=== PATIENT | male | born 1930 | race Caucasian/White ===

== ENCOUNTER 2016-02-16 20:22 | Inpatient (IN) | payer BC, OTHER ==
[~2016-02-16] VITALS: Ht 182.9 cm; Wt 96.5 kg
[~2016-02-16 20:22] MED LIST: ALFU10TA30 PO; ASPI81TA28 PO; DUTA0.5C PO; FURO-85 PO; LEVO125T4 PO; MULT-845 PO
--- NOTE | 2016-02-16 21:25 | DIAGNOSTIC IMAGING REPORT ---
CHEST ONE VIEW PORTABLE HISTORY: weakness COMPARISON: Chest 04/06/2015. FINDINGS: Slightly rotated study. Mild elevation the right hemidiaphragm, unchanged. Prior cholecystectomy. No focal lung consolidations to suggest pneumonia. No evidence for pulmonary edema. The heart is normal in size. No pleural effusions. No pneumothorax. IMPRESSION: No significant change compared to the prior study. No acute process. Electronically signed by: John Reddy M.D. 02/16/2016 9:23 PM Dictated Date/Time: 02/16/2016 9:22 PM
[2016-02-16 21:29] LABS: BASO % 0.2 %; BASO ABS # 0.04 K/uL (0-0.2); COMPLETE YES; EOS % 0.5 %; HEMATOCRIT 28.6 % (42-52); IG% 0.4 %; LYMPH % 13.1 %; LYMPH ABS # 2.44 K/uL (1.2-3.4); MEAN CELL VOLUME 85.4 fL (80-100); MEAN CORPUSCULAR HEMOGLOBIN 27.5 pg (25-34); MEAN CORPUSCULAR HGB CONC 32.2 g/dl (32-36); MEAN PLATELET VOLUME 10.4 fL (7.4-10.4); NEUT % 74.8 %; PLATELET COUNT 335 K/uL (130-400); RED BLOOD COUNT 3.35 M/uL (4.7-6.1)
[2016-02-16 21:36] LABS: BUN/CREATININE RATIO 30.8 (10-20); CALCIUM 9.2 mg/dl (8.5-10.1); CREATININE 2.3 mg/dl (0.60-1.40); POTASSIUM 3.6 mmol/L (3.5-5.1)
[2016-02-16 21:47] LABS: ALB/GLOB RATIO 0.5 (0.9-2); CKMB/CK RATIO 10.4 (0-3.0); THYROID STIMULATING HORMONE 1.36 uIu/ml (0.300-4.500)
[2016-02-16] MEDS ORDERED: SODIUM CHLORIDE 0.9% 250ML 250 ML IV STA (22:15)
[2016-02-16 22:36] LABS: MAGNESIUM 1.9 mg/dl (1.8-2.4)
--- NOTE | 2016-02-16 22:41 | EMERGENCY ROOM VISIT NOTE ---
ED Visit Note First contact with patient: 22:09 I have personally seen and evaluated the patient with the physician electrician's assistant. I agree with the diagnostic/management decisions and have personally been involved in these decisions and agree with the diagnosis.
[2016-02-16] MEDS ORDERED: ACET-749 PO (22:51)
[2016-02-17] VITALS (8 sets, daily range): BP systolic 90–126; BP diastolic 53–76; PULSE 76–103; TEMP 36.5–36.8; O2SAT 94–98; Ht 182.9 cm; Wt 96.5 kg
[2016-02-17] MEDS ORDERED: IV FLUIDS COMPLETED PRN (00:15)
--- NOTE | 2016-02-17 00:44 | EMERGENCY ROOM VISIT NOTE ---
History First contact with patient: 22:09 Chief Complaint: WEAKNESS Stated Complaint: weakness, ? flu Nursing Triage Summary: Pt arrives to ER via BLS following a fall. Pt reports "my legs collapsed, and I was on my knees." Pt has GI bug, reports diarrhea for last 10 days. Recurrent bladder CA, awaiting treatment at this time. Pt has bilateral leg weakness. Denies pain/or other injury. History of Present Illness The patient is a 85 year old male who presents to the Emergency Room with complaints of generalized weakness for past few days he was diagnosed with C. difficile on February 03 and just finished Flagyl. He states the diarrhea has tapered off this still is having loose stool. He states he has had a decreased appetite. He is barely drinking. He feels extremely weak. Patient is supposed to start chemotherapy and radiation but has not due to his recent illness of the C. difficile. He follows with Dr. Spicer. He has bladder carcinoma. He had an echo last year that showed some mild valve abnormality. He denies prior heart disease. Patient denies chest pain, dyspnea, fever, chills, abdominal pain, vomiting, back pain, headache, cough, congestion. Patient states he was so weak today he collapsed to the ground. Review of Systems See HPI for pertinent positives & negatives. A total of 10 systems reviewed and were otherwise negative. Past Medical/Surgical History Medical Problems: (1) Abnormal EKG (2) Bladder calculus (3) Bladder cancer (4) Elevated troponin I level Social History Smoking Status: Never Smoker Smokeless Tobacco Use: No Alcohol Use: none Drug Use: none Marital Status: Housing Status: lives with family Occupation Status: retired Current/Historical Medications Scheduled Alfuzosin Hcl (Uroxatral), 10 MG PO QPM Aspirin (Aspirin Ec), 81 MG PO QAM Dutasteride (Avodart), 0.5 MG PO QAM Furosemide (Lasix), 20 MG PO Q2D Levothyroxine Sodium (Levothyroxine Sodium), 1 TAB PO QAM Multiple Vitamins W/ Minerals (Centrum Silver Adult 50+), 1 TAB PO QAM Scheduled PRN Acetaminophen/Codeine (Tylenol W/Codeine #3), 1 TAB PO Q6 PRN for Pain Allergies Coded Allergies: No Known Allergies (Unverified , 02/16/16) Physical Exam Vital Signs Date Time Temp Pulse Resp B/P Pulse Ox O2 Delivery O2 Flow Rate FiO2 02/16/16 23:29 78 16 106/62 98 Room Air 02/16/16 22:29 80 16 106/64 98 Room Air 02/16/16 21:30 78 16 103/58 97 Room Air 02/16/16 20:56 80 02/16/16 20:51 98 Room Air 02/16/16 20:30 36.5 87 16 92/56 98 Room Air Pain Rating (0-10): 0 Physical Exam VITALS: Vitals are noted on the nurse's note and reviewed by myself. Vital signs hypotensive. GENERAL: Pleasant male mildly dehydrated appearing, in no acute distress, nondiaphoretic, well-developed well-nourished. SKIN: The skin was without rashes, erythema, edema, or bruising. There is no tenting of the skin. Capillary reflex less than 2 seconds. HEAD: Normocephalic atraumatic. EARS: External auditory canals clear, tympanic membranes pearly alamo without erythema or effusion bilaterally. EYES: Pupils equal round and reactive to light and accommodation. Conjunctivae without injection, sclerae without icterus. Extraocular movements intact. NOSE: Patent, turbinates without inflammation or discharge. MOUTH: Mucous membranes dry. Pharynx without erythema or exudate. Uvula midline. Airway patent. Tongue does not deviate. NECK: Supple without nuchal rigidity. No lymphadenopathy. No thyromegaly. Cervical spine is nontender. No JVD. HEART: Regular rate and rhythm LUNGS: Clear to auscultation bilaterally without wheezes, rales or rhonchi. No dullness to percussion. No retractions or accessory muscle use. ABDOMEN: Positive bowel sounds x 4. Normal tympanic percussion. Soft, nontender, without masses or organomegaly. Avila sign negative. No guarding or rebound tenderness. MUSCULOSKELETAL: No muscle atrophy, erythema, or edema noted. NEURO: Patient was alert and oriented to person place and time. Normal sensation to light and sharp touch. No focal neurological deficits. Cranial nerves II through XII grossly intact. No pronator drift. Cerebellar exam intact Medical Decision & Procedures Laboratory Results 02/16/16 20:30 Red Blood Count 3.35, Mean Corpuscular Volume 85.4, Mean Corpuscular Hemoglobin 27.5, Mean Corpuscular Hemoglobin Concent 32.2, Mean Platelet Volume 10.4, Neutrophils (%) (Auto) 74.8, Lymphocytes (%) (Auto) 13.1, Monocytes (%) (Auto) 11.0, Eosinophils (%) (Auto) 0.5, Basophils (%) (Auto) 0.2, Neutrophils # (Auto ) 13.89, Lymphocytes # (Auto) 2.44, Monocytes # (Auto) 2.05, Eosinophils # (Auto ) 0.10, Basophils # (Auto) 0.04 02/16/16 20:30 Test 02/16/16 20:30 02/16/16 21:04 White Blood Count 18.60 K/uL (4.8-10.8) Red Blood Count 3.35 M/uL (4.7-6.1) Hemoglobin 9.2 g/dL (14.0-18.0) Hematocrit 28.6 % (42-52) Mean Corpuscular Volume 85.4 fL (80-100) Mean Corpuscular Hemoglobin 27.5 pg (25-34) Mean Corpuscular Hemoglobin Concent 32.2 g/dl (32-36) Platelet Count 335 K/uL (130-400) Mean Platelet Volume 10.4 fL (7.4-10.4) Neutrophils (%) (Auto) 74.8 % Lymphocytes (%) (Auto) 13.1 % Monocytes (%) (Auto) 11.0 % Eosinophils (%) (Auto) 0.5 % Basophils (%) (Auto) 0.2 % Neutrophils # (Auto) 13.89 K/uL (1.4-6.5) Lymphocytes # (Auto) 2.44 K/uL (1.2-3.4) Monocytes # (Auto) 2.05 K/uL (0.11-0.59) Eosinophils # (Auto) 0.10 K/uL (0-0.5) Basophils # (Auto) 0.04 K/uL (0-0.2) RDW Standard Deviation 54.0 fL (36.4-46.3) RDW Coefficient of Variation 17.2 % (11.5-14.5) Immature Granulocyte % (Auto) 0.4 % Immature Granulocyte # (Auto) 0.08 K/uL (0.00-0.02) Anion Gap 14.0 mmol/L (3-11) Est Creatinine Clear Calc Drug Dose 26.7 ml/min Estimated GFR () 29.3 Estimated GFR (Non- 25.3 BUN/Creatinine Ratio 30.8 (10-20) Calcium Level 9.2 mg/dl (8.5-10.1) Magnesium Level 1.9 mg/dl (1.8-2.4) Total Bilirubin 0.2 mg/dl (0.2-1) Aspartate Amino Transf (AST/SGOT) 18 U/L (15-37) Alanine Aminotransferase (ALT/SGPT) 14 U/L (12-78) Alkaline Phosphatase 80 U/L (45-117) Total Creatine Kinase 23 U/L (39-308) Creatine Kinase MB 2.4 ng/ml (0.5-3.6) Creatine Kinase MB Ratio 10.4 (0-3.0) Total Protein 7.1 gm/dl (6.4-8.2) Albumin 2.4 gm/dl (3.4-5.0) Globulin 4.7 gm/dl (2.5-4.0) Albumin/Globulin Ratio 0.5 (0.9-2) Thyroid Stimulating Hormone (TSH) 1.360 uIu/ml (0.300-4.500) Bedside Troponin I 0.210 ng/ml (0-0.045) Medications Administered Medications (Trade) Dose Ordered Sig/Lizbeth Route Start Time Stop Time Status Last Admin Dose Admin Sodium Chloride (Nss 250ml) 250 ml @ 999 mls/hr Q16M STAT IV 02/16/16 22:15 02/16/16 22:30 DC 02/16/16 22:37 999 MLS/HR ED Course Prior records/ancillary studies reviewed and summarized above. Nursing notes reviewed. Additional history obtained from family The patient's history was concerning for weakness. Differential diagnosis: Etiologies such as metabolic, infection, hypo/hyperglycemia, electrolyte abnormalities, cardiac sources, intracerebral event, toxicologic, neurologic, as well as others were entertained. Physical examination: As above. ER treatment provided: IV Lock IV fluids On reassessment the patient felt better. Diagnostics interpretation by me: ECG: Normal sinus, normal axis, T-wave inversion in V3, T-wave flattening in the lateral leads, normal intervals, EKG compared to prior EKG with new EKG changes noted. Impression normal sinus rhythm with T-wave flattening and inversion in the lateral leads interpreted by myself The labs revealed elevated troponin. Leukocytosis. Anemia Imaging studies: [~ rep ct add3]] CHEST ONE VIEW PORTABLE HISTORY: weakness COMPARISON: Chest 04/06/2015. FINDINGS: Slightly rotated study. Mild elevation the right hemidiaphragm, unchanged. Prior cholecystectomy. No focal lung consolidations to suggest pneumonia. No evidence for pulmonary edema. The heart is normal in size. No pleural effusions. No pneumothorax. IMPRESSION: No significant change compared to the prior study. No acute process. Electronically signed by: John Reddy M.D. 02/16/2016 9:23 PM Consultation: A consultation was placed with the hospitalist, Dr. Shane. The case was discussed and diagnostics were reviewed. The patient was evaluated in the ER for further treatment. Exam and history seem consistent with weakness most likely from dehydration from the diarrhea and elevated troponin. Patient has new EKG changes. He's had no chest pain this past few weeks. No abdominal pain. Patient states he feels extremely weak. He will be evaluated by medicine for admission. Repeat EKG was unchanged. Stable creatinine per chart review.By the evaluation outlined above emergent etiologies such as intracerebral event, toxologic, neurologic, abnormalities blood glucose, metabolic, as well as others were deemed relatively unlikely. The pt informed about the findings as listed above. All questions were answered and pleased with the treatment. Case reviewed by attending Medical Decision As above Impression Primary Impression: Elevated troponin I level Additional Impressions: Bladder cancer Weakness Departure Information Dispostion Being Evaluated By Hospitalist Condition FAIR Referrals Too Nguyen M.D. (PCP) Patient Instructions A Signature Page, My [facility] Problem Qualifiers Additional Impressions:
[2016-02-17] MEDS ORDERED: ACETAMINOPHEN 325 MG TAB PO PRN (01:00)
[2016-02-17] MEDS ORDERED: ZOLPIDEM TARTRATE 5 MG TAB PO PRN (01:00)
[2016-02-17] MEDS ORDERED: SODIUM BICARBONATE 8.4% INJ 50 MEQ in SODIUM CHLORIDE 0.45% 1000ML 1,000 ML IV SCH (01:00)
[2016-02-17] MEDS ORDERED: ONDANSETRON INJ 2 MG/ML 2 ML VIAL IV PRN (01:15)
[2016-02-17] MEDS ORDERED: ACETAMINOPHEN/CODEINE 300/30MG TAB PO PRN (01:15)
[2016-02-17] MEDS ORDERED: ALFUZosin TAB 10 MG TAB PO STA (01:16)
[2016-02-17] MEDS: ALBUMIN HUMAN 25% 12.5 GM/50 ML VIAL IV SCH ×6 (01:33→19:37)
--- NOTE | 2016-02-17 02:55 | History and Physical ---
History & Physical Date & Time of Service: Feb 17, 2016 at 02:40 Chief Complaint: Abnormal Ekg, Elevated Troponin I Level Primary Care Physician: Too Nguyen M.D. History of Present Illness Source: patient, family, spouse The patient is a 85-year-old male who presents emergency department with family complaints of progressive generalized weakness over the past few days. He just completed a 10 day course of Flagyl for C. difficile colitis was diagnosed on February 03, and reports that his diarrhea has improved but is still having some loose stool. He and his family report that he's had decreased oral intake of both liquids and solids. He has a history of bladder carcinoma, following with Dr. Spicer, and has been unable to start chemotherapy and radiation due to this current illness. His weakness progressed to the point today that he fell to the ground, but reports no injuries. 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 Social History Smoking Status: Never Smoker Smokeless Tobacco Use: No Alcohol Use: none Drug Use: none Marital Status: Housing status: lives with family Occupational Status: retired Multi-Drug Resistant Organisms History of MDRO: No Allergies Coded Allergies: No Known Allergies (Unverified , 02/16/16) Home Medications Scheduled Alfuzosin Hcl (Uroxatral), 10 MG PO QPM Aspirin (Aspirin Ec), 81 MG PO QAM Dutasteride (Avodart), 0.5 MG PO QAM Furosemide (Lasix), 20 MG PO Q2D Levothyroxine Sodium (Levothyroxine Sodium), 1 TAB PO QAM Multiple Vitamins W/ Minerals (Centrum Silver Adult 50+), 1 TAB PO QAM Scheduled PRN Acetaminophen/Codeine (Tylenol W/Codeine #3), 1 TAB PO Q6 PRN for Pain Review of Systems The patient denies chest pain, palpitations, shortness of breath, cough, vision change, hearing change, sore throat, fevers, chills, sweats, nausea, vomiting, abdominal pain, pelvic pain, blood in urine or stool, dysuria, urinary frequency or urgency, headache, memory loss, rash, abnormal bruising or bleeding, focal weakness, numbness or tingling in arms or legs, night sweats, or allergy symptoms. The review of systems is otherwise negative other than for that already noted above, and at least 10 systems have been reviewed. Physical Exam Vital Signs Date Time Temp Pulse Resp B/P Pulse Ox O2 Delivery O2 Flow Rate FiO2 02/17/16 00:35 36.5 82 20 111/68 98 Room Air 02/16/16 23:29 78 16 106/62 98 Room Air 02/16/16 22:29 80 16 106/64 98 Room Air 02/16/16 21:30 78 16 103/58 97 Room Air 02/16/16 20:56 80 02/16/16 20:51 98 Room Air 02/16/16 20:30 36.5 87 16 92/56 98 Room Air The patient is awake, alert and oriented 3, normocephalic and atraumatic, appears chronically ill, lying in bed and in no acute distress. HEENT--PERRL, EOMI, mucous membranes and oropharynx dry. Neck--supple, no JVD or bruits, thyroid normal, trachea midline, no adenopathy. Heart--normal S1 and S2, no extra beats, no murmurs, rubs or gallops. Lungs--clear bilaterally with good air movement, no respiratory distress, no accessory muscle use. Abdomen--normal bowel sounds and soft, nontender and nondistended, no hernias or masses, no organomegaly. Extremities--no cyanosis, clubbing or edema. There are good distal pulses b/l. Dermatologic--normal skin turgor, normal color, warm and dry, no abnormal lymph nodes, no rash. Neurologic--cranial nerves II through XII grossly intact. Psychiatric--normal affect. Diagnostics Laboratory Results Results Past 24 Hours Test 02/16/16 20:30 02/16/16 21:04 Range/Units White Blood Count 18.60 4.8-10.8 K/uL Red Blood Count 3.35 4.7-6.1 M/uL Hemoglobin 9.2 14.0-18.0 g/dL Hematocrit 28.6 42-52 % Mean Corpuscular Volume 85.4 80-100 fL Mean Corpuscular Hemoglobin 27.5 25-34 pg Mean Corpuscular Hemoglobin Concent 32.2 32-36 g/dl Platelet Count 335 130-400 K/uL Mean Platelet Volume 10.4 7.4-10.4 fL Neutrophils (%) (Auto) 74.8 % Lymphocytes (%) (Auto) 13.1 % Monocytes (%) (Auto) 11.0 % Eosinophils (%) (Auto) 0.5 % Basophils (%) (Auto) 0.2 % Neutrophils # (Auto) 13.89 1.4-6.5 K/uL Lymphocytes # (Auto) 2.44 1.2-3.4 K/uL Monocytes # (Auto) 2.05 0.11-0.59 K/uL Eosinophils # (Auto) 0.10 0-0.5 K/uL Basophils # (Auto) 0.04 0-0.2 K/uL RDW Standard Deviation 54.0 36.4-46.3 fL RDW Coefficient of Variation 17.2 11.5-14.5 % Immature Granulocyte % (Auto) 0.4 % Immature Granulocyte # (Auto) 0.08 0.00-0.02 K/uL Sodium Level 144 136-145 mmol/L Potassium Level 3.6 3.5-5.1 mmol/L Chloride Level 119 98-107 mmol/L Carbon Dioxide Level 11 21-32 mmol/L Anion Gap 14.0 3-11 mmol/L Blood Urea Nitrogen 71 7-18 mg/dl Creatinine 2.30 0.60-1.40 mg/dl Est Creatinine Clear Calc Drug Dose 26.7 ml/min Estimated GFR () 29.3 Estimated GFR (Non- 25.3 BUN/Creatinine Ratio 30.8 10-20 Random Glucose 115 70-99 mg/dl Calcium Level 9.2 8.5-10.1 mg/dl Magnesium Level 1.9 1.8-2.4 mg/dl Total Bilirubin 0.2 0.2-1 mg/dl Aspartate Amino Transf (AST/SGOT) 18 15-37 U/L Alanine Aminotransferase (ALT/SGPT) 14 12-78 U/L Alkaline Phosphatase 80 45-117 U/L Total Creatine Kinase 23 39-308 U/L Creatine Kinase MB 2.4 0.5-3.6 ng/ml Creatine Kinase MB Ratio 10.4 0-3.0 Troponin I 0.285 0-0.045 ng/ml Total Protein 7.1 6.4-8.2 gm/dl Albumin 2.4 3.4-5.0 gm/dl Globulin 4.7 2.5-4.0 gm/dl Albumin/Globulin Ratio 0.5 0.9-2 Thyroid Stimulating Hormone (TSH) 1.360 0.300-4.500 uIu/ml Bedside Troponin I 0.210 0-0.045 ng/ml Diagnostic Radiology Patient Name: FELIBERTO BARTON Unit Number: [id number] Dictated: 02/16/162121 Transcribed: 02/16/162121 [employer] Printed Date/Time: [~ rep prt dt]/[~ rep prt tm] [~ rep ct labl] - [~ rep ct ivnm] [facility] [place] [place] [address] Dictated: 02/16/162121 Transcribed: 02/16/162121 [facility] Printed Date/Time: [~ rep prt dt]/[~ rep prt tm] [~ rep ct labl] - [~ rep ct ivnm] CHEST ONE VIEW PORTABLE HISTORY: weakness COMPARISON: Chest 04/06/2015. FINDINGS: Slightly rotated study. Mild elevation the right hemidiaphragm, unchanged. Prior cholecystectomy. No focal lung consolidations to suggest pneumonia. No evidence for pulmonary edema. The heart is normal in size. No pleural effusions. No pneumothorax. IMPRESSION: No significant change compared to the prior study. No acute process. Electronically signed by: John Reddy M.D. 02/16/2016 9:23 PM Dictated Date/Time: 02/16/2016 9:22 PM The status of this report is Signed. Draft = Not yet reviewed or approved by Radiologist. Signed = Reviewed and approved by Radiologist. <AttendingPhy></AttendingPhy> <FamilyPhy>Too Nguyen M.D.</FamilyPhy > <PrimaryPhy>Too Nguyen M.D.</PrimaryPhy> <UnitNumber>[id number]</ UnitNumber> <VisitNumber>[id number]</VisitNumber> <PatientName>FELIBERTO BARTON</ PatientName> <DateOfBirth>1930</DateOfBirth> <Location>[facility]</Location> < ServiceDate>02/16/16</ServiceDate> <MNE>ESINDI</MNE> <OrderingPhy>ED, PROTOCOL</ OrderingPhy> <OrderingPhyMNE>f rep ord dr osborn</OrderingPhyMNE> <DictatingPhyMNE> f rep dict dr osborn</DictatingPhyMNE> <CCListMNE>f rep ct anurag</CCListMNE> < AdmittingPhyMNE>f pt admit dr osborn</AdmittingPhyMNE> <AttendingPhyMNE>f pt attend dr osborn</AttendingPhyMNE> <ConsultingPhyMNE>f pt consult dr osborn</ConsultingPhyMNE> <FamilyPhyMNE>f pt fam dr osborn</FamilyPhyMNE> <OtherPhyMNE>f pt other dr osborn</OtherPhyMNE> < PrimaryPhyMNE>f pt prim care dr osborn</PrimaryPhyMNE> <ReferringPhyMNE>f pt referring dr osborn</ReferringPhyMNE> EKG EKG shows normal sinus rhythm at 80 bpm, with ST depressions and T-wave inversions in leads V3 and V4, and ST flattening in V5 and V6. Impression Assessment and Plan Elevated troponin of 0.285, with EKG changes suggesting anterior lateral ischemia--the patient will be admitted to telemetry unit, for serial cardiac enzymes, cardiac rhythm monitoring, and a 2-D echocardiogram with Dopplers. This is likely at least in part secondary to the stress of recent illness. Continue aspirin 81 mg by mouth daily. C. difficile colitis--the patient did just patient 10 day course of Flagyl, however, he still has some faint residual symptoms, and will therefore be on Flagyl 500 mg by mouth twice a day, and we'll repeat stool for C. difficile. He 'll be placed on half-normal saline with 1 amp of sodium bicarbonate at 100 mils per hour, and will follow serial basic metabolic panel and magnesium levels. He'll also get albumin 25 g IV every 6 hours for 4 doses. We will hold Lasix 20 mg by mouth every [address] on pantoprazole 40 mg by mouth every morning. Anemia--we will check iron, TIBC, ferritin, B12 and folic acid levels. Bladder carcinoma--we'll consult Dr. Spicer. The patient notes he has not been able to get to undergo chemotherapy or radiation therapy due to C. difficile illness. BPH--continue Uroxatral 10 mg by mouth every afternoon, and Avodart 0.5 mg by mouth every morning. Hypothyroidism continue levothyroxine sodium at 125 g by mouth every morning. Level of Care Telemetry Advanced Directives Existing Advance Directive: No Existing Living Will: Yes Existing Power of Reprint Sorter: Yes Resuscitation Status FULL RESUSCITATION VTE Prophylaxis VTE Risk Assessment Done? Y/N: Yes Risk Level: Moderate Given or contraindicated: SCD's Social Service Consult Cancer Patient Under [place]
[2016-02-17] MEDS: LEVOTHYROXINE 125 MCG TAB PO SCH (06:02)
[2016-02-17] MEDS ORDERED: NURSING VERBAL MED ORDER ONE (06:15)
[2016-02-17 07:25] LABS: CKMB/CK RATIO 5.9 (0-3.0); FERRITIN 511.4 ng/ml (8.0-388.0)
[2016-02-17] MEDS: AVODART~ORDER AWAITING ACTION SCH ×3 (08:00→22:27)
[2016-02-17] MEDS: CHOLESTYRAMINE LIGHT 4 GM PKT PO SCH ×2 (08:22→21:11)
[2016-02-17] MEDS: METRONIDAZOLE 500 MG TAB PO SCH ×2 (08:22→19:47)
[2016-02-17] MEDS: PANTOprazole SOD 40 MG TAB PO SCH (08:22)
[2016-02-17] MEDS: CEROVITE ADV FORMULA TAB PO SCH (08:23)
[2016-02-17] MEDS: ASPIRIN 81 MG ECTAB PO SCH (08:23)
[2016-02-17] MEDS: SODIUM CHLORIDE 0.9% 1000ML 1,000 ML IV SCH ×2 (11:33→19:47)
[2016-02-17] MEDS: FERROUS SULFATE 325 MG TAB PO SCH ×2 (11:33→16:46)
[2016-02-17 14:12] LABS: CKMB/CK RATIO 5.2 (0-3.0)
--- NOTE | 2016-02-17 15:09 | Progress Note ---
Subjective Date of Service: Feb 17, 2016. Subjective pt still with voluminous foul smelling diarrhea, c diff negative cultures pending some non descript ECG changes and minor trop elevation Problem List Medical Problems: (1) Complication of catheter Status: Acute (2) Ferreira catheter problem Status: Acute (3) Weakness Status: Acute Review of Systems Constitutional: + weakness, No chills, No fatigue, No fever Respiratory: No cough, No shortness of breath Cardiac: No chest pain, No edema Abdomen: + diarrhea, + nausea, No constipation, No pain, No vomiting Psychiatric: + problem reported (loss of appetite), No anhedonism, No anxiety, No depression symptoms Objective Vital Signs Date Time Temp Pulse Resp B/P Pulse Ox O2 Delivery O2 Flow Rate FiO2 02/17/16 08:07 36.6 76 18 92/53 94 02/17/16 08:00 Room Air 02/17/16 04:00 96 Room Air 02/17/16 03:30 36.7 103 21 90/54 96 Room Air 02/17/16 00:35 36.5 82 20 111/68 98 Room Air 02/16/16 23:29 78 16 106/62 98 Room Air 02/16/16 22:29 80 16 106/64 98 Room Air 02/16/16 21:30 78 16 103/58 97 Room Air 02/16/16 20:56 80 02/16/16 20:51 98 Room Air 02/16/16 20:30 36.5 87 16 92/56 98 Room Air Physical Exam General Appearance: + mild distress, + thin Neck: supple, no JVD Respiratory/Chest: chest non-tender, lungs clear, normal breath sounds Cardiovascular: regular rate, rhythm, no murmur Abdomen: normal bowel sounds, non tender, soft Extremities: no pedal edema, no calf tenderness Laboratory Results Last 24 Hours Test 02/16/16 20:30 02/16/16 21:04 02/17/16 06:14 White Blood Count 18.60 K/uL Red Blood Count 3.35 M/uL Hemoglobin 9.2 g/dL Hematocrit 28.6 % Mean Corpuscular Volume 85.4 fL Mean Corpuscular Hemoglobin 27.5 pg Mean Corpuscular Hemoglobin Concent 32.2 g/dl Platelet Count 335 K/uL Mean Platelet Volume 10.4 fL Neutrophils (%) (Auto) 74.8 % Lymphocytes (%) (Auto) 13.1 % Monocytes (%) (Auto) 11.0 % Eosinophils (%) (Auto) 0.5 % Basophils (%) (Auto) 0.2 % Neutrophils # (Auto) 13.89 K/uL Lymphocytes # (Auto) 2.44 K/uL Monocytes # (Auto) 2.05 K/uL Eosinophils # (Auto) 0.10 K/uL Basophils # (Auto) 0.04 K/uL RDW Standard Deviation 54.0 fL RDW Coefficient of Variation 17.2 % Immature Granulocyte % (Auto) 0.4 % Immature Granulocyte # (Auto) 0.08 K/uL Sodium Level 144 mmol/L Potassium Level 3.6 mmol/L Chloride Level 119 mmol/L Carbon Dioxide Level 11 mmol/L Anion Gap 14.0 mmol/L Blood Urea Nitrogen 71 mg/dl Creatinine 2.30 mg/dl Est Creatinine Clear Calc Drug Dose 26.7 ml/min Estimated GFR () 29.3 Estimated GFR (Non- 25.3 BUN/Creatinine Ratio 30.8 Random Glucose 115 mg/dl Calcium Level 9.2 mg/dl Magnesium Level 1.9 mg/dl Total Bilirubin 0.2 mg/dl Aspartate Amino Transf (AST/SGOT) 18 U/L Alanine Aminotransferase (ALT/SGPT) 14 U/L Alkaline Phosphatase 80 U/L Total Creatine Kinase 23 U/L 29 U/L Creatine Kinase MB 2.4 ng/ml 1.7 ng/ml Creatine Kinase MB Ratio 10.4 5.9 Troponin I 0.285 ng/ml 0.171 ng/ml Total Protein 7.1 gm/dl Albumin 2.4 gm/dl Globulin 4.7 gm/dl Albumin/Globulin Ratio 0.5 Thyroid Stimulating Hormone (TSH) 1.360 uIu/ml Bedside Troponin I 0.210 ng/ml Iron Level 17 mcg/dl Total Iron Binding Capacity 121 mcg/dl Ferritin 511.4 ng/ml Vitamin B12 Level 951 pg/mL Folate 14.08 ng/mL Assessment and Plan 85 M with recent c diff, presents with weakness that preceeded his C diff, abnormal ECG and very mild troponin elevation. CAD, ecg change from 2016, Elevated troponin of 0.285, pending echocardiogram with Dopplers. aspirin 81 mg cardiology evaluation C. difficile colitis--the patient did just patient 10 day course of Flagyl, negative repeat C diff, will start probiotic. Anemia-iron deficient will start iron this plus diarrhea makes consideration of evaluation of colon, last CT suggested colon abnormality, also has history of rectal stricture and I cannot see a colonoscopy in the chart, if rectal stricture is significant could explain overflow diarrhea, Bladder carcinoma--we'll consult Dr. Spicer. The patient notes he has not been able to get to undergo chemotherapy or radiation therapy due to C. difficile illness. BPH--continue Uroxatral 10 mg by mouth every afternoon, and Avodart 0.5 mg by mouth every morning. Hypothyroidism continue levothyroxine sodium at 125 g by mouth every morning.
--- NOTE | 2016-02-17 17:36 | ECHOCARDIOGRAM REPORT ---
*NOTICE TO RECEIVING CONSTITUTION PARTY AGENCY This information is strictly Confidential and protected under [place] law. [place] law prohibits you from making any further disclosure of this information unless further disclosure is expressly permitted by the written consent of the person to whom it pertains or is authorized by law. A general authorization for the release of medical or other information is not sufficient for this purpose. Hospital accepts no responsibility if the information is made available to any other person, INCLUDING THE PATIENT. Interpretation Summary * Name: FELIBERTO BARTON Study Date: 02/17/2016 07:57 AM BP: 90/54 mmHg * Patient Location: C.2T\S\E217\S\1 HR: 82 * : 1930 (M/d/yyyy) Gender: Male Height: 72 in * Age: 85 yrs Ethnicity: CA Weight: 196 lb * Ordering Physician: Elia Cash * Referring Physician: Self, Referred * Performed By: Nidhi Coronado RCS * * Reason For Study: ELEVATED TROPONIN / ABN EKG * BSA: 2.1 m2 * -- Conclusions -- * Left ventricular systolic function is low normal. * Ejection Fraction = 50-55%. * There is mild concentric left ventricular hypertrophy. * Significant apical hypertrophy. * Grade I diastolic dysfunction, (abnormal relaxation pattern). * Mild aortic root dilatation. Procedure Details * A complete two-dimensional transthoracic echocardiogram was performed (2D, M-mode, Doppler and color flow Doppler). Left Ventricle * The left ventricle is normal in size. * There is mild concentric left ventricular hypertrophy. * Apical hypertrophy is present. * Significant apical hypertrophy. * Ejection Fraction = 50-55%. * Left ventricular systolic function is low normal. Right Ventricle * The right ventricle is not well visualized. * The right ventricular systolic function is normal as assessed by tricuspid annular plane systolic excursion (TAPSE) (normal >1.5 cm). Atria * The left atrium is mildly dilated. * Right atrial size is normal. * There is no evidence of atrial septal defect, but resolution does not allow assessment for a patent foramen ovale. Mitral Valve * The mitral valve is grossly normal. * There is no mitral valve stenosis. * Significant mitral regurgitation is absent. Tricuspid Valve * The tricuspid valve is not well visualized, but is grossly normal. * There is trace tricuspid regurgitation. Aortic Valve * The aortic valve is not well visualized. * The aortic valve opens well. * No hemodynamically significant valvular aortic stenosis. * No aortic regurgitation is present. Pulmonic Valve * The pulmonic valve is not well visualized. Great Vessels * Mild aortic root dilatation. * The pulmonary is not well visualized. Pericardium/Pleural * There is no pericardial effusion. Great Vessels * IVC not well seen. Left Ventricular Diastolic Function * Grade I diastolic dysfunction, (abnormal relaxation pattern). MMode 2D Measurements and Calculations IVSd 1.5 cm IVSs 1.4 cm LVIDd 3.9 cm LVIDs 3.3 cm LVPWd 1.3 cm LVPWs 1.3 cm IVS/LVPW 1.1 FS 15.6 % EDV(Teich) 64.7 ml ESV(Teich) 43.1 ml EF(Teich) 33.5 % EDV(cubed) 58.0 ml ESV(cubed) 34.9 ml EF(cubed) 39.9 % % IVS thick -6.25 % % LVPW thick -5.29 % LV mass(C)d 201.0 grams LV mass(C)dI 95.2 grams/m\S\2 LV mass(C)s 144.2 grams LV mass(C)sI 68.2 grams/m\S\2 SV(Teich) 21.7 ml SI(Teich) 10.3 ml/m\S\2 SV(cubed) 23.1 ml SI(cubed) 10.9 ml/m\S\2 Ao root diam 4.3 cm Ao root area 14.6 cm\S\2 LA dimension 4.1 cm LA/Ao 0.96 LVOT diam 2.3 cm LVOT area 4.3 cm\S\2 LVAd ap4 44.5 cm\S\2 LVLd ap4 8.7 cm EDV(MOD-sp4) 184.5 ml EDV(sp4-el) 193.9 ml LVAs ap4 30.1 cm\S\2 LVLs ap4 7.6 cm ESV(MOD-sp4) 97.8 ml ESV(sp4-el) 101.6 ml EF(MOD-sp4) 47.0 % EF(sp4-el) 47.6 % LVAd ap2 36.9 cm\S\2 LVLd ap2 8.9 cm EDV(MOD-sp2) 125.2 ml EDV(sp2-el) 129.3 ml LVAs ap2 28.2 cm\S\2 LVLs ap2 8.3 cm ESV(MOD-sp2) 76.1 ml ESV(sp2-el) 81.3 ml EF(MOD-sp2) 39.2 % EF(sp2-el) 37.1 % LVLd %diff 2.7 % EDV(MOD-bp) 154.4 ml LVLs %diff 8.8 % ESV(MOD-bp) 92.2 ml EF(MOD-bp) 40.3 % SV(MOD-sp4) 86.6 ml SI(MOD-sp4) 41.0 ml/m\S\2 SV(MOD-sp2) 49.1 ml SI(MOD-sp2) 23.2 ml/m\S\2 SV(MOD-bp) 62.2 ml SI(MOD-bp) 29.4 ml/m\S\2 SV(sp4-el) 92.3 ml SI(sp4-el) 43.7 ml/m\S\2 SV(sp2-el) 48.0 ml SI(sp2-el) 22.7 ml/m\S\2 Doppler Measurements and Calculations Ao V2 max 198.9 cm/sec Ao max PG 15.8 mmHg Ao max PG (full) 13.3 mmHg Ao V2 mean 126.4 cm/sec Ao mean PG 7.5 mmHg Ao V2 VTI 36.3 cm SUMEET(V,A) 1.7 cm\S\2 SUMEET(V,D) 1.7 cm\S\2 LV V1 max PG 2.6 mmHg LV V1 max 80.3 cm/sec SV(Ao) 530.1 ml SI(Ao) 251.0 ml/m\S\2 TR max vasquez 255.4 cm/sec
--- NOTE | 2016-02-17 19:16 | DIAGNOSTIC IMAGING REPORT ---
CT SCAN OF THE ABDOMEN AND PELVIS WITHOUT CONTRAST CLINICAL HISTORY: Bladder carcinoma A VIRUS COLONIC INVASION COMPARISON STUDY: 12/23/2015 TECHNIQUE: CT scan of the abdomen and pelvis was performed from the lung bases to the proximal femurs. Images are reviewed in the axial, sagittal, and coronal planes. IV contrast was not administered for this examination. CT DOSE: 516.24 mGy.cm FINDINGS: Lower chest: There are coronary artery calcifications. Liver: There is a stable 13 mm hypodensity within the inferior aspect of the right lobe. This approaches water attenuation and may represent a cyst Gallbladder: Surgically absent Spleen: Normal in size and attenuation. Pancreas: Unremarkable. Adrenal glands: Unremarkable. Kidneys: There is persistent bilateral hydronephrosis. There is bilateral perinephric stranding. There is a 5.4 cm left renal mass likely representing a cyst. There is a second exophytic 28 mm mass, also likely representing a cyst. Bowel: There are no transition zones indicate bowel obstruction. There is a mildly distended fluid-filled rectum measuring 76 mm in diameter. Peritoneum: There is no intraperitoneal free air or abdominal ascites. Vasculature: There is mild dilatation of the infrarenal abdominal aorta which measures 32 mm in maximal diameter. Adenopathy: None. Pelvic viscera: There is a large bladder mass (greater than 8 cm) which appears to extend into the perivesical fat. The mass abuts small bowel loops and small bowel invasion cannot be excluded. There are 2 distal left ureteral calculi the largest of which measures 9 mm. Skeletal structures: No destructive osseous lesions are seen. IMPRESSION: 1. No evidence of bowel obstruction. No evidence of free air 2. Large bladder mass with extravesical soft tissue extension. The mass abuts small bowel loops, and direct extension most be considered. There is air within the bladder. In the absence of recent instrumentation, this could indicate a fistula with adjacent small bowel loops 3. Bilateral hydronephrosis and hydroureter 4. Distal left ureteral calculi 5. 32 mm abdominal aortic aneurysm Electronically signed by: Jean Bonds M.D. 02/17/2016 7:14 PM Dictated Date/Time: 02/17/2016 7:06 PM
[2016-02-17] MEDS: LOPERAMIDE HCL 2 MG CAP PO PRN (19:46)
[2016-02-17] MEDS: ALFUZosin TAB 10 MG TAB PO SCH (19:47)
[2016-02-17] MEDS: BOOST VANILLA PO SCH ×2 (20:10)
[2016-02-17 21:49] LABS: CKMB/CK RATIO 7.6 (0-3.0)
[2016-02-18] VITALS (7 sets, daily range): BP systolic 71–117; BP diastolic 38–67; PULSE 76–95; TEMP 36.3–36.9; O2SAT 95–99
[2016-02-18] MEDS: SODIUM CHLORIDE 0.9% 1000ML 1,000 ML IV SCH (06:18)
[2016-02-18] MEDS: LEVOTHYROXINE 125 MCG TAB PO SCH (06:18)
[2016-02-18 07:15] LABS: BASO % 0.3 %; BASO ABS # 0.05 K/uL (0-0.2); HEMATOCRIT 25.1 % (42-52); IG% 0.4 %; LYMPH % 12.6 %; LYMPH ABS # 1.82 K/uL (1.2-3.4); MEAN CELL VOLUME 83.9 fL (80-100); MEAN CORPUSCULAR HEMOGLOBIN 26.8 pg (25-34); MEAN CORPUSCULAR HGB CONC 31.9 g/dl (32-36); MEAN PLATELET VOLUME 9.6 fL (7.4-10.4); MONO % 9.8 %; NEUT % 75.9 %; PLATELET COUNT 264 K/uL (130-400); RED BLOOD COUNT 2.99 M/uL (4.7-6.1); WHITE BLOOD COUNT 14.41 K/uL (4.8-10.8)
[2016-02-18 07:39] LABS: ANISOCYTOSIS PRESENT; COMPLETE YES; ECHINOCYTES 2+; HYPOCHROMIA PRESENT
[2016-02-18] MEDS: FERROUS SULFATE 325 MG TAB PO SCH ×2 (07:53→17:25)
[2016-02-18] MEDS: ASPIRIN 81 MG ECTAB PO SCH (07:54)
[2016-02-18] MEDS: SACCHAROMYCES BOUL (FLORASTOR) 250 MG CAP PO SCH (07:54)
[2016-02-18] MEDS: PANTOprazole SOD 40 MG TAB PO SCH (07:55)
[2016-02-18] MEDS: AVODART~ORDER AWAITING ACTION SCH ×3 (07:55→22:22)
[2016-02-18] MEDS: CEROVITE ADV FORMULA TAB PO SCH (07:55)
[2016-02-18] MEDS: METRONIDAZOLE 500 MG TAB PO SCH ×2 (07:55→20:29)
[2016-02-18] MEDS ORDERED: CIPROFLOXACIN / D5W 400 MG in PREMIXED IN D5W 200 ML IV ONE (08:00)
[2016-02-18 08:07] LABS: BUN/CREATININE RATIO 32.8 (10-20); CALCIUM 8.6 mg/dl (8.5-10.1); MAGNESIUM 1.7 mg/dl (1.8-2.4)
[2016-02-18] MEDS: BOOST VANILLA PO SCH ×4 (09:00→20:27)
[2016-02-18] MEDS: CHOLESTYRAMINE LIGHT 4 GM PKT PO SCH ×3 (10:30→22:36)
--- NOTE | 2016-02-18 10:54 | Cardiology Consultation ---
Cardiology Consultation Date of Consultation: Feb 18, 2016. Requesting Physician: Dr. Yancey Attending Physician: Dr. Neal Reason for Consultation: Elevated Troponin, EKG changes Pt evaluation today including: conversation w/ patient, physical exam, chart review, lab review, review of studies, conversation w/ salon sales consultant, review of inpatient medication list, conversation w/ attending History of Present Illness Mr. Rendon is an 85-year-old male with a past medical history significant for hypertension, hyperlipidemia, prediabetes, hypothyroidism, bladder CA with squamous differentiation, acute on chronic renal insufficiency and obstructive nephropathy, and recent C difficile infection who presented to the ED yesterday with complaints of generalized weakness with fall. He reports that he has noted generalized weakness for the past few days, and he collapsed onto his knees yesterday. He did not sustain an injury with the fall. He is supposed to start chemotherapy and radiation for his bladder CA, however, it was postponed due to recent C diff infection diagnosed on 02/04/16. He has finished a course of Flagyl, and diarrhea has tapered but he continues to note loose stool. ECG upon presentation showed normal sinus rhythm with flattening of his T waves in the anterolateral leads, which is new compared to prior ECG in April 2015. He has had mild Troponin elevation with rise to a peak of 0.408. Echocardiogram shows low normal LV systolic function and apical hypertrophy. He was noted to be anemic (hgb 9.2, 8.0). Patient seen at bedside this morning. He notes tiredness and fatigue, but otherwise is feeling well. He denies any chest discomfort, other anginal type symptoms, or limiting dyspnea. He further denies any orthopnea, PND, or significant edema. He denies palpitations, lightheadedness, dizziness, syncope, presyncope, abnormal bleeding, or cerebrovascular symptoms. He denies cough or wheezing. He denies nausea, vomiting, or abdominal pain. Review of Systems: As noted in HPI. All other 10 point ROS otherwise negative. Family History No family hx of premature CAD. Social History Smoking Status: Never Smoker History of Alcohol Use: No He is and lives at home with his . They have one son. He is retired from [employer]. He denies smoking, alcohol, or drug use. Review of Systems Respiratory: No cough, No shortness of breath Cardiac: No chest pain, No edema Allergies Coded Allergies: No Known Allergies (Unverified , 02/16/16) Medications Current Inpatient Medications Medications (Trade) Dose Ordered Sig/Lizbeth Route Start Time Stop Time Status Last Admin Dose Admin Miscellaneous (Iv Fluids Completed) 1 ea PRN PRN N/A 02/17/16 00:15 02/16/17 00:14 Acetaminophen (Tylenol Tab) 650 mg Q4H PRN PO 02/17/16 01:00 03/18/16 00:59 Zolpidem Tartrate (Ambien Tab) 5 mg HSZ PRN PO 02/17/16 01:00 03/18/16 00:59 Ondansetron HCl (Zofran Inj) 4 mg Q6H PRN IV 02/17/16 01:15 03/18/16 01:14 Acetaminophen/ Codeine Phosphate (Tylenol w/ Codeine #3 Tab) 1 tab Q6 PRN PO 02/17/16 01:15 03/18/16 01:14 Alfuzosin HCl (Uroxatral Tab) 10 mg QPM PO 02/17/16 21:00 03/18/16 20:59 02/17/16 19:47 10 MG Aspirin (Ecotrin Tab) 81 mg QAM PO 02/17/16 09:00 03/18/16 08:59 02/18/16 07:54 81 MG Levothyroxine Sodium (Synthroid Tab) 125 mcg DAILYBB PO 02/17/16 06:00 03/18/16 05:59 02/18/16 06:18 125 MCG Multivitamins/ Minerals (Multivitamin W/ Minerals Tab) 1 tab QAM PO 02/17/16 09:00 03/18/16 08:59 02/18/16 07:55 1 TAB Miscellaneous Information (Order Awaiting Action) 1 ea QS N/A 02/17/16 08:00 03/18/16 07:59 Metronidazole (Flagyl Tab) 500 mg BID PO 02/17/16 09:00 03/02/16 08:59 02/18/16 07:55 500 MG Pantoprazole Sodium (Protonix Tab) 40 mg QAM PO 02/17/16 09:00 03/18/16 08:59 02/18/16 07:55 40 MG Cholestyramine Resin 4 gm 4 gm BID@1000,2200 PO 02/17/16 10:00 03/18/16 09:59 02/17/16 08:22 4 GM Sodium Chloride (Nss 1000ml) 1,000 ml @ 100 mls/hr Q10H IV 02/17/16 10:30 03/18/16 10:29 02/18/16 06:18 100 MLS/HR Loperamide HCl (Imodium Cap) 2 mg UD PRN PO 02/17/16 10:30 03/18/16 10:29 02/17/16 19:46 2 MG Ferrous Sulfate (Feosol Tab) 325 mg BIDM PO 02/17/16 11:15 03/18/16 11:14 02/18/16 07:53 325 MG Enteral Nutritional Formula (Boost) 1 can BID PO 02/17/16 21:00 03/18/16 20:59 02/17/16 20:10 1 CAN Saccharomyces Boulardii 250 mg 250 mg DAILY PO 02/18/16 09:00 03/19/16 08:59 02/18/16 07:54 250 MG Ciprofloxacin/ Dextrose 400 mg/ Prmx 200 ml @ 100 mls/hr Q12 IV 02/18/16 09:00 02/28/16 08:59 UNV Ciprofloxacin/ Dextrose/Prmx (Cipro / D5w/ Premixed D5W) 200 ml @ 100 mls/hr TODAY@0800 ONCE IV 02/18/16 08:00 02/18/16 09:59 02/18/16 07:53 100 MLS/HR Physical Exam Vital Signs Past 12 Hours Date Time Temp Pulse Resp B/P Pulse Ox O2 Delivery O2 Flow Rate FiO2 02/18/16 07:56 36.9 85 18 98/59 97 02/18/16 04:10 36.8 90 20 108/62 98 Room Air 02/18/16 04:00 Room Air 02/18/16 00:30 117/62 02/18/16 00:20 36.7 94 19 71/44 95 Room Air 82/38 02/18/16 00:00 Room Air 02/17/16 23:47 36.6 80 18 95/54 96 Room Air Constitutional: Alert, oriented, in no acute distress HEENT: Head is atraumatic and normocephalic. EOMs intact. Sclera anicteric. Face is symmetric. No perioral cyanosis. Mucous membranes moist. Neck: Supple, no JVD, no carotid bruits Pulmonary: Normal respiratory effort, clear to auscultation bilaterally Cardiac: Regular rate and rhythm, normal S1 and S2, no gallops, no rubs, no murmurs Extremities: SCDs bilateral lower extremities. No clubbing, cyanosis, or edema. Pulses intact. Abdomen: Normal bowel sounds, soft, non-tender, no abdominal mass palpated Skin: Normal skin color, turgor, and pigmentation, no rash, no skin lesions Neurological: Oriented to person, place, and time Data Laboratory Results: Last 24 Hours Test 02/17/16 12:55 02/17/16 21:07 02/18/16 06:52 Total Creatine Kinase 50 U/L 42 U/L Creatine Kinase MB 2.6 ng/ml 3.2 ng/ml Creatine Kinase MB Ratio 5.2 7.6 Troponin I 0.156 ng/ml 0.408 ng/ml White Blood Count 14.41 K/uL Red Blood Count 2.99 M/uL Hemoglobin 8.0 g/dL Hematocrit 25.1 % Mean Corpuscular Volume 83.9 fL Mean Corpuscular Hemoglobin 26.8 pg Mean Corpuscular Hemoglobin Concent 31.9 g/dl Platelet Count 264 K/uL Mean Platelet Volume 9.6 fL Neutrophils (%) (Auto) 75.9 % Lymphocytes (%) (Auto) 12.6 % Monocytes (%) (Auto) 9.8 % Eosinophils (%) (Auto) 1.0 % Basophils (%) (Auto) 0.3 % Neutrophils # (Auto) 10.92 K/uL Lymphocytes # (Auto) 1.82 K/uL Monocytes # (Auto) 1.41 K/uL Eosinophils # (Auto) 0.15 K/uL Basophils # (Auto) 0.05 K/uL RDW Standard Deviation 52.9 fL RDW Coefficient of Variation 17.1 % Immature Granulocyte % (Auto) 0.4 % Immature Granulocyte # (Auto) 0.06 K/uL Hypochromasia PRESENT Anisocytosis PRESENT Echinocytes 2+ Sodium Level 146 mmol/L Potassium Level 3.0 mmol/L Chloride Level 122 mmol/L Carbon Dioxide Level 11 mmol/L Anion Gap 13.0 mmol/L Blood Urea Nitrogen 66 mg/dl Creatinine 2.00 mg/dl Est Creatinine Clear Calc Drug Dose 30.7 ml/min Estimated GFR () 34.7 Estimated GFR (Non- 30.0 BUN/Creatinine Ratio 32.8 Random Glucose 89 mg/dl Calcium Level 8.6 mg/dl Magnesium Level 1.7 mg/dl Echo: 1. Left ventricular systolic function is low normal. 2. Ejection Fraction = 50-55%. 3. There is mild concentric left ventricular hypertrophy. 4. Significant apical hypertrophy. 5. Grade I diastolic dysfunction, (abnormal relaxation pattern). 6. Mild aortic root dilatation. EKG: Normal sinus rhythm at [address] & T wave abnormality in anterolateral leads. Telemetry reviewed: Sinus rhythm. CT Abdomen and Pelvis: 1. No evidence of bowel obstruction. No evidence of free air 2. Large bladder mass with extravesical soft tissue extension. The mass abuts small bowel loops, and direct extension most be considered. There is air within the bladder. In the absence of recent instrumentation, this could indicate a fistula with adjacent small bowel loops 3. Bilateral hydronephrosis and hydroureter 4. Distal left ureteral calculi 5. 32 mm abdominal aortic aneurysm CXR: No significant change compared to the prior study. No acute process. Assessment & Plan ASSESSMENT/PLAN: 1. Elevated Troponin: Patient has mildly elevated Troponin in the setting of anemia (hgb 8 today) and chronic renal insufficiency. It is likely the bump in his enzymes is secondary to demand ischemia. No indication cardiac catheterization or anticoagulation at this time. 2. Apical hypertrophy: Echo performed during the admission shows significant apical hypertrophy with low normal LV systolic function. It is recommended that he be on beta gloria therapy for this, however, given his relative hypotension , will not initiate at this time. Consider low dose beta gloria in the future if his blood pressure permits. 3. Pre-op evaluation: His LV systolic function was low normal by echo, and he has no evidence of CHF. He denies anginal symptoms. It is felt that the bump in his cardiac enzymes is secondary to demand ischemia from his anemia and chronic kidney disease. He would not a candidate for cardiac catheterization given his renal insufficiency. Would therefore not pursue any additional cardiovascular work-up prior to any necessary surgery. Recommend that his hemodynamics be optimized with blood transfusion prior to any surgery given his significant anemia. Thank you for allowing us to see this patient in consultation. Patient seen and discussed with Dr. Neal, and the plan was made in collaboration with him.
--- NOTE | 2016-02-18 11:26 | Urology Consultation ---
History General Date of Service: Feb 18, 2016. Primary Care Physician: Too Nguyen M.D. Pt seen a urologist before?: Yes If yes, why?: Dr. Banuelos History of Present Illness 85 year old male known admitted with generalized weakness and Cdiff He is known to our service for high grade clinical T4 bladder cancer with bilateral hydronephrosis. We are consulted for the possibility bladder fistula. CT scan shows small amount of air in the bladder along with large bladder mass, bilateral hydroureteronephrosis. He was to start chemo and radiation for his bladder cancer but has been too weak and was previously diagnosed with cdiff. Creatinine is 2.0 He does utilize CIC at home- about once daily at night and if he goes out. Imaging Imaging: CT Laboratory Last 24 Hours Test 02/17/16 12:55 02/17/16 21:07 02/18/16 06:52 Total Creatine Kinase 50 U/L 42 U/L Creatine Kinase MB 2.6 ng/ml 3.2 ng/ml Creatine Kinase MB Ratio 5.2 7.6 Troponin I 0.156 ng/ml 0.408 ng/ml White Blood Count 14.41 K/uL Red Blood Count 2.99 M/uL Hemoglobin 8.0 g/dL Hematocrit 25.1 % Mean Corpuscular Volume 83.9 fL Mean Corpuscular Hemoglobin 26.8 pg Mean Corpuscular Hemoglobin Concent 31.9 g/dl Platelet Count 264 K/uL Mean Platelet Volume 9.6 fL Neutrophils (%) (Auto) 75.9 % Lymphocytes (%) (Auto) 12.6 % Monocytes (%) (Auto) 9.8 % Eosinophils (%) (Auto) 1.0 % Basophils (%) (Auto) 0.3 % Neutrophils # (Auto) 10.92 K/uL Lymphocytes # (Auto) 1.82 K/uL Monocytes # (Auto) 1.41 K/uL Eosinophils # (Auto) 0.15 K/uL Basophils # (Auto) 0.05 K/uL RDW Standard Deviation 52.9 fL RDW Coefficient of Variation 17.1 % Immature Granulocyte % (Auto) 0.4 % Immature Granulocyte # (Auto) 0.06 K/uL Hypochromasia PRESENT Anisocytosis PRESENT Echinocytes 2+ Sodium Level 146 mmol/L Potassium Level 3.0 mmol/L Chloride Level 122 mmol/L Carbon Dioxide Level 11 mmol/L Anion Gap 13.0 mmol/L Blood Urea Nitrogen 66 mg/dl Creatinine 2.00 mg/dl Est Creatinine Clear Calc Drug Dose 30.7 ml/min Estimated GFR () 34.7 Estimated GFR (Non- 30.0 BUN/Creatinine Ratio 32.8 Random Glucose 89 mg/dl Calcium Level 8.6 mg/dl Magnesium Level 1.7 mg/dl Labs were reviewed and are within normal limits unless listed below. Labs are available in the chart and at [facility] Problem List Medical Problems: (1) Complication of catheter Status: Acute (2) Ferreira catheter problem Status: Acute (3) Weakness Status: Acute Past History BPH, cancer Past Surgical History: other (TURBT) Social History Hx Tobacco Use In Past Year?: No Marital status: Housing status: lives with family Occupation status: retired History of MDRO No Allergies Coded Allergies: No Known Allergies (Unverified , 02/16/16) Medications Home Medications: Home Meds and Scripts Medications Dose Route/Sig Max Daily Dose Days Date Category Dose Instructions Tylenol W/Codeine #3 (Acetaminophen/Codeine Phosphate) 300 Mg/30 Mg Tab 1 Tab PO Q6 PRN 02/16/16 Reported Lasix (Furosemide) 20 Mg Tab 20 Mg PO Q2D 12/28/15 Reported NOON Avodart (Dutasteride) 0.5 Mg Cap 0.5 Mg PO QAM 12/28/15 Reported Uroxatral (Alfuzosin HCl) 10 Mg Tab 10 Mg PO QPM 12/28/15 Reported Aspirin Ec (Aspirin) 81 Mg Tab 81 Mg PO QAM 04/06/15 Reported Centrum Silver Adult 50+ (Multiple Vitamins W/ Minerals) 1 Tab Tab 1 Tab PO QAM 04/06/15 Reported Levothyroxine Sodium 125 Mcg Tab 1 Tab PO QAM 90 04/06/15 Reported Inpatient Medications: Current Inpatient Medications Medications (Trade) Dose Ordered Sig/Lizbeth Route Start Time Stop Time Status Last Admin Dose Admin Miscellaneous (Iv Fluids Completed) 1 ea PRN PRN N/A 02/17/16 00:15 02/16/17 00:14 Acetaminophen (Tylenol Tab) 650 mg Q4H PRN PO 02/17/16 01:00 03/18/16 00:59 Zolpidem Tartrate (Ambien Tab) 5 mg HSZ PRN PO 02/17/16 01:00 03/18/16 00:59 Ondansetron HCl (Zofran Inj) 4 mg Q6H PRN IV 02/17/16 01:15 03/18/16 01:14 Acetaminophen/ Codeine Phosphate (Tylenol w/ Codeine #3 Tab) 1 tab Q6 PRN PO 02/17/16 01:15 03/18/16 01:14 Alfuzosin HCl (Uroxatral Tab) 10 mg QPM PO 02/17/16 21:00 03/18/16 20:59 02/17/16 19:47 10 MG Aspirin (Ecotrin Tab) 81 mg QAM PO 02/17/16 09:00 03/18/16 08:59 02/18/16 07:54 81 MG Levothyroxine Sodium (Synthroid Tab) 125 mcg DAILYBB PO 02/17/16 06:00 03/18/16 05:59 02/18/16 06:18 125 MCG Multivitamins/ Minerals (Multivitamin W/ Minerals Tab) 1 tab QAM PO 02/17/16 09:00 03/18/16 08:59 02/18/16 07:55 1 TAB Miscellaneous Information (Order Awaiting Action) 1 ea QS N/A 02/17/16 08:00 03/18/16 07:59 Metronidazole (Flagyl Tab) 500 mg BID PO 02/17/16 09:00 03/02/16 08:59 02/18/16 07:55 500 MG Pantoprazole Sodium (Protonix Tab) 40 mg QAM PO 02/17/16 09:00 03/18/16 08:59 02/18/16 07:55 40 MG Cholestyramine Resin 4 gm 4 gm BID@1000,2200 PO 02/17/16 10:00 03/18/16 09:59 02/17/16 08:22 4 GM Sodium Chloride (Nss 1000ml) 1,000 ml @ 100 mls/hr Q10H IV 02/17/16 10:30 03/18/16 10:29 02/18/16 06:18 100 MLS/HR Loperamide HCl (Imodium Cap) 2 mg UD PRN PO 02/17/16 10:30 03/18/16 10:29 02/17/16 19:46 2 MG Ferrous Sulfate (Feosol Tab) 325 mg BIDM PO 02/17/16 11:15 03/18/16 11:14 02/18/16 07:53 325 MG Enteral Nutritional Formula (Boost) 1 can BID PO 02/17/16 21:00 03/18/16 20:59 02/17/16 20:10 1 CAN Saccharomyces Boulardii 250 mg 250 mg DAILY PO 02/18/16 09:00 03/19/16 08:59 02/18/16 07:54 250 MG Ciprofloxacin/ Dextrose/Prmx (Cipro / D5w/ Premixed D5W) 200 ml @ 100 mls/hr Q12 IV 02/18/16 09:00 02/28/16 08:59 UNV Review of Systems Review of Systems Constitutional: No fever Eyes: No blurred vision Endocrine: + tired/sluggish, No excessive thirst Gastrointestinal: + diarrhea Cardiovascular: No chest pain Male : + kidney stones, + urinary retention, + weak stream Physical Exam Vital Signs: Vital Signs Past 12 Hours Date Time Temp Pulse Resp B/P Pulse Ox O2 Delivery O2 Flow Rate FiO2 02/18/16 07:56 36.9 85 18 98/59 97 02/18/16 04:10 36.8 90 20 108/62 98 Room Air 02/18/16 04:00 Room Air 02/18/16 00:30 117/62 02/18/16 00:20 36.7 94 19 71/44 95 Room Air 82/38 02/18/16 00:00 Room Air 02/17/16 23:47 36.6 80 18 95/54 96 Room Air Physical Exam: General Appearance: WD/WN, no apparent distress Eyes: bilateral eyes normal inspection ENT: hearing grossly normal Neck: no JVD Respiratory/Chest: no respiratory distress, no accessory muscle use Extremities: normal inspection Neurologic/Psychiatric: alert, normal mood/affect Skin: + pallor Assessment & Plan Assessment & Plan Imaging: CT A/P 85 yo male with clinical T4 high grade bladder cancer, bilateral hydroureteronephrosis, known to our service, now with air in bladder. Seen the patient's history of regular CIC, I would suspect this to be the most source of air in his bladder. In any case, even in the presence of a enterovesical fistula, in this patient with aggressive, locally advanced malignancy this would be of relatively low priority barring recurrent sepsis or other factors. Would try to proceed with palliative chemoradiation if possible and able to be tolerated. Poor overall prognosis from his condition. Discussed case with Dr. Greenfield. Pt utilizes clean intermittent catheterization QHS at home. Will recommend bladder scans daily and prn. Straight cath if >250 cc and unable to void. Patient may be allowed to catheterize self if needed. Creatinine improved from 2.3 on admission to 2.0 today. Thank you for allowing us to participate in this patient's care. Continue supportive care per primary service. Please recall with any further urologic questions or concerns.
--- NOTE | 2016-02-18 11:56 | History and Physical ---
History & Physical Date & Time of Service: Feb 18, 2016 at 11:46 Chief Complaint: Abnormal Ekg, Elevated Troponin I Level Primary Care Physician: Too Nguyen M.D. History of Present Illness The patient is a 85-year-old male who presents emergency department with family complaints of progressive generalized weakness over the past few days. He just completed a 10 day course of Flagyl for C. difficile colitis was diagnosed on February 03, and reports that his diarrhea has improved but is still having some loose stool. He and his family report that he's had decreased oral intake of both liquids and solids. He has a history of bladder carcinoma, following with Dr. Spicer, and has been unable to start chemotherapy and radiation due to this current illness. His weakness progressed to the point today that he fell to the ground, but reports no injuries. 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 Social History Smoking Status: Never Smoker Smokeless Tobacco Use: No Alcohol Use: none Drug Use: none Marital Status: Housing status: lives with family Occupational Status: retired Multi-Drug Resistant Organisms History of MDRO: No Allergies Coded Allergies: No Known Allergies (Unverified , 02/16/16) Home Medications Scheduled Alfuzosin Hcl (Uroxatral), 10 MG PO QPM Aspirin (Aspirin Ec), 81 MG PO QAM Dutasteride (Avodart), 0.5 MG PO QAM Furosemide (Lasix), 20 MG PO Q2D Levothyroxine Sodium (Levothyroxine Sodium), 1 TAB PO QAM Multiple Vitamins W/ Minerals (Centrum Silver Adult 50+), 1 TAB PO QAM Scheduled PRN Acetaminophen/Codeine (Tylenol W/Codeine #3), 1 TAB PO Q6 PRN for Pain Review of Systems Constitutional: No chills, No fatigue, No fever, No problem reported, No sweats , No weakness, No weight loss Eyes: No diplopia, No discharge, No eye pain, No problem reported, No redness, No worsening of vision ENT: No dental problems, No hearing loss, No nasal symptoms, No problem reported, No sore throat, No tinnitus, No trouble swallowing, No unusual epistaxis Respiratory: No cough, No dyspnea at rest, No dyspnea on exertion, No hemoptysis, No problem reported, No shortness of breath, No sputum, No wheezing Cardiovascular: No PND, No chest pain, No claudication, No edema, No orthopnea , No palpitations, No problem reported Abdomen: + diarrhea, No GI bleeding, No constipation, No nausea, No pain, No problem reported, No vomiting Musculoskeletal: No calf pain, No joint pain, No muscle pain, No problem reported, No swelling Neurologic: No balance problems, No memory loss, No numbness/tingling, No paralysis, No problem reported, No vertigo, No weakness Hematologic / Lymphatic: No abnormal bleeding/bruising, No clotting problems, No night sweats, No problem reported, No swollen lymph nodes Physical Exam Vital Signs Date Time Temp Pulse Resp B/P Pulse Ox O2 Delivery O2 Flow Rate FiO2 02/18/16 11:19 36.7 76 18 101/54 95 02/18/16 07:56 36.9 85 18 98/59 97 02/18/16 04:10 36.8 90 20 108/62 98 Room Air 02/18/16 04:00 Room Air 02/18/16 00:30 117/62 02/18/16 00:20 36.7 94 19 71/44 95 Room Air 82/38 02/18/16 00:00 Room Air 02/17/16 23:47 36.6 80 18 95/54 96 Room Air 02/17/16 20:01 Room Air 02/17/16 19:46 36.5 82 18 100/63 97 Room Air 02/17/16 16:00 Room Air 02/17/16 15:48 36.8 84 20 108/68 98 Room Air 02/17/16 12:00 Room Air General Appearance: WD/WN Head: normocephalic Eyes: normal inspection, PERRL ENT: normal ENT inspection Neck: supple, no adenopathy Respiratory/Chest: chest non-tender, lungs clear, normal breath sounds Cardiovascular: regular rate, rhythm, no edema, no gallop, no JVD Abdomen/GI: normal bowel sounds, non tender, soft, no organomegaly Neurologic/Psych: wire 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 HEENT--PERRL, EOMI, mucous membranes and oropharynx dry. Neck--supple, no JVD or bruits, thyroid normal, trachea midline, no adenopathy. Heart--normal S1 and S2, no extra beats, no murmurs, rubs or gallops. Lungs--clear bilaterally with good air movement, no respiratory distress, no accessory muscle use. Abdomen--normal bowel sounds and soft, nontender and nondistended, no hernias or masses, no organomegaly. Extremities--no cyanosis, clubbing or edema. There are good distal pulses b/l. Dermatologic--normal skin turgor, normal color, warm and dry, no abnormal lymph nodes, no rash. Neurologic--cranial nerves II through XII grossly intact. Psychiatric--normal affect. Diagnostics Laboratory Results Results Past 24 Hours Test 02/17/16 12:55 02/17/16 21:07 02/18/16 06:52 Range/Units Total Creatine Kinase 50 42 39-308 U/L Creatine Kinase MB 2.6 3.2 0.5-3.6 ng/ml Creatine Kinase MB Ratio 5.2 7.6 0-3.0 Troponin I 0.156 0.408 0-0.045 ng/ml White Blood Count 14.41 4.8-10.8 K/uL Red Blood Count 2.99 4.7-6.1 M/uL Hemoglobin 8.0 14.0-18.0 g/dL Hematocrit 25.1 42-52 % Mean Corpuscular Volume 83.9 80-100 fL Mean Corpuscular Hemoglobin 26.8 25-34 pg Mean Corpuscular Hemoglobin Concent 31.9 32-36 g/dl Platelet Count 264 130-400 K/uL Mean Platelet Volume 9.6 7.4-10.4 fL Neutrophils (%) (Auto) 75.9 % Lymphocytes (%) (Auto) 12.6 % Monocytes (%) (Auto) 9.8 % Eosinophils (%) (Auto) 1.0 % Basophils (%) (Auto) 0.3 % Neutrophils # (Auto) 10.92 1.4-6.5 K/uL Lymphocytes # (Auto) 1.82 1.2-3.4 K/uL Monocytes # (Auto) 1.41 0.11-0.59 K/uL Eosinophils # (Auto) 0.15 0-0.5 K/uL Basophils # (Auto) 0.05 0-0.2 K/uL RDW Standard Deviation 52.9 36.4-46.3 fL RDW Coefficient of Variation 17.1 11.5-14.5 % Immature Granulocyte % (Auto) 0.4 % Immature Granulocyte # (Auto) 0.06 0.00-0.02 K/uL Hypochromasia PRESENT Anisocytosis PRESENT Echinocytes 2+ Sodium Level 146 136-145 mmol/L Potassium Level 3.0 3.5-5.1 mmol/L Chloride Level 122 98-107 mmol/L Carbon Dioxide Level 11 21-32 mmol/L Anion Gap 13.0 3-11 mmol/L Blood Urea Nitrogen 66 7-18 mg/dl Creatinine 2.00 0.60-1.40 mg/dl Est Creatinine Clear Calc Drug Dose 30.7 ml/min Estimated GFR () 34.7 Estimated GFR (Non- 30.0 BUN/Creatinine Ratio 32.8 10-20 Random Glucose 89 70-99 mg/dl Calcium Level 8.6 8.5-10.1 mg/dl Magnesium Level 1.7 1.8-2.4 mg/dl Diagnostic Radiology CT scan abd + pelvis-IMPRESSION: 1. No evidence of bowel obstruction. No evidence of free air 2. Large bladder mass with extravesical soft tissue extension. The mass abuts small bowel loops, and direct extension most be considered. There is air within the bladder. In the absence of recent instrumentation, this could indicate a fistula with adjacent small bowel loops 3. Bilateral hydronephrosis and hydroureter 4. Distal left ureteral calculi 5. 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 Y/N: Yes Risk Level: Moderate Given or contraindicated: SCD's
[2016-02-18] MEDS ORDERED: POTASSIUM CHLORIDE 20 MEQ TABCR PO ONE (16:31)
--- NOTE | 2016-02-18 16:37 | Progress Note ---
Subjective Date of Service: Feb 18, 2016. Subjective pt feels slightly better and despite CT of abdomen findings is not showing any abdominal pain, diarrhea persists but is improved Problem List Medical Problems: (1) Complication of catheter Status: Acute (2) Ferreira catheter problem Status: Acute (3) Weakness Status: Acute Review of Systems Constitutional: + fatigue, + weakness, No chills, No fever Respiratory: No cough, No shortness of breath, No sputum, No wheezing Cardiac: No chest pain, No edema, No orthopnea Abdomen: + diarrhea, No nausea, No pain, No vomiting Objective Vital Signs Date Time Temp Pulse Resp B/P Pulse Ox O2 Delivery O2 Flow Rate FiO2 02/18/16 04:10 36.8 90 20 108/62 98 Room Air 02/18/16 04:00 Room Air 02/18/16 00:30 117/62 02/18/16 00:20 36.7 94 19 71/44 95 Room Air 82/38 02/18/16 00:00 Room Air 02/17/16 23:47 36.6 80 18 95/54 96 Room Air 02/17/16 20:01 Room Air 02/17/16 19:46 36.5 82 18 100/63 97 Room Air 02/17/16 16:00 Room Air 02/17/16 15:48 36.8 84 20 108/68 98 Room Air 02/17/16 12:00 Room Air 02/17/16 11:30 36.8 79 18 126/76 97 02/17/16 08:07 36.6 76 18 92/53 94 02/17/16 08:00 Room Air Physical Exam General Appearance: WD/WN, + mild distress Neck: supple, no JVD Respiratory/Chest: chest non-tender, lungs clear Cardiovascular: regular rate, rhythm, + systolic murmur Abdomen: normal bowel sounds, non tender, soft Extremities: no pedal edema, no calf tenderness Laboratory Results Last 24 Hours Test 02/17/16 12:55 02/17/16 21:07 02/18/16 06:52 Total Creatine Kinase 50 U/L 42 U/L Creatine Kinase MB 2.6 ng/ml 3.2 ng/ml Creatine Kinase MB Ratio 5.2 7.6 Troponin I 0.156 ng/ml 0.408 ng/ml White Blood Count 14.41 K/uL Red Blood Count 2.99 M/uL Hemoglobin 8.0 g/dL Hematocrit 25.1 % Mean Corpuscular Volume 83.9 fL Mean Corpuscular Hemoglobin 26.8 pg Mean Corpuscular Hemoglobin Concent 31.9 g/dl Platelet Count 264 K/uL Mean Platelet Volume 9.6 fL Neutrophils (%) (Auto) 75.9 % Lymphocytes (%) (Auto) 12.6 % Monocytes (%) (Auto) 9.8 % Eosinophils (%) (Auto) 1.0 % Basophils (%) (Auto) 0.3 % Neutrophils # (Auto) 10.92 K/uL Lymphocytes # (Auto) 1.82 K/uL Monocytes # (Auto) 1.41 K/uL Eosinophils # (Auto) 0.15 K/uL Basophils # (Auto) 0.05 K/uL RDW Standard Deviation 52.9 fL RDW Coefficient of Variation 17.1 % Immature Granulocyte % (Auto) 0.4 % Immature Granulocyte # (Auto) 0.06 K/uL Assessment and Plan 85 M with recent c diff, presents with weakness that preceeded his C diff, abnormal ECG and very mild troponin elevation. CAD, ecg change from 2016, Elevated troponin of 0.285, echocardiogram without RWMA, preserved EF. aspirin 81 mg cardiology evaluation does not feel anything more that supply demand mismatch from anemia and stress of recent illness C. difficile colitis--the patient did just patient 10 day course of Flagyl, negative repeat C diff, will start probioti, repeat CT scan has air in bladder and considers small bowel fistulae urology has seen and feels that this maybe from intermittent straight cath and his overall prognosis is poor, general surgery does not feel wurgery is required to look into possible fistulae. 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 The patient notes he has not been able to get to undergo chemotherapy or radiation therapy due to C. difficile illness. BPH--continue Uroxatral 10 mg by mouth every afternoon, and Avodart 0.5 mg by mouth every morning. Hypothyroidism continue levothyroxine sodium at 125 g by mouth every morning.
[2016-02-18] MEDS ORDERED: MAGNESIUM SULFATE 1GM / D5W 1 GM in PREMIXED IN D5W 100 ML IV ONE (17:00)
[2016-02-18] MEDS: POTASSIUM CHLORIDE INJ 40 MEQ in SODIUM CHLORIDE 0.9% 1000ML 1,000 ML IV SCH (17:25)
[2016-02-18] MEDS: ALFUZosin TAB 10 MG TAB PO SCH (20:29)
[2016-02-18] MEDS: POTASSIUM CHLORIDE 20 MEQ TABCR PO SCH (20:31)
[2016-02-19] VITALS (8 sets, daily range): BP systolic 76–137; BP diastolic 36–75; PULSE 79–111; TEMP 36.4–37.2; O2SAT 95–100
[2016-02-19] MEDS: POTASSIUM CHLORIDE INJ 40 MEQ in SODIUM CHLORIDE 0.9% 1000ML 1,000 ML IV SCH (03:39)
[2016-02-19] MEDS: LEVOTHYROXINE 125 MCG TAB PO SCH (05:33)
[2016-02-19 06:38] LABS: BASO % 0.2 %; BASO ABS # 0.03 K/uL (0-0.2); HEMATOCRIT 25.6 % (42-52); IG% 0.6 %; LYMPH % 10.9 %; LYMPH ABS # 1.64 K/uL (1.2-3.4); MEAN CELL VOLUME 83.9 fL (80-100); MEAN CORPUSCULAR HEMOGLOBIN 26.6 pg (25-34); MEAN CORPUSCULAR HGB CONC 31.6 g/dl (32-36); MEAN PLATELET VOLUME 9.7 fL (7.4-10.4); MONO % 11.1 %; NEUT % 76.2 %; PLATELET COUNT 264 K/uL (130-400); RED BLOOD COUNT 3.05 M/uL (4.7-6.1)
[2016-02-19 06:57] LABS: COMPLETE YES; ECHINOCYTES 1+
[2016-02-19] MEDS: AVODART~ORDER AWAITING ACTION SCH ×2 (08:00→16:00)
[2016-02-19] MEDS: PANTOprazole SOD 40 MG TAB PO SCH (08:09)
[2016-02-19] MEDS: LOPERAMIDE HCL 2 MG CAP PO PRN ×2 (08:09→22:12)
[2016-02-19] MEDS: CEROVITE ADV FORMULA TAB PO SCH (08:10)
[2016-02-19] MEDS: METRONIDAZOLE 500 MG TAB PO SCH ×2 (08:10→20:22)
[2016-02-19] MEDS: SACCHAROMYCES BOUL (FLORASTOR) 250 MG CAP PO SCH (08:10)
[2016-02-19] MEDS: POTASSIUM CHLORIDE 20 MEQ TABCR PO SCH ×2 (08:10→20:26)
[2016-02-19] MEDS: ASPIRIN 81 MG ECTAB PO SCH (08:11)
[2016-02-19 08:12] LABS: BUN/CREATININE RATIO 29.2 (10-20); CALCIUM 8.9 mg/dl (8.5-10.1); CREATININE 2.1 mg/dl (0.60-1.40); MAGNESIUM 1.9 mg/dl (1.8-2.4); POTASSIUM 4.1 mmol/L (3.5-5.1)
[2016-02-19] MEDS: FERROUS SULFATE 325 MG TAB PO SCH ×2 (08:15→17:49)
[2016-02-19] MEDS: CIPROFLOXACIN / D5W 400 MG in PREMIXED IN D5W 200 ML IV SCH (08:15)
[2016-02-19] MEDS ORDERED: SODIUM CHLORIDE 0.45% IV SCH (08:30)
[2016-02-19] MEDS ORDERED: POTASSIUM CHLORIDE IV SCH (08:30)
[2016-02-19] MEDS ORDERED: LACTATED RINGER'S 1000ML 1,000 ML IV SCH (08:30)
[2016-02-19] MEDS: BOOST VANILLA PO SCH ×4 (09:00→20:26)
[2016-02-19] MEDS: SODIUM BICARBONATE 8.4% INJ 100 MEQ in DEXTROSE 5% 1000ML 1,000 ML IV SCH (11:22)
[2016-02-19] MEDS: CHOLESTYRAMINE LIGHT 4 GM PKT PO SCH ×2 (11:23→22:12)
--- NOTE | 2016-02-19 11:55 | Nephrology Consultation ---
Nephrology Consultation Date & Providers Date of Consultation: Feb 19, 2016. Primary Care Provider: Too Nguyen M.D. Referring Provider: Reason for Consultation Evaluation management for metabolic acidosis, hypernatremia, acute kidney injury on CKD. History of Present Illness Mr. Rodriguez is a 85-year-old gentlemen with advanced stage 3 chronic kidney disease, bladder cancer with bilateral hydronephrosis, nephrolithiasis admitted to the hospital with progressive generalized weakness. nephrology consult was requested to manage metabolic acidosis, hypernatremia CKD. electronic medical records and the labs the imaging are reviewed in detail during patient's visit. Mr. Rodriguez has recurrent bladder cancer causing bilateral hydronephrosis and impaired renal function. He had surgery earlier in 2016 however had recurrence of the bladder cancer and recently was planning on palliative chemotherapy which could not be started yet. Was having C diff diarrhea for last more than 3 weeks and completed outpatient course of Flagyl. Three days ago he was presented to the hospital with generalized weakness with ongoing diarrhea. His appetite has been poor and having significantly decreased p.o. intake as well. Also found to have mildly elevated troponin and was evaluated by Cardiology. He self catheterizes himself. Has baseline CKD stage IIIB/4, baseline creatinine over last few months has been around 2.0-2.5. CT abdomen pelvis on admission showed persistent bilateral hydronephrosis with enlarged bladder mass, left ureteral 9 mm stone. On admission he was found to have hypokalemia, acute kidney injury and metabolic acidosis. renal function seems to have stabilized in creatinine staying around 2-2.1. Developed hypernatremia and serum sodium this morning was 150. Also has combined gap and non gap metabolic acidosis. Currently his diarrhea seems to be improving but continues to have anorexia and poor p.o. intake. Denies any shortness of breath or chest pain but generally feels weak. Allergies Coded Allergies: No Known Allergies (Unverified , 02/16/16) Inpatient Medications Current Inpatient Medications Medications (Trade) Dose Ordered Sig/Lizbeth Route Start Time Stop Time Status Last Admin Dose Admin Miscellaneous (Iv Fluids Completed) 1 ea PRN PRN N/A 02/17/16 00:15 02/16/17 00:14 Acetaminophen (Tylenol Tab) 650 mg Q4H PRN PO 02/17/16 01:00 03/18/16 00:59 Zolpidem Tartrate (Ambien Tab) 5 mg HSZ PRN PO 02/17/16 01:00 03/18/16 00:59 Ondansetron HCl (Zofran Inj) 4 mg Q6H PRN IV 02/17/16 01:15 03/18/16 01:14 Acetaminophen/ Codeine Phosphate (Tylenol w/ Codeine #3 Tab) 1 tab Q6 PRN PO 02/17/16 01:15 03/18/16 01:14 Alfuzosin HCl (Uroxatral Tab) 10 mg QPM PO 02/17/16 21:00 03/18/16 20:59 02/18/16 20:29 10 MG Aspirin (Ecotrin Tab) 81 mg QAM PO 02/17/16 09:00 03/18/16 08:59 02/19/16 08:11 81 MG Levothyroxine Sodium (Synthroid Tab) 125 mcg DAILYBB PO 02/17/16 06:00 03/18/16 05:59 02/19/16 05:33 125 MCG Multivitamins/ Minerals (Multivitamin W/ Minerals Tab) 1 tab QAM PO 02/17/16 09:00 03/18/16 08:59 02/19/16 08:10 1 TAB Miscellaneous Information (Order Awaiting Action) 1 ea QS N/A 02/17/16 08:00 03/18/16 07:59 Metronidazole (Flagyl Tab) 500 mg BID PO 02/17/16 09:00 03/02/16 08:59 02/19/16 08:10 500 MG Pantoprazole Sodium (Protonix Tab) 40 mg QAM PO 02/17/16 09:00 03/18/16 08:59 02/19/16 08:09 40 MG Cholestyramine Resin (Questran Powder Light) 4 gm BID@1000,2200 PO 02/17/16 10:00 03/18/16 09:59 02/18/16 22:36 4 GM Loperamide HCl (Imodium Cap) 2 mg UD PRN PO 02/17/16 10:30 03/18/16 10:29 02/19/16 08:09 2 MG Ferrous Sulfate (Feosol Tab) 325 mg BIDM PO 02/17/16 11:15 03/18/16 11:14 02/19/16 08:15 325 MG Enteral Nutritional Formula (Boost) 1 can BID PO 02/17/16 21:00 03/18/16 20:59 02/19/16 09:00 1 CAN Saccharomyces Rachi 250 mg 250 mg DAILY PO 02/18/16 09:00 03/19/16 08:59 02/19/16 08:10 250 MG Ciprofloxacin/ Dextrose/Prmx (Cipro / D5w/ Premixed D5W) 200 ml @ 100 mls/hr DAILY@0800 IV 02/19/16 08:00 02/28/16 07:59 02/19/16 08:15 100 MLS/HR Potassium Chloride 20 meq 20 meq BID PO 02/18/16 21:00 03/19/16 20:59 02/19/16 08:10 20 MEQ Sodium Bicarbonate/ Dextrose (Sodium Bicarbonate 8.4% Inj/D5W 1000ml) 1,100 ml @ 75 mls/hr [id number] IV 02/19/16 10:30 03/20/16 10:29 UNV Sodium Bicarbonate (Sodium Bicarbonate Tab) 650 mg BID PO 02/19/16 21:00 03/20/16 20:59 UNV Social History Smoking Status: Never Smoker Smokeless Tobacco Use: No Alcohol Use: none Drug Use: none Marital Status: Housing Status: lives with family Occupation: retired Review of Systems A complete review of systems was performed. Pertinent positives are noted above. All other systems are negative. Physical Exam Date Time Temp Pulse Resp B/P Pulse Ox O2 Delivery O2 Flow Rate FiO2 02/19/16 07:07 36.7 93 18 137/75 98 Room Air 02/19/16 04:01 Room Air 02/19/16 03:29 36.6 92 16 90/55 96 Room Air 02/19/16 00:05 36.7 111 16 92/55 95 Room Air 02/19/16 00:02 Room Air 02/18/16 20:01 Room Air 02/18/16 19:55 36.4 95 18 109/67 99 Room Air 02/18/16 16:00 Room Air 02/18/16 15:37 36.3 80 16 107/67 97 Room Air 02/18/16 12:00 Room Air 02/18/16 11:19 36.7 76 18 101/54 95 GENERAL: Elderly male, AAA x 3, pleasant, healthy-appearing, not in any distress. HEENT: Atraumatic, normocephalic. NECK: Supple, no JVD, no carotid bruit appreciated. ENT: No sinus tenderness MOUTH and THROAT: Moist oral mucosa, no oral ulcer or pharyngeal erythema RESPIRATORY: Normal breathing efforts, no accessory muscle use, clear to auscultation bilaterally, no wheezes or rales. CARDIOVASCULAR: S1, S2 normal, rate rhythm regular. ABDOMEN: Soft, nontender, positive bowel sound. MUSCULOSKELETAL: No CVA tenderness. No joint swelling, erythema or tenderness. Normal range of motion. SKIN: No skin rash EXTREMITY: No lower extremity edema NEURO: No gross focal neurological deficit, speech fluent. PSYCHIATRY: Normal mood and judgment Laboratory Results Last 24 Hours Test 02/19/16 06:30 White Blood Count 15.00 K/uL Red Blood Count 3.05 M/uL Hemoglobin 8.1 g/dL Hematocrit 25.6 % Mean Corpuscular Volume 83.9 fL Mean Corpuscular Hemoglobin 26.6 pg Mean Corpuscular Hemoglobin Concent 31.6 g/dl Platelet Count 264 K/uL Mean Platelet Volume 9.7 fL Neutrophils (%) (Auto) 76.2 % Lymphocytes (%) (Auto) 10.9 % Monocytes (%) (Auto) 11.1 % Eosinophils (%) (Auto) 1.0 % Basophils (%) (Auto) 0.2 % Neutrophils # (Auto) 11.42 K/uL Lymphocytes # (Auto) 1.64 K/uL Monocytes # (Auto) 1.67 K/uL Eosinophils # (Auto) 0.15 K/uL Basophils # (Auto) 0.03 K/uL RDW Standard Deviation 53.1 fL RDW Coefficient of Variation 17.2 % Immature Granulocyte % (Auto) 0.6 % Immature Granulocyte # (Auto) 0.09 K/uL Echinocytes 1+ Sodium Level 150 mmol/L Potassium Level 4.1 mmol/L Chloride Level 128 mmol/L Carbon Dioxide Level 9 mmol/L Anion Gap 13.0 mmol/L Blood Urea Nitrogen 61 mg/dl Creatinine 2.10 mg/dl Est Creatinine Clear Calc Drug Dose 29.3 ml/min Estimated GFR () 32.7 Estimated GFR (Non- 28.3 BUN/Creatinine Ratio 29.2 Random Glucose 101 mg/dl Calcium Level 8.9 mg/dl Magnesium Level 1.9 mg/dl Impression (1) Metabolic acidosis (2) Hypernatremia (3) Hypokalemia (4) CKD (chronic kidney disease) stage 4, GFR 15-29 ml/min (5) Nephrolithiasis (6) Bladder cancer 85-year-old gentlemen with recurrent bladder cancer causing renal impairment and bilateral hydronephrosis. Baseline creatinine has been around 2-2.5, on admission creatinine was slightly elevated from baseline which improved and currently staying around 2.1-2.2. Has been having diarrhea for last 3 weeks with poor p.o. intake. Admitted to the hospital with generalized weakness and over last few days developed hyponatremia, hypokalemia and gap and non gap metabolic acidosis which is most likely secondary to GI loss of potassium and bicarb as well as poor p.o. intake. Has been hypotensive but blood pressure seems to have improved slightly. Has free water deficit more than 1 L. Recommendations --Change IV fluid to D5 W with sodium bicarb 100 mEq in each L at a rate of 75 mL/hour --will check urinary electrolytes --Encourage po intake --Suggest protein supplement --repeat electrolyte this afternoon Thank you for allowing me to participate in your patient's care. It was a pleasure to see Mr. Rodriguez This chart was completed utilizing [employer] Speech and voice recognition software. Grammatical errors, random word insertions, pronoun errors and incomplete sentences are occasional consequences of this system. Any questions or concerns about the content, text or information contained within the body of this dictation should be addressed directly to the physician for clarification.
--- NOTE | 2016-02-19 12:38 | Progress Note ---
Subjective Date of Service: Feb 19, 2016. Subjective pt looks better still with persistent diarrhea, no weakness is improved however , tolerating po Problem List Medical Problems: (1) Complication of catheter Status: Acute (2) Ferreira catheter problem Status: Acute (3) Weakness Status: Acute Review of Systems Constitutional: No chills, No fever, No weakness Respiratory: No cough, No shortness of breath Cardiac: No chest pain, No edema Abdomen: + diarrhea, No constipation, No nausea, No pain, No vomiting Male : No dysuria, No urinary frequency Objective Vital Signs Date Time Temp Pulse Resp B/P Pulse Ox O2 Delivery O2 Flow Rate FiO2 02/19/16 07:07 36.7 93 18 137/75 98 Room Air 02/19/16 04:01 Room Air 02/19/16 03:29 36.6 92 16 90/55 96 Room Air 02/19/16 00:05 36.7 111 16 92/55 95 Room Air 02/19/16 00:02 Room Air 02/18/16 20:01 Room Air 02/18/16 19:55 36.4 95 18 109/67 99 Room Air 02/18/16 16:00 Room Air 02/18/16 15:37 36.3 80 16 107/67 97 Room Air 02/18/16 12:00 Room Air 02/18/16 11:19 36.7 76 18 101/54 95 Physical Exam General Appearance: WD/WN, + mild distress Respiratory/Chest: chest non-tender, lungs clear Cardiovascular: regular rate, rhythm, + systolic murmur Abdomen: normal bowel sounds, soft, + guarding (epigastsrium), + tenderness Extremities: no pedal edema, no calf tenderness Neurologic/Psychiatric: alert, oriented x 3 Laboratory Results Last 24 Hours Test 02/19/16 06:30 White Blood Count 15.00 K/uL Red Blood Count 3.05 M/uL Hemoglobin 8.1 g/dL Hematocrit 25.6 % Mean Corpuscular Volume 83.9 fL Mean Corpuscular Hemoglobin 26.6 pg Mean Corpuscular Hemoglobin Concent 31.6 g/dl Platelet Count 264 K/uL Mean Platelet Volume 9.7 fL Neutrophils (%) (Auto) 76.2 % Lymphocytes (%) (Auto) 10.9 % Monocytes (%) (Auto) 11.1 % Eosinophils (%) (Auto) 1.0 % Basophils (%) (Auto) 0.2 % Neutrophils # (Auto) 11.42 K/uL Lymphocytes # (Auto) 1.64 K/uL Monocytes # (Auto) 1.67 K/uL Eosinophils # (Auto) 0.15 K/uL Basophils # (Auto) 0.03 K/uL RDW Standard Deviation 53.1 fL RDW Coefficient of Variation 17.2 % Immature Granulocyte % (Auto) 0.6 % Immature Granulocyte # (Auto) 0.09 K/uL Echinocytes 1+ Sodium Level 150 mmol/L Potassium Level 4.1 mmol/L Chloride Level 128 mmol/L Carbon Dioxide Level 9 mmol/L Anion Gap 13.0 mmol/L Blood Urea Nitrogen 61 mg/dl Creatinine 2.10 mg/dl Est Creatinine Clear Calc Drug Dose 29.3 ml/min Estimated GFR () 32.7 Estimated GFR (Non- 28.3 BUN/Creatinine Ratio 29.2 Random Glucose 101 mg/dl Calcium Level 8.9 mg/dl Magnesium Level 1.9 mg/dl Assessment and Plan 85 M with recent c diff, presents with weakness that preceeded his C diff, abnormal ECG and very mild troponin elevation. CAD, ecg change from 2016, Elevated troponin of 0.285, echocardiogram without RWMA, preserved EF. aspirin 81 mg cardiology evaluation does not feel anything more that supply demand mismatch from anemia and stress of recent illness C. difficile colitis--the patient did just patient 10 day course of Flagyl, negative repeat C diff, will start probioti, repeat CT scan has air in bladder and considers small bowel fistulae urology vs resiual air from intermittent straight cath. overall prognosis is poor, general surgery does not feel surgery is required to look into possible fistulae. diarrhea has created significant hypokalemia Hyperchloremic metabolic acidosis, could be from fluid losses from diarrhea or from intrinsic renal disease, change fluids to LR, check urine sodium, consider nephrology evaluation Anemia-iron deficient will start iron this plus diarrhea makes consideration of evaluation of colon, last CT suggested colon abnormality, also has history of rectal stricture and I cannot see a colonoscopy in the chart Bladder carcinoma. The patient notes he has not been able to get to undergo chemotherapy or radiation therapy due to C. difficile illness. BPH--continue Uroxatral 10 mg by mouth every afternoon, and Avodart 0.5 mg by mouth every morning. Hypothyroidism continue levothyroxine sodium at 125 g by mouth every morning.
--- NOTE | 2016-02-19 13:06 | Progress Note ---
Subjective Date of Service: Feb 19, 2016. Subjective Pt evaluation today including: conversation w/ patient, physical exam, chart review, lab review, review of inpatient medication list Pain: Denies PO Intake: Kayce PO, poor appetite 85 yo male with a history of diarrhea, cT2+ high grade bladder cancer with bilateral hydro, notes persistent weakness and bowel issues. His previous CT scan images are reviewed - stable hydro, persistent bladder mass, air in bladder , not unlikely CIC related. He denies changes in his voiding. Problem List Medical Problems: (1) Complication of catheter Status: Acute (2) Ferreira catheter problem Status: Acute (3) Weakness Status: Acute Review of Systems Constitutional: + weakness, No fever Eyes: No worsening of vision ENT: No hearing loss Respiratory: No shortness of breath Cardiac: No chest pain Abdomen: + diarrhea Neurologic: No memory loss, No paralysis Objective Vital Signs Date Time Temp Pulse Resp B/P Pulse Ox O2 Delivery O2 Flow Rate FiO2 02/19/16 11:47 82/36 95/56 02/19/16 10:53 36.7 85 18 76/47 100 Room Air 77/53 02/19/16 07:07 36.7 93 18 137/75 98 Room Air 02/19/16 04:01 Room Air 02/19/16 03:29 36.6 92 16 90/55 96 Room Air 02/19/16 00:05 36.7 111 16 92/55 95 Room Air 02/19/16 00:02 Room Air 02/18/16 20:01 Room Air 02/18/16 19:55 36.4 95 18 109/67 99 Room Air 02/18/16 16:00 Room Air 02/18/16 15:37 36.3 80 16 107/67 97 Room Air Physical Exam General Appearance: + mild distress, + thin ENT: hearing grossly normal Neck: supple, no adenopathy Respiratory/Chest: no respiratory distress, no accessory muscle use Abdomen: soft Neurologic/Psychiatric: alert Laboratory Results Last 24 Hours Test 02/19/16 06:30 White Blood Count 15.00 K/uL Red Blood Count 3.05 M/uL Hemoglobin 8.1 g/dL Hematocrit 25.6 % Mean Corpuscular Volume 83.9 fL Mean Corpuscular Hemoglobin 26.6 pg Mean Corpuscular Hemoglobin Concent 31.6 g/dl Platelet Count 264 K/uL Mean Platelet Volume 9.7 fL Neutrophils (%) (Auto) 76.2 % Lymphocytes (%) (Auto) 10.9 % Monocytes (%) (Auto) 11.1 % Eosinophils (%) (Auto) 1.0 % Basophils (%) (Auto) 0.2 % Neutrophils # (Auto) 11.42 K/uL Lymphocytes # (Auto) 1.64 K/uL Monocytes # (Auto) 1.67 K/uL Eosinophils # (Auto) 0.15 K/uL Basophils # (Auto) 0.03 K/uL RDW Standard Deviation 53.1 fL RDW Coefficient of Variation 17.2 % Immature Granulocyte % (Auto) 0.6 % Immature Granulocyte # (Auto) 0.09 K/uL Echinocytes 1+ Sodium Level 150 mmol/L Potassium Level 4.1 mmol/L Chloride Level 128 mmol/L Carbon Dioxide Level 9 mmol/L Anion Gap 13.0 mmol/L Blood Urea Nitrogen 61 mg/dl Creatinine 2.10 mg/dl Est Creatinine Clear Calc Drug Dose 29.3 ml/min Estimated GFR () 32.7 Estimated GFR (Non- 28.3 BUN/Creatinine Ratio 29.2 Random Glucose 101 mg/dl Calcium Level 8.9 mg/dl Magnesium Level 1.9 mg/dl Assessment and Plan 85 yo male with clincally muscle invasive bladder cancer, bilateral hydro. Continue supportive care for decompensation and GI issues. Plan for bladder cancer was chemoradiation. Ideally for locally aggressive bladder cancer radical cystectomy would be considered, but the patient was felt to be unlikely to tolerate this even before his current acute difficulties. Continue CIC as needed. [place] likely due to locally advanced muscle invasion rather than retention however. Thank you for allowing us to participate in this patient's care. No acute surgical intervention.
[2016-02-19 13:31] LABS: URINE APPEARANCE TURBID (CLEAR); URINE BILIRUBIN NEG (NEG); URINE COLOR YELLOW; URINE NITRITE NEG (NEG); URINE PH 6.5 (4.5-7.5); URINE SPECIFIC GRAVITY 1.005 (1.000-1.030); UROBILINOGEN NEG (NEG); ZZUR CULT IF INDIC CLEAN CATCH NO
[2016-02-19 13:32] LABS: MANUAL MICROSCOPIC REQUIRED? YES; REVIEW REQ? NO
[2016-02-19 13:48] LABS: URINE BACTERIA 2+ (NEG); URINE RBC >30 /hpf (0-4); URINE WBC >30 /hpf (0-5)
[2016-02-19 16:45] LABS: CREATININE 2.1 mg/dl (0.60-1.40); POTASSIUM 4.2 mmol/L (3.5-5.1)
[2016-02-19] MEDS: SODIUM BICARBONATE 650 MG TAB PO SCH (20:24)
[2016-02-19] MEDS: ALFUZosin TAB 10 MG TAB PO SCH (20:24)
[2016-02-20] VITALS (8 sets, daily range): BP systolic 73–94; BP diastolic 43–57; PULSE 78–103; TEMP 36.2–36.5; O2SAT 96–100
[2016-02-20] MEDS: SODIUM BICARBONATE 8.4% INJ 100 MEQ in DEXTROSE 5% 1000ML 1,000 ML IV SCH ×2 (02:09→09:27)
[2016-02-20] MEDS: LEVOTHYROXINE 125 MCG TAB PO SCH (06:19)
[2016-02-20 07:05] LABS: BUN/CREATININE RATIO 26.5 (10-20); CALCIUM 8.9 mg/dl (8.5-10.1); CREATININE 2.2 mg/dl (0.60-1.40)
[2016-02-20] MEDS: SODIUM BICARBONATE 650 MG TAB PO SCH ×2 (07:28→21:03)
[2016-02-20] MEDS: CEROVITE ADV FORMULA TAB PO SCH (07:28)
[2016-02-20] MEDS: SACCHAROMYCES BOUL (FLORASTOR) 250 MG CAP PO SCH (07:28)
[2016-02-20] MEDS: FERROUS SULFATE 325 MG TAB PO SCH ×2 (07:29→16:09)
[2016-02-20] MEDS: ASPIRIN 81 MG ECTAB PO SCH (07:29)
[2016-02-20] MEDS: METRONIDAZOLE 500 MG TAB PO SCH (07:29)
[2016-02-20] MEDS: POTASSIUM CHLORIDE 20 MEQ TABCR PO SCH ×2 (07:29→21:03)
[2016-02-20] MEDS: CIPROFLOXACIN / D5W 400 MG in PREMIXED IN D5W 200 ML IV SCH (07:29)
[2016-02-20] MEDS: PANTOprazole SOD 40 MG TAB PO SCH (07:30)
[2016-02-20] MEDS: BOOST VANILLA PO SCH ×4 (07:36→21:04)
[2016-02-20] MEDS: AVODART~ORDER AWAITING ACTION SCH ×2 (07:37→16:00)
[2016-02-20] MEDS ORDERED: SODIUM CHLORIDE 0.9% 500ML 500 ML IV ONE (08:00)
[2016-02-20] MEDS ORDERED: NURSING VERBAL MED ORDER ONE (08:00)
[2016-02-20] MEDS: CHOLESTYRAMINE LIGHT 4 GM PKT PO SCH ×2 (10:13→22:13)
--- NOTE | 2016-02-20 10:25 | Progress Note ---
Subjective Date of Service: Feb 20, 2016. Subjective pt is pleasantly confused, is stable however despite lower blood pressure, still with intermittent diarrhea Problem List Medical Problems: (1) Complication of catheter Status: Acute (2) Ferreira catheter problem Status: Acute (3) Weakness Status: Acute Review of Systems Constitutional: + fatigue, + weakness, No chills, No fever Respiratory: + cough (non productive), No dyspnea on exertion, No shortness of breath, No sputum Cardiac: No chest pain, No edema Abdomen: + diarrhea (++), No nausea, No pain Male : No dysuria, No urinary frequency Neurologic: + balance problems, + memory loss, + weakness Psychiatric: + depression symptoms, No anhedonism Objective Vital Signs Date Time Temp Pulse Resp B/P Pulse Ox O2 Delivery O2 Flow Rate FiO2 02/20/16 09:21 88/56 02/20/16 07:20 36.2 96 24 87/56 96 Room Air 02/20/16 04:00 Room Air 02/20/16 03:50 36.5 103 18 94/57 99 Room Air 02/20/16 00:00 Room Air 02/19/16 23:54 36.4 79 18 88/50 98 Room Air 02/19/16 20:00 Room Air 02/19/16 19:37 37.2 101 22 114/57 99 Room Air 02/19/16 16:10 Room Air 02/19/16 15:33 36.9 95 20 97/61 98 Room Air 02/19/16 12:00 Room Air 02/19/16 11:47 82/36 95/56 02/19/16 10:53 36.7 85 18 76/47 100 Room Air 77/53 Physical Exam General Appearance: + mild distress, + thin Eyes: PERRL, EOMI Neck: supple, thyroid normal Respiratory/Chest: no respiratory distress, + decreased breath sounds Cardiovascular: regular rate, rhythm, + systolic murmur Abdomen: normal bowel sounds, non tender, soft Extremities: no pedal edema, no calf tenderness Neurologic/Psychiatric: alert, + disoriented Skin: normal color, warm/dry Laboratory Results Last 24 Hours Test 02/19/16 13:00 02/19/16 16:15 02/20/16 05:57 Urine Color YELLOW Urine Appearance TURBID Urine pH 6.5 Urine Specific [place] 1.005 Urine Protein 2+ Urine Glucose (UA) NEG Urine Ketones NEG Urine Occult Blood 3+ Urine Nitrite NEG Urine Bilirubin NEG Urine Urobilinogen NEG Urine Leukocyte Esterase LARGE Urine RBC >30 /hpf Urine WBC >30 /hpf Urine Epithelial Cells 20-30 /lpf Urine Bacteria 2+ Urine Random Sodium 65 mEq/L Urine Random Potassium 15.4 mEq/L Urine Random Chloride 69 mEq/L Sodium Level 149 mmol/L 149 mmol/L Potassium Level 4.2 mmol/L 4.0 mmol/L Chloride Level 127 mmol/L 125 mmol/L Carbon Dioxide Level 10 mmol/L 14 mmol/L Anion Gap 12.0 mmol/L 10.0 mmol/L Blood Urea Nitrogen 63 mg/dl 58 mg/dl Creatinine 2.10 mg/dl 2.20 mg/dl Est Creatinine Clear Calc Drug Dose 29.3 ml/min 27.9 ml/min Estimated GFR () 32.7 31.0 Estimated GFR (Non- 28.3 26.7 BUN/Creatinine Ratio 30.0 26.5 Random Glucose 111 mg/dl 113 mg/dl Calcium Level 9.0 mg/dl 8.9 mg/dl Assessment and Plan 85 M with recent c diff, presents with weakness that preceded his C diff, abnormal ECG and very mild troponin elevation. Despite treatment with bowel appropriate antibiotics, has had intermittent confusion and now lower blood pressure, has also developed hyperchloremic gap/non gap acidosis Pt has has poor progress and 02/19 has lower blood pressure, discussed with over phone, agrees to make DNR but request to continue treatment, I attempted to reach son, no answer, will have additional fluid bolus and check ABG for concern for a systemic issue such as sepsis, no focal changes to consider stroke and CXR no infiltrate, will change antibiotics to vanco and zosyn given and possible bowel issue, recheck c diff, urine culture is pending. Out look is poor at this point Diarrhea--the patient did just patient 10 day course of Flagyl, negative repeat C diff, will start probiotic, repeat CT scan has air in bladder and considers small bowel fistulae urology vs residual air from intermittent straight cath. overall prognosis is poor, general surgery does not feel surgery is required to look into possible fistulae. diarrhea has created significant hypokalemia. Urology feels maybe from bladder tumor enlarging and influencing sigmoid colon and emptying, repeat C Diff 02/19 Hyperchloremic metabolic acidosis, could be from fluid losses from diarrhea or from intrinsic renal disease, nephrology evaluation has started bicard gtt hypotension, gave fluid bolus will check Lactic acid but suspect will be influenced by bicarb gtt, unless is high then additional concern for sepsis, try steroids for one day Bladder carcinoma. The patient notes he has not been able to get to undergo chemotherapy or radiation therapy due to C. difficile illness. Urology feels very poor prognosis, I spoke to family at bedside 02/19 and suggested palliative care consult, they are willing to discuss this week, will attempt to retrieve living will from home BPH--continue Uroxatral 10 mg by mouth every afternoon, and Avodart 0.5 mg by mouth every morning. CAD, ecg change from 2016, Elevated troponin of 0.285, echocardiogram without RWMA, preserved EF. aspirin 81 mg cardiology evaluation does not feel anything more that supply demand mismatch from anemia and stress of recent illness Anemia-iron deficient will start iron this plus diarrhea makes consideration of evaluation of colon, last CT suggested colon abnormality, also has history of rectal stricture and I cannot see a colonoscopy in the chart Hypothyroidism continue levothyroxine sodium at 125 g by mouth every morning.
[2016-02-20] MEDS ORDERED: DEXTROSE 5% 1000ML 1,000 ML IV SCH (11:00)
[2016-02-20] MEDS: HYDROCORTISONE IV 50 MG in SYRINGE 0 ML IV SCH ×2 (11:42→19:47)
[2016-02-20] MEDS ORDERED: SODIUM CHLORIDE 0.9% 1000ML 1,000 ML IV SCH (12:15)
[2016-02-20] MEDS ORDERED: CONSULT PHARMACY PRN (12:22)
--- NOTE | 2016-02-20 12:25 | Nephrology Progress Note ---
Nephrology Progress Note Date of Service Feb 20, 2016. Chief Complaint F/U for metabolic acidosis, hypernatremia, acute kidney injury on CKD. Subjective Mr. Rodriguez was seen and examined this morning. Diarrhea resolved, po intake continues to be poor. His BP has been low, and has been very lathergic and minimally responsive since last night and seems to be worsening. Review of Systems A complete review of systems was performed. Pertinent positives are noted above. All other systems are negative. Vital Signs Last 8 Hrs Date Time Temp Pulse Resp B/P Pulse Ox O2 Delivery O2 Flow Rate FiO2 02/20/16 09:21 88/56 02/20/16 07:20 36.2 96 24 87/56 96 Room Air 02/20/16 04:00 Room Air 02/20/16 03:50 36.5 103 18 94/57 99 Room Air I & O 24-Hour Column 02/20/16 08:00 Intake Total 2319 ml Output Total 450 ml Balance 1869 ml Last Recorded Weight Weight (Kilograms): 88.900 Physical Exam GENERAL: Elderly male, arousable but lethergic and minimally responsive, chronically ill-appearing. NECK: Supple, no JVD. RESPIRATORY: clear to auscultation bilaterally, no wheezes or rales. CARDIOVASCULAR: S1, S2 normal, rate rhythm regular. EXTREMITY: No lower extremity edema Social History Smokeless Tobacco Use: No Alcohol Use: none Drug Use: none Marital Status: Housing Status: lives with family Occupation: retired Laboratory Results Past 24 Hours 02/19/16 16:15 02/20/16 05:57 Test 02/19/16 13:00 02/19/16 16:15 02/20/16 05:57 Urine Color YELLOW Urine Appearance TURBID (CLEAR) Urine pH 6.5 (4.5-7.5) Urine Specific [place] 1.005 (1.000-1.030) Urine Protein 2+ (NEG) Urine Glucose (UA) NEG (NEG) Urine Ketones NEG (NEG) Urine Occult Blood 3+ (NEG) Urine Nitrite NEG (NEG) Urine Bilirubin NEG (NEG) Urine Urobilinogen NEG (NEG) Urine Leukocyte Esterase LARGE (NEG) Urine RBC >30 /hpf (0-4) Urine WBC >30 /hpf (0-5) Urine Epithelial Cells 20-30 /lpf (0-5) Urine Bacteria 2+ (NEG) Urine Random Sodium 65 mEq/L Urine Random Potassium 15.4 mEq/L Urine Random Chloride 69 mEq/L Anion Gap 12.0 mmol/L (3-11) 10.0 mmol/L (3-11) Est Creatinine Clear Calc Drug Dose 29.3 ml/min 27.9 ml/min Estimated GFR () 32.7 31.0 Estimated GFR (Non- 28.3 26.7 BUN/Creatinine Ratio 30.0 (10-20) 26.5 (10-20) Calcium Level 9.0 mg/dl (8.5-10.1) 8.9 mg/dl (8.5-10.1) Allergies Coded Allergies: No Known Allergies (Unverified , 02/16/16) Medications Current Inpatient Medications Medications (Trade) Dose Ordered Sig/[place] Route Start Time Stop Time Status Last Admin Dose Admin Miscellaneous (Iv Fluids Completed) 1 ea PRN PRN N/A 02/17/16 00:15 02/16/17 00:14 Acetaminophen (Tylenol Tab) 650 mg Q4H PRN PO 02/17/16 01:00 03/18/16 00:59 Zolpidem Tartrate (Ambien Tab) 5 mg HSZ PRN PO 02/17/16 01:00 03/18/16 00:59 Ondansetron HCl (Zofran Inj) 4 mg Q6H PRN IV 02/17/16 01:15 03/18/16 01:14 Acetaminophen/ Codeine Phosphate (Tylenol w/ Codeine #3 Tab) 1 tab Q6 PRN PO 02/17/16 01:15 03/18/16 01:14 Alfuzosin HCl (Uroxatral Tab) 10 mg QPM PO 02/17/16 21:00 03/18/16 20:59 02/19/16 20:24 10 MG Aspirin (Ecotrin Tab) 81 mg QAM PO 02/17/16 09:00 03/18/16 08:59 02/20/16 07:29 81 MG Levothyroxine Sodium (Synthroid Tab) 125 mcg DAILYBB PO 02/17/16 06:00 03/18/16 05:59 02/20/16 06:19 125 MCG Multivitamins/ Minerals (Multivitamin W/ Minerals Tab) 1 tab QAM PO 02/17/16 09:00 03/18/16 08:59 02/20/16 07:28 1 TAB Miscellaneous Information (Order Awaiting Action) 1 ea QS N/A 02/17/16 08:00 03/18/16 07:59 Metronidazole (Flagyl Tab) 500 mg BID PO 02/17/16 09:00 03/02/16 08:59 02/20/16 07:29 500 MG Pantoprazole Sodium (Protonix Tab) 40 mg QAM PO 02/17/16 09:00 03/18/16 08:59 02/20/16 07:30 40 MG Cholestyramine Resin (Questran Powder Light) 4 gm BID@1000,2200 PO 02/17/16 10:00 03/18/16 09:59 02/20/16 10:13 4 GM Loperamide HCl (Imodium Cap) 2 mg UD PRN PO 02/17/16 10:30 03/18/16 10:29 02/19/16 22:12 2 MG Ferrous Sulfate (Feosol Tab) 325 mg BIDM PO 02/17/16 11:15 03/18/16 11:14 02/20/16 07:29 325 MG Enteral Nutritional Formula (Boost) 1 can BID PO 02/17/16 21:00 03/18/16 20:59 02/20/16 07:36 1 CAN Saccharomyces Boulardii 250 mg 250 mg DAILY PO 02/18/16 09:00 03/19/16 08:59 02/20/16 07:28 250 MG Ciprofloxacin/ Dextrose/Prmx (Cipro / D5w/ Premixed D5W) 200 ml @ 100 mls/hr DAILY@0800 IV 02/19/16 08:00 02/28/16 07:59 02/20/16 07:29 100 MLS/HR Potassium Chloride 20 meq 20 meq BID PO 02/18/16 21:00 03/19/16 20:59 02/20/16 07:29 20 MEQ Sodium Bicarbonate/ Dextrose (Sodium Bicarbonate 8.4% Inj/D5W 1000ml) 1,100 ml @ 100 mls/hr Q11H IV 02/19/16 10:45 03/20/16 10:44 02/20/16 09:27 100 MLS/HR Sodium Bicarbonate 650 mg 650 mg BID PO 02/19/16 21:00 03/20/16 20:59 02/20/16 07:28 650 MG Hydrocortisone Sodium Succinate/ Syringe (Solu-Cortef IV/ Syringe) 1 ml @ 4 mls/min Q8H IV 02/20/16 11:00 02/21/16 03:01 Impression (1) Metabolic acidosis (2) Hypernatremia (3) Hypokalemia (4) CKD (chronic kidney disease) stage 4, GFR 15-29 ml/min (5) Nephrolithiasis (6) Bladder cancer 85-year-old gentlemen with recurrent bladder cancer causing renal impairment with bilateral hydronephrosis. Baseline creatinine has been around 2-2.5, on admission creatinine was slightly elevated from baseline which improved and currently staying around 2.1-2.2. Has been having diarrhea for last 3 weeks with poor p.o. intake. Admitted to the hospital with generalized weakness and over last few days developed hypernatremia, hypokalemia and gap and non gap metabolic acidosis which is most likely secondary to GI loss of potassium and bicarb as well as poor p.o. intake. Has been hypotensive. Recommendations --BP has been running low and became less responsive overnight, unclear etiology for persistent hypotension, ? sepsis. UA with gram N angelo, currently on cipro. electrolyte slightly improved. --may need broader coverage with antibiotic --continue on D5W @ 100 mL/hour --repeat electrolyte in afternoon --overall prognosis seems to be very poor with underlying bladder ca. Suggest discussion with family about prognosis and consider changing to DNR. Will follow
--- NOTE | 2016-02-20 12:35 | DIAGNOSTIC IMAGING REPORT ---
SINGLE VIEW CHEST CLINICAL HISTORY: Generalized weakness. FINDINGS: An AP, portable, upright chest radiograph is compared to study dated 02/16/2016. The examination is significantly degraded by portable technique and patient rotation. The heart is enlarged and there is atherosclerotic calcification of the thoracic aorta. There is pulmonary vascular congestion. Chronic elevation of the right hemidiaphragm is similar to previous. There is bibasilar atelectasis. No large pleural effusion or pneumothorax is seen. The skeletal structures are osteopenic. The bony thorax is grossly intact. Cholecystectomy clips are identified in the right upper quadrant. IMPRESSION: 1. Cardiomegaly with evidence of congestive failure. This is new from 02/16/2016. 2. No airspace consolidation is seen typical for pneumonia and there is no large pleural effusion. Electronically signed by: Nathan Blanton M.D. 02/20/2016 12:33 PM Dictated Date/Time: 02/20/2016 12:32 PM
[2016-02-20] MEDS ORDERED: PIPERACILL/TAZOBAC IV 3.375 GM in DEXTROSE 5% 100ML IV ONE (12:45)
[2016-02-20] MEDS ORDERED: PIPERACILL/TAZOBAC CONSULT ACTIVE PRN (12:45)
[2016-02-20] MEDS ORDERED: VANCOMYCIN INJ 1,800 MG in SODIUM CHLORIDE 0.9% 500ML 500 ML IV ONE (13:00)
[2016-02-20] MEDS ORDERED: VANCOMYCIN CONSULT ACTIVE PRN (13:00)
--- NOTE | 2016-02-20 13:05 | Pharmacy Progress Note ---
Pharmacy Antibiotic Consult Date of Service: Feb 20, 2016. Pharmacy Dosing Scope Pharmacy is consulted to initiate vancomycin IV and piip/tazo IV dosing therapy , order appropriate labs and adjust drug dose/frequency. Subjective The patient is a 85 year old male admitted on Feb 18, 2016 at 09:55. Objective Height (Feet): 6 Height (Inches): 0.00 Weight (Kilograms): 88.900 Lab Results (24hrs): Laboratory Tests Test 02/19/16 16:15 02/20/16 05:57 BUN/Creatinine Ratio 30.0 26.5 Blood Urea Nitrogen 63 mg/dl 58 mg/dl Creatinine 2.10 mg/dl 2.20 mg/dl Micro Results: Item Value Date Time Shiga Toxin Test - Final Complete 02/17/16 0535 Stool No E. Coli shiga toxin 1 or shiga tox... C.difficile Toxin B Gene (PCR) - Final Complete 02/17/16 0535 Stool No C. difficile toxin B gene detected Urine Culture - Preliminary Resulted 02/19/16 1300 Urine , Clean Catch Gram Negative Bacilli Assessment & Plan ASSESSMENT: * Patient is an 85 year-old male admitted with a GI infection, recent C.diff, and Gram-negative bacilli growing in the urine. * Patient has CKD with baseline SCr of 2-2.5mg/dl. * Patient also has bladder cancer. * Patient had failed flagyl po and cipro IV therapy for his abdominal infection. * Pharmacy was consulted to dose the vancomycin IV and pip/tazo IV therapies. * Goal trough of 15-20mcg/ml. * Calculated half-life of ~25mcg/ml. PLAN: VANCOMYCIN: * Gave a loading dose of 1800mg IV x 1 dose (~20mg/kg). * Will get a random level in the morning. Based on that level and on renal function, will make a maintenance dose. PIP/TAZO: * Gave patient a loading dose of 3.375g IV x 1 dose of pip/tazo. * Made the maintenance dosing to be 3.375g IV q8h for extended infusion dosing due to CrCl>20ml/min. Pharmacy will continue to follow and will adjust dose/frequency as necessary. Thank you
[2016-02-20 13:18] LABS: ARTERIAL BLD GAS O2 SATURATION 96.4 % (90-95); ARTERIAL BLOOD GAS BASE EXCESS -14.2 mEq/L (-9-1.8); ARTERIAL BLOOD GAS HCO3 11 mmol/L (19-24); ARTERIAL BLOOD GAS PO2 98 mm/Hg (80-95); ARTERIAL BLOOD GAS pH 7.32 (7.35-7.45); O2 ADMINISTRATION ROOM AIR
[2016-02-20 13:19] LABS: ALLEN TEST POS (POS)
[2016-02-20 15:09] LABS: BUN/CREATININE RATIO 32.8 (10-20); CALCIUM 5.1 mg/dl (8.5-10.1); CREATININE 1.2 mg/dl (0.60-1.40); POTASSIUM 2.6 mmol/L (3.5-5.1)
[2016-02-20] MEDS ORDERED: CALCIUM GLUCONATE 10% 1,000 MG in SODIUM CHLORIDE 0.9% 50ML 50 ML IV ONE (16:30)
[2016-02-20] MEDS: POTASSIUM CHLR 10 MEQ / WTR 10 MEQ in PREMIXED WATER 100 ML IV SCH ×3 (16:48→20:20)
[2016-02-20] MEDS ORDERED: DEXTROSE 5% IV SCH (17:00)
[2016-02-20] MEDS ORDERED: POTASSIUM CHLORIDE IV SCH (17:00)
[2016-02-20] MEDS ORDERED: IMIPENEM-CILASTATIN 500 MG in DEXTROSE 5% 100ML 100 ML IV ONE (17:30)
[2016-02-20] MEDS ORDERED: MoRPHine SULFATE 2 MG/ML CARP IV PRN (17:45)
[2016-02-20] MEDS ORDERED: LORAZEPAM 2 MG/ML 1 ML VIAL IV PRN ×2 (17:45)
[2016-02-20] MEDS ORDERED: MoRPHine SULFATE 4 MG/ML 1 ML CARP\\VIAL IV PRN (17:45)
[2016-02-20] MEDS ORDERED: LORAZEPAM INJ 1 MG in SYRINGE 0.5 ML IV PRN (18:00)
[2016-02-20] MEDS ORDERED: LORAZEPAM INJ 0.5 MG in SYRINGE 0.75 ML IV PRN (18:00)
[2016-02-20] MEDS: PIPERACILL/TAZOBAC IV 3.375 GM in DEXTROSE 5% 100ML 100 ML IV SCH (19:48)
[2016-02-20] MEDS: ALFUZosin TAB 10 MG TAB PO SCH (21:03)
[2016-02-20 21:18] LABS: BUN/CREATININE RATIO 26.6 (10-20)
[2016-02-20 21:19] LABS: CALCIUM 8.8 mg/dl (8.5-10.1); CREATININE 2.1 mg/dl (0.60-1.40); POTASSIUM 4.9 mmol/L (3.5-5.1)
[2016-02-20] MEDS: SODIUM BICARBONATE IV SCH (22:58)
[2016-02-20] MEDS: DEXTROSE 5% IV SCH (22:58)
[2016-02-21] VITALS (7 sets, daily range): BP systolic 86–104; BP diastolic 52–67; PULSE 69–80; TEMP 36–36.8; O2SAT 98–100
[2016-02-21] MEDS: HYDROCORTISONE IV 50 MG in SYRINGE 0 ML IV SCH (04:15)
[2016-02-21] MEDS: PIPERACILL/TAZOBAC IV 3.375 GM in DEXTROSE 5% 100ML 100 ML IV SCH ×3 (04:15→21:02)
[2016-02-21] MEDS: LEVOTHYROXINE 125 MCG TAB PO SCH (05:46)
[2016-02-21 07:25] LABS: BUN/CREATININE RATIO 26.8 (10-20); CALCIUM 8.7 mg/dl (8.5-10.1); CREATININE 2.1 mg/dl (0.60-1.40); POTASSIUM 4.9 mmol/L (3.5-5.1)
[2016-02-21] MEDS: AVODART~ORDER AWAITING ACTION SCH ×3 (08:00→16:00)
[2016-02-21] MEDS ORDERED: IMIPENEM-CILASTATIN 250 MG in DEXTROSE 5% 100ML 100 ML IV SCH ×3 (08:30)
[2016-02-21] MEDS: DEXTROSE 5% IV SCH (09:12)
[2016-02-21] MEDS: SODIUM BICARBONATE IV SCH (09:12)
[2016-02-21] MEDS: SODIUM BICARBONATE 650 MG TAB PO SCH ×2 (09:13→21:03)
[2016-02-21] MEDS: PANTOprazole SOD 40 MG TAB PO SCH (09:13)
[2016-02-21] MEDS: POTASSIUM CHLORIDE 20 MEQ TABCR PO SCH (09:13)
[2016-02-21] MEDS: FERROUS SULFATE 325 MG TAB PO SCH ×2 (09:13→17:56)
[2016-02-21] MEDS: SACCHAROMYCES BOUL (FLORASTOR) 250 MG CAP PO SCH (09:13)
[2016-02-21] MEDS: ASPIRIN 81 MG ECTAB PO SCH (09:13)
[2016-02-21] MEDS: CEROVITE ADV FORMULA TAB PO SCH (09:15)
[2016-02-21] MEDS: BOOST VANILLA PO SCH ×4 (09:20→21:04)
[2016-02-21] MEDS: CHOLESTYRAMINE LIGHT 4 GM PKT PO SCH ×2 (10:30→21:04)
--- NOTE | 2016-02-21 10:36 | Nephrology Progress Note ---
Nephrology Progress Note Date of Service Feb 21, 2016. Chief Complaint CKD, LEE ANN, multiple electrolyte abnormalities Subjective Mr. Rodriguez was seen and examined in his hospital room this morning. He remains very lethargic. Appetite poor. Strength slowly improving. He was slightly confused this morning and did not remember any events from the weekend. He denied any voiding complaints. He denies shortness of breath. No fevers or chills. Review of Systems A complete review of systems was performed. Pertinent positives are noted above. All other systems are negative. Vital Signs Last 8 Hrs Date Time Temp Pulse Resp B/P Pulse Ox O2 Delivery O2 Flow Rate FiO2 02/21/16 07:55 36.8 69 20 90/53 100 Nasal Cannula 2.0 02/21/16 04:00 Nasal Cannula 3.0 02/21/16 02:55 36.6 78 18 90/52 100 Nasal Cannula 2.0 I & O 24-Hour Column 02/21/16 08:00 Intake Total 4527 ml Output Total 50 ml Balance 4477 ml Last Recorded Weight Weight (Kilograms): 96.500 Physical Exam General Appearance: no apparent distress, + thin Head: normocephalic, atraumatic Eyes: normal inspection, sclerae normal ENT: normal ENT inspection, pharynx normal Neck: supple, no JVD Respiratory/Chest: lungs clear, no respiratory distress, no accessory muscle use Cardiovascular: regular rate, rhythm, no gallop Abdomen/GI: non tender, soft Extremities/Musculoskelatal: normal inspection, + pedal edema Neurologic/Psych: alert, normal mood/affect Social History Smokeless Tobacco Use: No Alcohol Use: none Drug Use: none Marital Status: Housing Status: lives with family Occupation: retired Laboratory Results Past 24 Hours 02/20/16 14:15 02/20/16 20:14 02/21/16 06:28 Test 02/20/16 13:00 02/20/16 14:15 02/20/16 20:14 02/21/16 06:28 Arterial Blood pH 7.32 (7.35-7.45) Arterial Blood Partial Pressure CO2 21 mmHg (35-46) Arterial Blood Partial Pressure O2 98 mm/Hg (80-95) Arterial Blood HCO3 11 mmol/L (19-24) Arterial Blood Oxygen Saturation 96.4 % (90-95) Arterial Blood Base Excess -14.2 mEq/L (-9-1.8) Arterial Blood Gas Delivery ROOM AIR Juan Carlos Test POS (POS) Lactic Acid Level 1.8 mmol/L (0.4-2.0) Anion Gap 15.0 mmol/L (3-11) 12.0 mmol/L (3-11) 11.0 mmol/L (3-11) Est Creatinine Clear Calc Drug Dose 51.2 ml/min 29.3 ml/min 32.1 ml/min Estimated GFR () 64.4 32.7 32.7 Estimated GFR (Non- 55.6 28.3 28.3 BUN/Creatinine Ratio 32.8 (10-20) 26.6 (10-20) 26.8 (10-20) Calcium Level 5.1 mg/dl (8.5-10.1) 8.8 mg/dl (8.5-10.1) 8.7 mg/dl (8.5-10.1) Ionized Calcium 1.37 mmol/l (1.12-1.32) Phosphorus Level 3.0 mg/dl (2.5-4.9) Albumin 1.9 gm/dl (3.4-5.0) Allergies Coded Allergies: No Known Allergies (Unverified , 02/16/16) Medications Current Inpatient Medications Medications (Trade) Dose Ordered Sig/Lizbeth Route Start Time Stop Time Status Last Admin Dose Admin Miscellaneous (Iv Fluids Completed) 1 ea PRN PRN N/A 02/17/16 00:15 02/16/17 00:14 Acetaminophen (Tylenol Tab) 650 mg Q4H PRN PO 02/17/16 01:00 03/18/16 00:59 Zolpidem Tartrate (Ambien Tab) 5 mg HSZ PRN PO 02/17/16 01:00 03/18/16 00:59 Ondansetron HCl (Zofran Inj) 4 mg Q6H PRN IV 02/17/16 01:15 03/18/16 01:14 Acetaminophen/ Codeine Phosphate (Tylenol w/ Codeine #3 Tab) 1 tab Q6 PRN PO 02/17/16 01:15 03/18/16 01:14 Alfuzosin HCl (Uroxatral Tab) 10 mg QPM PO 02/17/16 21:00 03/18/16 20:59 02/20/16 21:03 10 MG Aspirin (Ecotrin Tab) 81 mg QAM PO 02/17/16 09:00 03/18/16 08:59 02/21/16 09:13 81 MG Levothyroxine Sodium (Synthroid Tab) 125 mcg DAILYBB PO 02/17/16 06:00 03/18/16 05:59 02/21/16 05:46 125 MCG Multivitamins/ Minerals (Multivitamin W/ Minerals Tab) 1 tab QAM PO 02/17/16 09:00 03/18/16 08:59 02/21/16 09:15 1 TAB Miscellaneous Information (Order Awaiting Action) 1 ea QS N/A 02/17/16 08:00 03/18/16 07:59 Pantoprazole Sodium (Protonix Tab) 40 mg QAM PO 02/17/16 09:00 03/18/16 08:59 02/21/16 09:13 40 MG Cholestyramine Resin (Questran Powder Light) 4 gm BID@1000,2200 PO 02/17/16 10:00 03/18/16 09:59 02/20/16 22:13 4 GM Loperamide HCl (Imodium Cap) 2 mg UD PRN PO 02/17/16 10:30 03/18/16 10:29 02/19/16 22:12 2 MG Ferrous Sulfate (Feosol Tab) 325 mg BIDM PO 02/17/16 11:15 03/18/16 11:14 02/21/16 09:13 325 MG Enteral Nutritional Formula (Boost) 1 can BID PO 02/17/16 21:00 03/18/16 20:59 02/21/16 09:20 1 CAN Saccharomyces Boulardii (Florastor Cap) 250 mg DAILY PO 02/18/16 09:00 03/19/16 08:59 02/21/16 09:13 250 MG Potassium Chloride (Klor-Con Tab) 20 meq BID PO 02/18/16 21:00 03/19/16 20:59 02/21/16 09:13 20 MEQ Sodium Bicarbonate 650 mg 650 mg BID PO 02/19/16 21:00 03/20/16 20:59 02/21/16 09:13 650 MG Piperacillin Sod/ Tazobactam Sod/ Dextrose (Zosyn Iv/D5 100ml) 115 ml @ 28.75 mls/ hr Q8H IV 02/20/16 18:00 03/01/16 17:59 02/21/16 04:15 28.75 MLS/HR Piperacillin Sod/ Tazobactam Sod (Consult) 1 ea UD PRN N/A 02/20/16 12:45 03/21/16 12:44 Morphine Sulfate (MoRPHine SULFATE INJ) 4 mg Q4H PRN IV 02/20/16 17:45 03/05/16 17:44 Morphine Sulfate (MoRPHine SULFATE INJ) 2 mg Q4H PRN IV 02/20/16 17:45 03/05/16 17:44 Lorazepam (Ativan Inj) 0.5 mg Q4H PRN IV 02/20/16 17:45 03/21/16 17:44 Lorazepam 1 mg 1 mg Q4H PRN IV 02/20/16 17:45 03/21/16 17:44 Lorazepam 1 mg/ Syringe 1 ml @ 1 mls/min Q4H PRN IV 02/20/16 18:00 03/21/16 17:59 Lorazepam 0.5 mg/ Syringe 1 ml @ 1 mls/min Q4H PRN IV 02/20/16 18:00 03/21/16 17:59 Sodium Bicarbonate 50 meq/Dextrose 1,050 ml @ 100 mls/hr [id number] IV 02/20/16 22:30 03/21/16 22:29 02/21/16 09:12 100 MLS/HR Imipenem/ Cilastatin Sodium/ Dextrose (Primaxin Iv/D5 100ml) 110 ml @ 100 mls/hr Q6H IV 02/21/16 08:30 03/01/16 17:59 02/21/16 09:12 100 MLS/HR Impression (1) Metabolic acidosis (2) Hypernatremia (3) Hypokalemia (4) CKD (chronic kidney disease) stage 4, GFR 15-29 ml/min (5) Nephrolithiasis (6) Bladder cancer 85-year-old gentlemen with recurrent bladder cancer causing renal impairment with bilateral hydronephrosis. Baseline creatinine has been around 2-2.5, on admission creatinine was slightly elevated from baseline which improved and currently staying around 2.1-2.2. Has been having diarrhea for last 3 weeks with poor p.o. intake. Admitted to the hospital with generalized weakness and over last few days developed hypernatremia, hypokalemia and gap and non gap metabolic acidosis which is most likely secondary to GI loss of potassium and bicarb as well as poor p.o. intake. Has been hypotensive. Blood pressure and volume status improving. Mr. Rodriguez remains very lethargic with decreased oral intake. Mr. Rodriguez has made it clear that dialysis will not be considered in the treatment plan. He had previously communicated this during outpatient visits and stated his goals of care again today. Given multiple comorbidities, dialysis is unlikely to provide significant improvement in outcomes. We will continue bicarbonate replacement and close monitoring of electrolytes. PCN nephrostomy deferred following risk/benefit discussion. Recommendations -- Continue D5W + NaHCO3 @ 1000 -- Continue oral HCO3 replacement -- KCl discontinued this morning -- Repeat renal profile this afternoon
--- NOTE | 2016-02-21 11:53 | Clinical Documentation Query ---
ALEXIS Marie : CLINICAL DOCUMENTATION QUERY Patient is an 85 year old female admitted with high grade bladder cancer, bilateral hydronephrosis. 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 Subsequently, patient has become less responsive, hypotensive and found to have a gram negative UTI and per nursing, urine on catheterization "resembles stool". Treatment continues at this time with IVF, IV antibiotics, urologic and nephrologic consultation. As appropriate, consider clarification as suggested below to capture severity of illness and risk of mortality. 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 Clinical Indicators: As above. Metabolic acidosis, gram negative UTI. Question of enterovesical fistula. Treatment: IVF, IV antibiotics, family refusing pressor agents. Risk Factors: High grade bladder cancer Please clarify and document your clinical opinion in the progress notes and discharge summary. Terms such as "probable", "suspected", "likely", "questionable", "possible", or "still to be ruled out" are acceptable. IF IN AGREEMENT, YOU MUST DOCUMENT ABOVE DIAGNOSTIC STATEMENT IN DAILY PROGRESS NOTES AND DISCHARGE SUMMARY. This document is not part of the patient's record. Thank You, Biju Cartagena, ALAN [phone]
--- NOTE | 2016-02-21 13:50 | DIAGNOSTIC IMAGING REPORT ---
CHEST ONE VIEW PORTABLE CLINICAL HISTORY: Worsening shortness of breath COMPARISON STUDY: 02/20/2016 FINDINGS: The heart is enlarged. There are low lung volumes. There is elevation of the interstitium consistent with underlying congestive failure/fluid overload. There is no lobar consolidation. There is gaseous prominence the visualized bowel.[ IMPRESSION: Elevation of the interstitium consistent with worsening congestive failure/fluid overload. Electronically signed by: Jean Bonds M.D. 02/21/2016 1:48 PM Dictated Date/Time: 02/21/2016 1:47 PM
[2016-02-21 14:43] LABS: BUN/CREATININE RATIO 26.3 (10-20); CALCIUM 8.9 mg/dl (8.5-10.1); CREATININE 2.2 mg/dl (0.60-1.40); POTASSIUM 4.8 mmol/L (3.5-5.1)
--- NOTE | 2016-02-21 16:26 | Progress Note ---
Subjective Date of Service: Feb 21, 2016. (Ade Ramos, HENRYC) Subjective Pt evaluation today including: conversation w/ patient, physical exam, chart review, lab review, review of studies, review of inpatient medication list Patient seen and evaluated. No acute events overnight. Remains hypotensive and lethargic. Opens eyes to verbal stimuli and reports "I am just tired" Mostly kept eyes closed during exam but would answer questions appropriately. At time of exam but without BM this AM and patient states "too early to tell" when asked how he was feeling. He does deny pain or difficulty breathing. Reports fatigue and nonproductive cough. Full ROS limited given patient lethargic. Met with son and at bedside and discussed current plan and discussed implementing palliative care. Patient and family members are realistic of overall prognosis but would like to continue current treatment to establish his "new baseline" but emphasize overall comfort. They report a living will at home which they plan to obtain and bring in tomorrow. Discussed palliative services and benefits of establishing goals of care and future planning. does not feel that patient will be able to return home as they live in a townhouse and his bedroom is not easily accessible. Did mention the topic of hospice that can be discussed and my impression is they still want to continue an element of treatment but make the patient comfortable. I did asked the family to place the palliative consult and they are in agreement. (Ade Ramos, DEBI-C) Problem List Medical Problems: (1) Complication of catheter Status: Acute (2) Ferreira catheter problem Status: Acute (3) Weakness Status: Acute (Ade Ramos, HENRYC) Review of Systems Deferred due to lethargy. See HPI (Ade Ramos, HENRYC) Medications Current Inpatient Medications Medications (Trade) Dose Ordered Sig/Lizbeth Route Start Time Stop Time Status Last Admin Dose Admin Miscellaneous (Iv Fluids Completed) 1 ea PRN PRN N/A 02/17/16 00:15 02/16/17 00:14 Acetaminophen (Tylenol Tab) 650 mg Q4H PRN PO 02/17/16 01:00 03/18/16 00:59 Zolpidem Tartrate (Ambien Tab) 5 mg HSZ PRN PO 02/17/16 01:00 03/18/16 00:59 Ondansetron HCl (Zofran Inj) 4 mg Q6H PRN IV 02/17/16 01:15 03/18/16 01:14 Acetaminophen/ Codeine Phosphate (Tylenol w/ Codeine #3 Tab) 1 tab Q6 PRN PO 02/17/16 01:15 03/18/16 01:14 Alfuzosin HCl (Uroxatral Tab) 10 mg QPM PO 02/17/16 21:00 03/18/16 20:59 02/20/16 21:03 10 MG Aspirin (Ecotrin Tab) 81 mg QAM PO 02/17/16 09:00 03/18/16 08:59 02/21/16 09:13 81 MG Levothyroxine Sodium (Synthroid Tab) 125 mcg DAILYBB PO 02/17/16 06:00 03/18/16 05:59 02/21/16 05:46 125 MCG Multivitamins/ Minerals (Multivitamin W/ Minerals Tab) 1 tab QAM PO 02/17/16 09:00 03/18/16 08:59 02/21/16 09:15 1 TAB Miscellaneous Information (Order Awaiting Action) 1 ea QS N/A 02/17/16 08:00 03/18/16 07:59 Pantoprazole Sodium (Protonix Tab) 40 mg QAM PO 02/17/16 09:00 03/18/16 08:59 02/21/16 09:13 40 MG Cholestyramine Resin (Questran Powder Light) 4 gm BID@1000,2200 PO 02/17/16 10:00 03/18/16 09:59 02/20/16 22:13 4 GM Loperamide HCl (Imodium Cap) 2 mg UD PRN PO 02/17/16 10:30 03/18/16 10:29 02/19/16 22:12 2 MG Ferrous Sulfate (Feosol Tab) 325 mg BIDM PO 02/17/16 11:15 03/18/16 11:14 02/21/16 09:13 325 MG Enteral Nutritional Formula (Boost) 1 can BID PO 02/17/16 21:00 03/18/16 20:59 02/21/16 09:20 1 CAN Saccharomyces Boulardii (Florastor Cap) 250 mg DAILY PO 02/18/16 09:00 2/12/17 08:59 02/21/16 09:13 250 MG Sodium Bicarbonate 650 mg 650 mg BID PO 02/19/16 21:00 03/20/16 20:59 02/21/16 09:13 650 MG Piperacillin Sod/ Tazobactam Sod/ Dextrose (Zosyn Iv/D5 100ml) 115 ml @ 28.75 mls/ hr Q8H IV 02/20/16 18:00 03/01/16 17:59 02/21/16 04:15 28.75 MLS/HR Piperacillin Sod/ Tazobactam Sod (Consult) 1 ea UD PRN N/A 02/20/16 12:45 03/21/16 12:44 Morphine Sulfate (MoRPHine SULFATE INJ) 4 mg Q4H PRN IV 02/20/16 17:45 03/05/16 17:44 Morphine Sulfate (MoRPHine SULFATE INJ) 2 mg Q4H PRN IV 02/20/16 17:45 03/05/16 17:44 Lorazepam (Ativan Inj) 0.5 mg Q4H PRN IV 02/20/16 17:45 03/21/16 17:44 Lorazepam 1 mg 1 mg Q4H PRN IV 02/20/16 17:45 03/21/16 17:44 Lorazepam 1 mg/ Syringe 1 ml @ 1 mls/min Q4H PRN IV 02/20/16 18:00 03/21/16 17:59 Lorazepam 0.5 mg/ Syringe 1 ml @ 1 mls/min Q4H PRN IV 02/20/16 18:00 03/21/16 17:59 Sodium Bicarbonate 50 meq/Dextrose 1,050 ml @ 100 mls/hr [id number] IV 02/20/16 22:30 03/21/16 22:29 02/21/16 09:12 100 MLS/HR Imipenem/ Cilastatin Sodium/ Dextrose (Primaxin Iv/D5 100ml) 110 ml @ 100 mls/hr Q6H IV 02/21/16 08:30 03/01/16 17:59 02/21/16 09:12 100 MLS/HR (Ade Ramos, RAMIRO) Objective Vital Signs Date Time Temp Pulse Resp B/P Pulse Ox O2 Delivery O2 Flow Rate FiO2 02/21/16 11:06 36.3 74 20 91/54 100 Nasal Cannula 2.0 02/21/16 08:00 Room Air 02/21/16 07:55 36.8 69 20 90/53 100 Nasal Cannula 2.0 02/21/16 04:00 Nasal Cannula 3.0 02/21/16 02:55 36.6 78 18 90/52 100 Nasal Cannula 2.0 02/21/16 00:01 Nasal Cannula 3.0 02/21/16 00:00 36.6 80 17 86/61 98 Nasal Cannula 2.0 02/20/16 20:00 Nasal Cannula 3.0 02/20/16 19:46 36.3 79 22 89/43 100 Nasal Cannula 3.0 02/20/16 19:33 36.3 79 22 89/43 100 Nasal Cannula 3.0 02/20/16 16:00 36.4 78 24 73/47 98 Room Air 87/45 02/20/16 16:00 Room Air 02/20/16 14:32 90/49 (Ade Ramos PA-C) Physical Exam General Appearance: WD/WN, no apparent distress, + thin ENT: hearing grossly normal Neck: supple, trachea midline Respiratory/Chest: no respiratory distress, no accessory muscle use, + decreased breath sounds Cardiovascular: regular rate, rhythm, no gallop, + systolic murmur Abdomen: normal bowel sounds, non tender, soft Extremities: no pedal edema, no calf tenderness Neurologic/Psychiatric: alert, + disoriented, + pertinent finding (lethargic) Skin: normal color, warm/dry (Ade Ramos PA-C) Laboratory Results Last 24 Hours Test 02/20/16 13:00 02/20/16 14:15 02/20/16 20:14 02/21/16 06:28 Arterial Blood pH 7.32 Arterial Blood Partial Pressure CO2 21 mmHg Arterial Blood Partial Pressure O2 98 mm/Hg Arterial Blood HCO3 11 mmol/L Arterial Blood Oxygen Saturation 96.4 % Arterial Blood Base Excess -14.2 mEq/L Arterial Blood Gas Delivery ROOM AIR Juan Carlos Test POS Lactic Acid Level 1.8 mmol/L Sodium Level 152 mmol/L 148 mmol/L 146 mmol/L Potassium Level 2.6 mmol/L 4.9 mmol/L 4.9 mmol/L Chloride Level 130 mmol/L 124 mmol/L 123 mmol/L Carbon Dioxide Level 7 mmol/L 12 mmol/L 12 mmol/L Anion Gap 15.0 mmol/L 12.0 mmol/L 11.0 mmol/L Blood Urea Nitrogen 39 mg/dl 56 mg/dl 56 mg/dl Creatinine 1.20 mg/dl 2.10 mg/dl 2.10 mg/dl Est Creatinine Clear Calc Drug Dose 51.2 ml/min 29.3 ml/min 32.1 ml/min Estimated GFR () 64.4 32.7 32.7 Estimated GFR (Non- 55.6 28.3 28.3 BUN/Creatinine Ratio 32.8 26.6 26.8 Random Glucose 80 mg/dl 162 mg/dl 169 mg/dl Calcium Level 5.1 mg/dl 8.8 mg/dl 8.7 mg/dl Ionized Calcium 1.37 mmol/l Phosphorus Level 3.0 mg/dl Albumin 1.9 gm/dl (Ade Ramos, PABellC) Assessment and Plan 85 M with recent c diff, presents with weakness that preceded this C diff, abnormal ECG and very mild troponin elevation. Despite treatment with bowel appropriate antibiotics, has had intermittent confusion and now lower blood pressure, has also developed hyperchloremic gap/non gap acidosis Pt has poor progress and 02/19 has lower blood pressure and agrees to make DNR but request to continue treatment. Encephalopathy: 2/2 Metabolic Acidosis and Infection: - UA - E coli - Will de-escalate to Rocephin 1 g daily Diarrhea: - Assessment - finished 10 days Flagyl as outpatient; urology considers possible enlarging bladder tumor influencing sigmoid colon and emptying - Imaging -- CT - evidence of air in bladder possible fistula - no surgical intervention - Repeat C. Diff - negative Hyperchloremic Metabolic Acidosis: - Etiology - fluid losses from diarrhea or intrinsic renal disease - Will decrease D5 with Bicarb gtt to 50 mL/hr in setting of congestion -- Will continue monitoring as balancing fluid status and need for sodium bicarb in setting of acidosis will be challenging - Nephrology following - continue bicarb gtt and oral bicarb -- Patient wishes to not pursue dialysis per renal note -- Bicarb po 1300 mg BID Hypotension: - Remains hypotensive but BPs stabilized Bladder CA: Poor Prognosis: - Has not received radiation or chemotherapy due to C. Diff infection BPH: - Uroxatral 10 mg daily and Avodart 0.5 mg daily CAD with Grade I Diastolic Dysfunction: EKG changes and Elevated Trops; Preserved EF - Assessment - patient with evidence of increased congestion with CXR imaging reviewed that shows elevation of interstitium consistent with worsening congestion from 02/19 CXR - Bumex 1 mg x 1 dose - ASA 81 mg daily - Cardiology - suggests supply/demand mismatch 2/2 anemia and illness stress Anemia: Iron Deficiency - CT - suggestive of colon abnormality with H/O rectal stricture Hypothyroidism: - Levothyroxine 125 mcg daily Disposition: - Will discuss with family for palliative consult (Ade Ramos, PA-C) Attending Attestation: Pt seen/examined, chart reviewed, and care plan d/w DEBI Ramos. I agree with the coates components of her documentation. During my visit he awokened for me and knew he was in the hospital. Just c/o feeling tired. He promptly got short of breath with just sitting up in the bed. vitals - BPs low or low-normal, O2 sats acceptable on NC O2 gen - looks thin, tired mouth - MM slightly dry neck - no obvious JVD heart - s1, s2, RRR lungs - basilar rales b/l, got dyspneic with moving in the bed abd - soft, NT ext - SCDs in place, pulses 2+ b/l labs - Cr 2.1 HCO3 12 albumin 1.9 urine cx with e. coli a/p: recent encephalopathy, likely metabolic from UTI e. coli UTI low-normal BP, likely 2nd to sepsis from UTI ongoing acidosis, mainly nonanion gap ongoing diarrhea, with c. 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 Rachel Sandoval MD (Shaun Sandoval MD)
[2016-02-21] MEDS ORDERED: BUMETANIDE IV 1 MG in SYRINGE 0 ML IV ONE (16:45)
[2016-02-21] MEDS: CEFTRIAXONE SOD INJ 1 GM in DEXTROSE 5% ADD-VANTAGE 50ML 50 ML IV SCH (17:52)
[2016-02-21] MEDS: ALFUZosin TAB 10 MG TAB PO SCH (21:04)
[2016-02-22] VITALS (10 sets, daily range): BP systolic 77–99; BP diastolic 50–65; PULSE 70–93; TEMP 36.4–37; O2SAT 95–99
[2016-02-22] MEDS: DEXTROSE 5% IV SCH (00:52)
[2016-02-22] MEDS: SODIUM BICARBONATE IV SCH (00:52)
[2016-02-22] MEDS: PIPERACILL/TAZOBAC IV 3.375 GM in DEXTROSE 5% 100ML 100 ML IV SCH (03:35)
[2016-02-22] MEDS: LEVOTHYROXINE 125 MCG TAB PO SCH (06:20)
[2016-02-22 06:37] LABS: BASO % 0.1 %; BASO ABS # 0.01 K/uL (0-0.2); EOS % 1.9 %; HEMATOCRIT 26.3 % (42-52); IG% 0.7 %; LYMPH % 12.5 %; LYMPH ABS # 2.25 K/uL (1.2-3.4); MEAN CORPUSCULAR HEMOGLOBIN 26.5 pg (25-34); MEAN CORPUSCULAR HGB CONC 31.9 g/dl (32-36); MEAN PLATELET VOLUME 10.2 fL (7.4-10.4); MONO % 8.8 %; PLATELET COUNT 248 K/uL (130-400); RED BLOOD COUNT 3.17 M/uL (4.7-6.1); WHITE BLOOD COUNT 17.94 K/uL (4.8-10.8)
[2016-02-22 07:15] LABS: ANISOCYTOSIS PRESENT; COMPLETE YES; ECHINOCYTES 1+
[2016-02-22 07:24] LABS: BUN/CREATININE RATIO 26.7 (10-20); CALCIUM 8.7 mg/dl (8.5-10.1); CREATININE 2.2 mg/dl (0.60-1.40); MAGNESIUM 1.7 mg/dl (1.8-2.4); PHOSPHORUS 3.2 mg/dl (2.5-4.9); POTASSIUM 4.4 mmol/L (3.5-5.1)
[2016-02-22] MEDS: AVODART~ORDER AWAITING ACTION SCH ×4 (08:00→23:49)
[2016-02-22] MEDS: ASPIRIN 81 MG ECTAB PO SCH (08:13)
[2016-02-22] MEDS: FERROUS SULFATE 325 MG TAB PO SCH ×2 (08:13→16:25)
[2016-02-22] MEDS: SODIUM BICARBONATE 650 MG TAB PO SCH ×3 (08:13→20:42)
[2016-02-22] MEDS: PANTOprazole SOD 40 MG TAB PO SCH (08:14)
[2016-02-22] MEDS: CEROVITE ADV FORMULA TAB PO SCH (08:14)
[2016-02-22] MEDS: SACCHAROMYCES BOUL (FLORASTOR) 250 MG CAP PO SCH (08:14)
[2016-02-22] MEDS ORDERED: MAGNESIUM SULFATE 1GM / D5W 1 GM in PREMIXED IN D5W 100 ML IV ONE (08:15)
[2016-02-22] MEDS: BOOST VANILLA PO SCH ×4 (08:52→22:42)
[2016-02-22] MEDS: CHOLESTYRAMINE LIGHT 4 GM PKT PO SCH ×2 (10:04→22:42)
--- NOTE | 2016-02-22 10:20 | Nephrology Progress Note ---
Nephrology Progress Note Date of Service Feb 22, 2016. Chief Complaint CKD, LEE ANN, multiple electrolyte abnormalities Subjective No acute events overnight. No complaints this morning. Dyspneic with minimal activity per reports. PT in to see patient this morning. Appetite poor. Patient states that he ate 50% of breakfast. Slept well overnight. Mr. Rendon states that his primary goal is to go home. Review of Systems A complete review of systems was performed. Pertinent positives are noted above. All other systems are negative. Vital Signs Last 8 Hrs Date Time Temp Pulse Resp B/P Pulse Ox O2 Delivery O2 Flow Rate FiO2 02/22/16 09:45 98 Nasal Cannula 2.0 02/22/16 07:24 37.0 81 20 90/50 98 Nasal Cannula 2.0 02/22/16 04:05 Nasal Cannula 2.0 02/22/16 03:53 36.4 85 18 99/65 99 2.0 I & O 24-Hour Column 02/22/16 08:00 Intake Total 4040 ml Balance 4040 ml Last Recorded Weight Weight (Kilograms): 97.100 Physical Exam General Appearance: no apparent distress, + thin Head: normocephalic, atraumatic Eyes: normal inspection, sclerae normal ENT: normal ENT inspection, pharynx normal Neck: supple, no JVD Respiratory/Chest: lungs clear, no respiratory distress, no accessory muscle use, + rales (faint) Cardiovascular: regular rate, rhythm, no gallop Abdomen/GI: non tender, soft Extremities/Musculoskelatal: normal inspection, + pedal edema Neurologic/Psych: alert, oriented x 3 Social History Smokeless Tobacco Use: No Alcohol Use: none Drug Use: none Marital Status: Housing Status: lives with family Occupation: retired Laboratory Results Past 24 Hours 02/22/16 06:15 Red Blood Count 3.17, Mean Corpuscular Volume 83.0, Mean Corpuscular Hemoglobin 26.5, Mean Corpuscular Hemoglobin Concent 31.9, Mean Platelet Volume 10.2, Neutrophils (%) (Auto) 76.0, Lymphocytes (%) (Auto) 12.5, Monocytes (%) (Auto) 8.8, Eosinophils (%) (Auto) 1.9, Basophils (%) (Auto) 0.1, Neutrophils # (Auto) 13.65, Lymphocytes # (Auto) 2.25, Monocytes # (Auto) 1.57, Eosinophils # (Auto) 0.34, Basophils # (Auto) 0.01 02/21/16 13:55 02/22/16 06:24 Test 02/21/16 13:55 02/22/16 06:15 02/22/16 06:24 Anion Gap 12.0 mmol/L (3-11) 13.0 mmol/L (3-11) Est Creatinine Clear Calc Drug Dose 30.6 ml/min 30.7 ml/min Estimated GFR () 31.0 31.0 Estimated GFR (Non- 26.7 26.7 BUN/Creatinine Ratio 26.3 (10-20) 26.7 (10-20) Calcium Level 8.9 mg/dl (8.5-10.1) 8.7 mg/dl (8.5-10.1) Phosphorus Level 3.0 mg/dl (2.5-4.9) 3.2 mg/dl (2.5-4.9) Albumin 1.9 gm/dl (3.4-5.0) White Blood Count 17.94 K/uL (4.8-10.8) Red Blood Count 3.17 M/uL (4.7-6.1) Hemoglobin 8.4 g/dL (14.0-18.0) Hematocrit 26.3 % (42-52) Mean Corpuscular Volume 83.0 fL (80-100) Mean Corpuscular Hemoglobin 26.5 pg (25-34) Mean Corpuscular Hemoglobin Concent 31.9 g/dl (32-36) Platelet Count 248 K/uL (130-400) Mean Platelet Volume 10.2 fL (7.4-10.4) Neutrophils (%) (Auto) 76.0 % Lymphocytes (%) (Auto) 12.5 % Monocytes (%) (Auto) 8.8 % Eosinophils (%) (Auto) 1.9 % Basophils (%) (Auto) 0.1 % Neutrophils # (Auto) 13.65 K/uL (1.4-6.5) Lymphocytes # (Auto) 2.25 K/uL (1.2-3.4) Monocytes # (Auto) 1.57 K/uL (0.11-0.59) Eosinophils # (Auto) 0.34 K/uL (0-0.5) Basophils # (Auto) 0.01 K/uL (0-0.2) RDW Standard Deviation 54.5 fL (36.4-46.3) RDW Coefficient of Variation 17.8 % (11.5-14.5) Immature Granulocyte % (Auto) 0.7 % Immature Granulocyte # (Auto) 0.12 K/uL (0.00-0.02) Anisocytosis PRESENT Echinocytes 1+ Magnesium Level 1.7 mg/dl (1.8-2.4) Date/Time Source Procedure Growth Status 02/21/16 22:30 Stool C.difficile Toxin B Gene (PCR) - Final No C. difficile toxin B gene detected Complete Allergies Coded Allergies: No Known Allergies (Unverified , 02/16/16) Medications Current Inpatient Medications Medications (Trade) Dose Ordered Sig/Lizbeth Route Start Time Stop Time Status Last Admin Dose Admin Miscellaneous (Iv Fluids Completed) 1 ea PRN PRN N/A 02/17/16 00:15 02/16/17 00:14 Acetaminophen (Tylenol Tab) 650 mg Q4H PRN PO 02/17/16 01:00 03/18/16 00:59 Zolpidem Tartrate (Ambien Tab) 5 mg HSZ PRN PO 02/17/16 01:00 03/18/16 00:59 Ondansetron HCl (Zofran Inj) 4 mg Q6H PRN IV 02/17/16 01:15 03/18/16 01:14 Acetaminophen/ Codeine Phosphate (Tylenol w/ Codeine #3 Tab) 1 tab Q6 PRN PO 02/17/16 01:15 03/18/16 01:14 Alfuzosin HCl (Uroxatral Tab) 10 mg QPM PO 02/17/16 21:00 03/18/16 20:59 02/21/16 21:04 10 MG Aspirin (Ecotrin Tab) 81 mg QAM PO 02/17/16 09:00 03/18/16 08:59 02/22/16 08:13 81 MG Levothyroxine Sodium (Synthroid Tab) 125 mcg DAILYBB PO 02/17/16 06:00 03/18/16 05:59 02/22/16 06:20 125 MCG Multivitamins/ Minerals (Multivitamin W/ Minerals Tab) 1 tab QAM PO 02/17/16 09:00 2/11/17 08:59 02/22/16 08:14 1 TAB Miscellaneous Information (Order Awaiting Action) 1 ea QS N/A 02/17/16 08:00 03/18/16 07:59 Pantoprazole Sodium (Protonix Tab) 40 mg QAM PO 02/17/16 09:00 03/18/16 08:59 02/22/16 08:14 40 MG Cholestyramine Resin (Questran Powder Light) 4 gm BID@1000,2200 PO 02/17/16 10:00 03/18/16 09:59 02/22/16 10:04 4 GM Loperamide HCl (Imodium Cap) 2 mg UD PRN PO 02/17/16 10:30 03/18/16 10:29 02/19/16 22:12 2 MG Ferrous Sulfate (Feosol Tab) 325 mg BIDM PO 02/17/16 11:15 03/18/16 11:14 02/22/16 08:13 325 MG Enteral Nutritional Formula (Boost) 1 can BID PO 02/17/16 21:00 03/18/16 20:59 02/22/16 08:52 1 CAN Saccharomyces Boulardii (Florastor Cap) 250 mg DAILY PO 02/18/16 09:00 03/19/16 08:59 02/22/16 08:14 250 MG Morphine Sulfate (MoRPHine SULFATE INJ) 4 mg Q4H PRN IV 02/20/16 17:45 03/05/16 17:44 Morphine Sulfate (MoRPHine SULFATE INJ) 2 mg Q4H PRN IV 02/20/16 17:45 03/05/16 17:44 Lorazepam (Ativan Inj) 0.5 mg Q4H PRN IV 02/20/16 17:45 03/21/16 17:44 Lorazepam 1 mg 1 mg Q4H PRN IV 02/20/16 17:45 03/21/16 17:44 Lorazepam 1 mg/ Syringe 1 ml @ 1 mls/min Q4H PRN IV 02/20/16 18:00 03/21/16 17:59 Lorazepam 0.5 mg/ Syringe 1 ml @ 1 mls/min Q4H PRN IV 02/20/16 18:00 03/21/16 17:59 Ceftriaxone Sodium/Dextrose (Rocephin Inj/ Dextrose Add-[place] 50ML) 50 ml @ 100 mls/hr DAILY@1700 IV 02/21/16 17:00 03/02/16 16:59 02/21/16 17:52 100 MLS/HR Impression (1) Metabolic acidosis (2) Hypernatremia (3) Hypokalemia (4) CKD (chronic kidney disease) stage 4, GFR 15-29 ml/min (5) Nephrolithiasis (6) Bladder cancer 85-year-old gentlemen with recurrent bladder cancer causing renal impairment with bilateral hydronephrosis. Baseline creatinine has been around 2-2.5, on admission creatinine was slightly elevated from baseline which improved and currently staying around 2.1-2.2. Has been having diarrhea for last 3 weeks with poor p.o. intake. Admitted to the hospital with generalized weakness and over last few days developed hypernatremia, hypokalemia and gap and non gap metabolic acidosis secondary to GI loss of potassium and bicarb as well as poor p.o. intake. Has been hypotensive. Blood pressure and volume status have improved. Mr. Rodriguez remains very lethargic with decreased oral intake. Mr. Rodriguez has made it clear that dialysis will not be considered in the treatment plan. He had previously communicated this during outpatient visits and stated his goals of care again today. We will continue bicarbonate replacement and close monitoring of electrolytes. IV bicarbonate gtt discontinued this morning. Will continue oral NaHCO3. Encourage nutrition. Plan of care discussed with Dr. Granados this morning. Mr. Rodriguez and his have stated that primary goals of care remain comfort and quality of life. Recommendations -- Stop HCO3 gtt -- Continue oral HCO3 replacement 1300 TID -- Repeat renal profile tomorrow AM -- Encourage nutrition
--- NOTE | 2016-02-22 11:00 | Palliative Care Consultation ---
Consultation Date of Consultation: Feb 22, 2016. Requesting Physician: Ade Ramos PA-C Attending Physician: Dr. Sandoval Reason for Consultation: Goals of care History of Present Illness This 85 year old male patient presented to the ED six days ago with family c/o increased weakness over the last few days. The patient apparently had just completed a 10 day course of Flagyl for C. diff that started on 02/04/16, but he was still having loose stools and decreased PO intake. Patient has a current diagnosis of bladder cancer, follows with Dr. Spicer, but has not been able to start his palliative chemo/radiation due to this ongoing C. diff infection. In the ED, CXR negative for any acute process, WBC 18.6k, BUN/Cr 71/2.30, trop 0.285, EKG with possible lateral ischemia. Patient admitted to telemetry unit. Echocardiogram done showing EF 50-55%, mild LVH, and grade I diastolic dysfunction. Cardiology believes the elevated troponin is related to demand ischemia and not a true cardiac event. The patient has also had nephrology, urology, and surgical consults as well. CT abd/pelvis showed a small amount of air in the bladder which urology believes is likely from his home intermittent straight catheterization of the bladder. The CT also showed a large bladder mass and bilateral hydroureteronephrosis. 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 He does also have an E. coli UTI, hyperchloremic metabolic acidosis, metabolic encephalopathy, anemia, and other problems. Overall, patient has a quite poor prognosis. Palliative care consulted to assist with establishing goals of care. I met with the patient in his room first. He is fairly lucid today, able to hold conversation and answer appropriately. Was slightly disoriented and groggy when first woken. He stated that his goal is for comfort and best quality of life for however much time he has left. He stated that his living will still stands, which states he would not want any heroic measures or invasive procedures if he is unable to make a meaningful recovery. He deferred any other decision making to his , Candy Rodriguez, and son, Gagan Rodriguez. I did then meet with the patient's and son, Dr. Sandoval was present as well. The family also agreed that their only goal at this point is comfort, they do not wish to escalate care in any way and would like the patient to be discharged on comfort measures only. We discussed options for discharge and comfort care. See plan below. Past Medical/Surgical History Medical History: Bladder CA Hypertension Hyperlipidemia Hypothyroidism BPH CKD Surgical History: Cholecystectomy Hernia repair Bladder surgery TURBT Social History Smoking Status: Never Smoker History of Alcohol Use: No Drug Use: none Marital Status: Housing Status: lives with family Occupation Status: retired Review of Systems Constitutional: + weakness (generalized, somewhat improved today), No chills, No fever Respiratory: + cough, + dyspnea on exertion, No shortness of breath, No sputum Cardiac: No chest pain Abdomen: + problem reported (poor appetite), No nausea, No pain, No vomiting Male : + problem reported (incontinence) Psychiatric: No anxiety Allergies Coded Allergies: No Known Allergies (Unverified , 02/16/16) Medications Current Inpatient Medications Medications (Trade) Dose Ordered Sig/Lizbeth Route Start Time Stop Time Status Last Admin Dose Admin Miscellaneous (Iv Fluids Completed) 1 ea PRN PRN N/A 02/17/16 00:15 02/16/17 00:14 Acetaminophen (Tylenol Tab) 650 mg Q4H PRN PO 02/17/16 01:00 03/18/16 00:59 Zolpidem Tartrate (Ambien Tab) 5 mg HSZ PRN PO 02/17/16 01:00 03/18/16 00:59 Ondansetron HCl (Zofran Inj) 4 mg Q6H PRN IV 02/17/16 01:15 03/18/16 01:14 Acetaminophen/ Codeine Phosphate (Tylenol w/ Codeine #3 Tab) 1 tab Q6 PRN PO 02/17/16 01:15 03/18/16 01:14 Alfuzosin HCl (Uroxatral Tab) 10 mg QPM PO 02/17/16 21:00 03/18/16 20:59 02/21/16 21:04 10 MG Aspirin (Ecotrin Tab) 81 mg QAM PO 02/17/16 09:00 03/18/16 08:59 02/22/16 08:13 81 MG Levothyroxine Sodium (Synthroid Tab) 125 mcg DAILYBB PO 02/17/16 06:00 03/18/16 05:59 02/22/16 06:20 125 MCG Multivitamins/ Minerals (Multivitamin W/ Minerals Tab) 1 tab QAM PO 02/17/16 09:00 03/18/16 08:59 02/22/16 08:14 1 TAB Miscellaneous Information (Order Awaiting Action) 1 ea QS N/A 02/17/16 08:00 03/18/16 07:59 Pantoprazole Sodium (Protonix Tab) 40 mg QAM PO 02/17/16 09:00 03/18/16 08:59 02/22/16 08:14 40 MG Cholestyramine Resin (Questran Powder Light) 4 gm BID@1000,2200 PO 02/17/16 10:00 03/18/16 09:59 02/22/16 10:04 4 GM Loperamide HCl (Imodium Cap) 2 mg UD PRN PO 02/17/16 10:30 03/18/16 10:29 02/19/16 22:12 2 MG Ferrous Sulfate (Feosol Tab) 325 mg BIDM PO 02/17/16 11:15 03/18/16 11:14 02/22/16 08:13 325 MG Enteral Nutritional Formula (Boost) 1 can BID PO 02/17/16 21:00 03/18/16 20:59 02/22/16 08:52 1 CAN Saccharomyces Boulardii (Florastor Cap) 250 mg DAILY PO 02/18/16 09:00 03/19/16 08:59 02/22/16 08:14 250 MG Morphine Sulfate (MoRPHine SULFATE INJ) 4 mg Q4H PRN IV 02/20/16 17:45 03/05/16 17:44 Morphine Sulfate (MoRPHine SULFATE INJ) 2 mg Q4H PRN IV 02/20/16 17:45 03/05/16 17:44 Lorazepam (Ativan Inj) 0.5 mg Q4H PRN IV 02/20/16 17:45 03/21/16 17:44 Lorazepam 1 mg 1 mg Q4H PRN IV 02/20/16 17:45 03/21/16 17:44 Lorazepam 1 mg/ Syringe 1 ml @ 1 mls/min Q4H PRN IV 02/20/16 18:00 03/21/16 17:59 Lorazepam 0.5 mg/ Syringe 1 ml @ 1 mls/min Q4H PRN IV 02/20/16 18:00 03/21/16 17:59 Ceftriaxone Sodium/Dextrose (Rocephin Inj/ Dextrose Add-[place] 50ML) 50 ml @ 100 mls/hr DAILY@1700 IV 02/21/16 17:00 03/02/16 16:59 02/21/16 17:52 100 MLS/HR Sodium Bicarbonate (Sodium Bicarbonate Tab) 1,300 mg TID PO 02/22/16 14:00 03/23/16 13:59 UNV Physical Exam Date Time Temp Pulse Resp B/P Pulse Ox O2 Delivery O2 Flow Rate FiO2 02/22/16 09:45 98 Nasal Cannula 2.0 02/22/16 07:24 37.0 81 20 90/50 98 Nasal Cannula 2.0 02/22/16 04:05 Nasal Cannula 2.0 02/22/16 03:53 36.4 85 18 99/65 99 2.0 02/22/16 00:10 97 Nasal Cannula 2.0 02/22/16 00:05 36.4 82 16 94/61 97 2.0 02/21/16 20:30 99 Nasal Cannula 2.0 02/21/16 19:43 36.0 78 20 104/62 99 02/21/16 16:00 36.0 74 20 100/67 100 Nasal Cannula 2.0 02/21/16 16:00 Nasal Cannula 2.0 02/21/16 12:00 Room Air 02/21/16 11:06 36.3 74 20 91/54 100 Nasal Cannula 2.0 General Appearance: no apparent distress Neck: no JVD, trachea midline Respiratory: no respiratory distress, no accessory muscle use, + decreased breath sounds, + pertinent finding (noted dyspnea on exertion) Cardiovascular: regular rate, rhythm, + normal peripheral pulses, + pertinent finding (+1 pitting edema to bilateral feet) Abdomen: normal bowel sounds, non tender, soft Neurologic/Psychiatric: alert, normal mood/affect, + pertinent finding ( slightly disoriented when first waking) Skin: normal color Laboratory Results Last 24 Hours Test 02/21/16 13:55 02/22/16 06:15 02/22/16 06:24 Sodium Level 142 mmol/L 143 mmol/L Potassium Level 4.8 mmol/L 4.4 mmol/L Chloride Level 119 mmol/L 118 mmol/L Carbon Dioxide Level 11 mmol/L 12 mmol/L Anion Gap 12.0 mmol/L 13.0 mmol/L Blood Urea Nitrogen 58 mg/dl 59 mg/dl Creatinine 2.20 mg/dl 2.20 mg/dl Est Creatinine Clear Calc Drug Dose 30.6 ml/min 30.7 ml/min Estimated GFR () 31.0 31.0 Estimated GFR (Non- 26.7 26.7 BUN/Creatinine Ratio 26.3 26.7 Random Glucose 229 mg/dl 94 mg/dl Calcium Level 8.9 mg/dl 8.7 mg/dl Phosphorus Level 3.0 mg/dl 3.2 mg/dl Albumin 1.9 gm/dl White Blood Count 17.94 K/uL Red Blood Count 3.17 M/uL Hemoglobin 8.4 g/dL Hematocrit 26.3 % Mean Corpuscular Volume 83.0 fL Mean Corpuscular Hemoglobin 26.5 pg Mean Corpuscular Hemoglobin Concent 31.9 g/dl Platelet Count 248 K/uL Mean Platelet Volume 10.2 fL Neutrophils (%) (Auto) 76.0 % Lymphocytes (%) (Auto) 12.5 % Monocytes (%) (Auto) 8.8 % Eosinophils (%) (Auto) 1.9 % Basophils (%) (Auto) 0.1 % Neutrophils # (Auto) 13.65 K/uL Lymphocytes # (Auto) 2.25 K/uL Monocytes # (Auto) 1.57 K/uL Eosinophils # (Auto) 0.34 K/uL Basophils # (Auto) 0.01 K/uL RDW Standard Deviation 54.5 fL RDW Coefficient of Variation 17.8 % Immature Granulocyte % (Auto) 0.7 % Immature Granulocyte # (Auto) 0.12 K/uL Anisocytosis PRESENT Echinocytes 1+ Magnesium Level 1.7 mg/dl Assessment & Plan Palliative Performance Scale: 40 % Problem list: Confusion/altered mental status- metabolic encephalopathy Weakness Hyperchloremic metabolic acidosis E. coli UTI- possible bowel/bladder fistula? 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 Sandoval and with the patient, patient's , Candy, and son, Gagan. Per patient's living will and his family, the goal is for comfort. The patient does not want any heroic measures or escalation of care. Ultimately the goal will be to get the patient to [facility]. POLST form will hopefully be done before discharge, and I did touch base about this with the family. Patient states he just wants the best quality of life for the remainder of his life, goal is to stay out of the hospital and to transfer back only if comfort needs cannot be met. Updated egg caser as well. I will continue to follow. Thank you kindly for this consult.
[2016-02-22] MEDS: CEFTRIAXONE SOD INJ 1 GM in DEXTROSE 5% ADD-VANTAGE 50ML 50 ML IV SCH (16:25)
--- NOTE | 2016-02-22 17:19 | Progress Note ---
Subjective Date of Service: Feb 22, 2016. (Ade Ramos PA-C) Subjective Pt evaluation today including: conversation w/ patient, conversation w/ family , physical exam, chart review, lab review, conversation w/ in home sales consultant ( Palliative Care - Maria R), review of inpatient medication list Patient seen and evaluated. Patient appears more drowsy today but answering questions appropriately. States he was exhausted stating he was getting moved around to help clean him up. Poor appetite but reports enjoying Boost shakes. Palliative Consult placed to discuss goals of care. ROS reviewed and negative except for generalized fatigue and cough. (Ade Ramos PA-C) Problem List Medical Problems: (1) Complication of catheter Status: Acute (2) Ferreira catheter problem Status: Acute (3) Weakness Status: Acute (Ade Ramos PA-C) Review of Systems Constitutional: No chills, No fever Respiratory: + cough, + dyspnea on exertion, No shortness of breath Cardiac: No chest pain Abdomen: + diarrhea, No nausea, No pain, No vomiting Male : + incontinence Endo: + fatigue (Ade Ramos PA-C) Objective Vital Signs Date Time Temp Pulse Resp B/P Pulse Ox O2 Delivery O2 Flow Rate FiO2 02/22/16 07:24 37.0 81 20 90/50 98 Nasal Cannula 2.0 02/22/16 04:05 Nasal Cannula 2.0 02/22/16 03:53 36.4 85 18 99/65 99 2.0 02/22/16 00:10 97 Nasal Cannula 2.0 02/22/16 00:05 36.4 82 16 94/61 97 2.0 02/21/16 20:30 99 Nasal Cannula 2.0 02/21/16 19:43 36.0 78 20 104/62 99 02/21/16 16:00 36.0 74 20 100/67 100 Nasal Cannula 2.0 02/21/16 16:00 Nasal Cannula 2.0 02/21/16 12:00 Room Air 02/21/16 11:06 36.3 74 20 91/54 100 Nasal Cannula 2.0 (Ade Ramos PA-C) Physical Exam General Appearance: WD/WN, no apparent distress, + thin Eyes: sclerae normal ENT: hearing grossly normal Neck: supple, no JVD, trachea midline Respiratory/Chest: no respiratory distress, no accessory muscle use, + rales ( bilat lower lung goldstein) Cardiovascular: regular rate, rhythm Abdomen: normal bowel sounds, non tender, soft Extremities: + pedal edema (trace) Neurologic/Psychiatric: alert Skin: normal color (Ade Ramos PA-C) Laboratory Results Last 24 Hours Test 02/21/16 13:55 02/22/16 06:15 02/22/16 06:24 Sodium Level 142 mmol/L 143 mmol/L Potassium Level 4.8 mmol/L 4.4 mmol/L Chloride Level 119 mmol/L 118 mmol/L Carbon Dioxide Level 11 mmol/L 12 mmol/L Anion Gap 12.0 mmol/L 13.0 mmol/L Blood Urea Nitrogen 58 mg/dl 59 mg/dl Creatinine 2.20 mg/dl 2.20 mg/dl Est Creatinine Clear Calc Drug Dose 30.6 ml/min 30.7 ml/min Estimated GFR () 31.0 31.0 Estimated GFR (Non- 26.7 26.7 BUN/Creatinine Ratio 26.3 26.7 Random Glucose 229 mg/dl 94 mg/dl Calcium Level 8.9 mg/dl 8.7 mg/dl Phosphorus Level 3.0 mg/dl 3.2 mg/dl Albumin 1.9 gm/dl White Blood Count 17.94 K/uL Red Blood Count 3.17 M/uL Hemoglobin 8.4 g/dL Hematocrit 26.3 % Mean Corpuscular Volume 83.0 fL Mean Corpuscular Hemoglobin 26.5 pg Mean Corpuscular Hemoglobin Concent 31.9 g/dl Platelet Count 248 K/uL Mean Platelet Volume 10.2 fL Neutrophils (%) (Auto) 76.0 % Lymphocytes (%) (Auto) 12.5 % Monocytes (%) (Auto) 8.8 % Eosinophils (%) (Auto) 1.9 % Basophils (%) (Auto) 0.1 % Neutrophils # (Auto) 13.65 K/uL Lymphocytes # (Auto) 2.25 K/uL Monocytes # (Auto) 1.57 K/uL Eosinophils # (Auto) 0.34 K/uL Basophils # (Auto) 0.01 K/uL RDW Standard Deviation 54.5 fL RDW Coefficient of Variation 17.8 % Immature Granulocyte % (Auto) 0.7 % Immature Granulocyte # (Auto) 0.12 K/uL Anisocytosis PRESENT Echinocytes 1+ Magnesium Level 1.7 mg/dl (Ade Ramos, PABellC) Assessment and Plan 85 M with recent c diff, presents with weakness that preceded this C diff, abnormal ECG and very mild troponin elevation. Despite treatment with bowel appropriate antibiotics, has had intermittent confusion and now lower blood pressure, has also developed hyperchloremic gap/non gap acidosis Pt has poor progress and 02/19 has lower blood pressure and agrees to make DNR but request to continue treatment. Encephalopathy: 2/2 Metabolic Acidosis and UTI: Wax and Wanes - UA - E coli - Rocephin 1 g daily Diarrhea: - Assessment - finished 10 days Flagyl as outpatient; urology considers possible enlarging bladder tumor influencing sigmoid colon and emptying - Imaging -- CT - evidence of air in bladder possible fistula - no surgical intervention - Repeat C. Diff - negative Hyperchloremic Metabolic Acidosis: - Etiology - fluid losses from diarrhea or intrinsic renal disease; Na WNL and stable - D/C'd fluids and bicarb gtt - continue po bicarb and monitor - lungs with rales and wet sounding cough -- Will continue monitoring as balancing fluid status and need for sodium bicarb in setting of acidosis will be challenging -- Will withhold further diuresis at this time in setting of hypotension - will continue to monitor - Nephrology following - continue bicarb gtt and oral bicarb -- Patient wishes to not pursue dialysis per renal note -- Bicarb po 1300 mg BID Hypotension: - Remains hypotensive but BPs stabilized Bladder CA: Poor Prognosis: - Has not received radiation or chemotherapy due to C. Diff infection BPH: - Uroxatral 10 mg daily and Avodart 0.5 mg daily CAD with Grade I Diastolic Dysfunction: EKG changes and Elevated Trops; Preserved EF - Assessment - patient with evidence of increased congestion with CXR imaging reviewed that shows elevation of interstitium consistent with worsening congestion from 02/19 CXR - Bumex 1 mg x 1 dose (02/20) - ASA 81 mg daily - Cardiology - suggests supply/demand mismatch 2/2 anemia and illness stress Anemia: Iron Deficiency - CT - suggestive of colon abnormality with H/O rectal stricture Hypothyroidism: - Levothyroxine 125 mcg daily Disposition: - Palliative Consult - Discussed with family - focus of comfort measures - request for [place] [facility] - no escalation of care -- Refer to Palliative note - Will observe patient off bicarb gtt and monitor labs in setting of metabolic acidosis - Unfortunately it does not appear his body will compensate and this will be a progressive condition which comfort measures will be beneficial - Will touch base with Dr. Spicer to see if there is palliative options for this patient (Ade Ramos, PA-C) Attending Attestation: Pt seen/examined, chart reviewed, and care plan d/w DEBI Ramos. I agree with the coates components of her documentation. Pt awake/alert during the visit today. Reports he is "excited about watching the presidential inauguration this week." Staff report he continues with dyspnea and fatigue with minimal activity. No appetite. No chest pain or abd pain or pain in other locations. vitals - BPs low/low-normal UOP poor O2 sats acceptable HRs nl gen - looks thin, tired; but awake/alert today neck - no obvious JVD heart - s1, s2, RRR lungs - basilar rales b/l (no change); no increased WOB abd - soft, NT ext - SCDs in place, pulses 2+ b/l; trace-1+ edema b/l labs - Cr 2.2 HCO3 12 a/p: recent encephalopathy, likely metabolic from UTI - resolved e. coli UTI - resolved low-normal BP, likely 2nd to sepsis from UTI - ongoing/intermittent ongoing acidosis, mainly nonanion gap ongoing diarrhea, with c. diff negative, possibly related to compression of sigmoid colon from bladder ca? 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
[2016-02-22] MEDS: ALFUZosin TAB 10 MG TAB PO SCH (20:42)
[2016-02-23] MEDS: LEVOTHYROXINE 125 MCG TAB PO SCH (06:27)
[2016-02-23 06:49] LABS: BUN/CREATININE RATIO 27.4 (10-20); CALCIUM 8.6 mg/dl (8.5-10.1); CREATININE 2.3 mg/dl (0.60-1.40); POTASSIUM 4.6 mmol/L (3.5-5.1)
[2016-02-23 07:48] VITALS: BP 91/54; PULSE 84; TEMP 36.2; O2SAT 96
[2016-02-23] MEDS: AVODART~ORDER AWAITING ACTION SCH ×2 (08:32→23:07)
[2016-02-23] MEDS: SACCHAROMYCES BOUL (FLORASTOR) 250 MG CAP PO SCH (08:35)
[2016-02-23] MEDS: CEROVITE ADV FORMULA TAB PO SCH (08:35)
[2016-02-23] MEDS: PANTOprazole SOD 40 MG TAB PO SCH (08:35)
[2016-02-23] MEDS: SODIUM BICARBONATE 650 MG TAB PO SCH ×3 (08:36→21:36)
[2016-02-23] MEDS: BOOST VANILLA PO SCH ×4 (08:36→20:00)
--- NOTE | 2016-02-23 10:36 | Nephrology Progress Note ---
Nephrology Progress Note Date of Service Feb 23, 2016. Chief Complaint CKD, LEE ANN, multiple electrolyte abnormalities Subjective No acute events overnight. No complaints this morning. Mr. Rodriguez is comfortable. He denied shortness of breath. Goals of care focused on comfort. He is tolerating current medications. Appetite poor. Oral fluid intake decreased Review of Systems A complete review of systems was performed. Pertinent positives are noted above. All other systems are negative. Vital Signs Last 8 Hrs Date Time Temp Pulse Resp B/P Pulse Ox O2 Delivery O2 Flow Rate FiO2 02/23/16 07:48 36.2 84 16 91/54 96 Room Air I & O 24-Hour Column 02/23/16 08:00 Intake Total 536 ml Balance 536 ml Last Recorded Weight Weight (Kilograms): 96.500 Physical Exam General Appearance: WD/WN, no apparent distress Head: normocephalic, atraumatic Eyes: normal inspection, sclerae normal ENT: normal ENT inspection, pharynx normal Neck: supple, no JVD Respiratory/Chest: lungs clear, no respiratory distress, no accessory muscle use, + rales Cardiovascular: regular rate, rhythm, no gallop Abdomen/GI: non tender, soft Extremities/Musculoskelatal: normal inspection, + pedal edema Neurologic/Psych: alert, oriented x 3 Social History Smokeless Tobacco Use: No Alcohol Use: none Drug Use: none Marital Status: Housing Status: lives with family Occupation: retired Laboratory Results Past 24 Hours 02/23/16 05:50 Test 02/23/16 05:50 Anion Gap 11.0 mmol/L (3-11) Est Creatinine Clear Calc Drug Dose 29.3 ml/min Estimated GFR () 29.3 Estimated GFR (Non- 25.3 BUN/Creatinine Ratio 27.4 (10-20) Calcium Level 8.6 mg/dl (8.5-10.1) Allergies Coded Allergies: No Known Allergies (Unverified , 02/16/16) Medications Current Inpatient Medications Medications (Trade) Dose Ordered Sig/Lizbeth Route Start Time Stop Time Status Last Admin Dose Admin Acetaminophen (Tylenol Tab) 650 mg Q4H PRN PO 02/17/16 01:00 03/18/16 00:59 Zolpidem Tartrate (Ambien Tab) 5 mg HSZ PRN PO 02/17/16 01:00 03/18/16 00:59 Ondansetron HCl (Zofran Inj) 4 mg Q6H PRN IV 02/17/16 01:15 03/18/16 01:14 Alfuzosin HCl (Uroxatral Tab) 10 mg QPM PO 02/17/16 21:00 03/18/16 20:59 02/22/16 20:42 10 MG Levothyroxine Sodium (Synthroid Tab) 125 mcg DAILYBB PO 02/17/16 06:00 03/18/16 05:59 02/23/16 06:27 125 MCG Multivitamins/ Minerals (Multivitamin W/ Minerals Tab) 1 tab QAM PO 02/17/16 09:00 03/18/16 08:59 02/23/16 08:35 1 TAB Miscellaneous Information (Order Awaiting Action) 1 ea QS N/A 02/17/16 08:00 03/18/16 07:59 Pantoprazole Sodium (Protonix Tab) 40 mg QAM PO 02/17/16 09:00 03/18/16 08:59 02/23/16 08:35 40 MG Cholestyramine Resin (Questran Powder Light) 4 gm BID@1000,2200 PO 02/17/16 10:00 03/18/16 09:59 02/22/16 10:04 4 GM Loperamide HCl (Imodium Cap) 2 mg UD PRN PO 02/17/16 10:30 03/18/16 10:29 02/19/16 22:12 2 MG Enteral Nutritional Formula (Boost) 1 can BID PO 02/17/16 21:00 03/18/16 20:59 02/23/16 08:36 1 CAN Saccharomyces Boulardii (Florastor Cap) 250 mg DAILY PO 02/18/16 09:00 03/19/16 08:59 02/23/16 08:35 250 MG Morphine Sulfate (MoRPHine SULFATE INJ) 4 mg Q4H PRN IV 02/20/16 17:45 03/05/16 17:44 Morphine Sulfate (MoRPHine SULFATE INJ) 2 mg Q4H PRN IV 02/20/16 17:45 03/05/16 17:44 Lorazepam (Ativan Inj) 0.5 mg Q4H PRN IV 02/20/16 17:45 03/21/16 17:44 Lorazepam 1 mg 1 mg Q4H PRN IV 02/20/16 17:45 03/21/16 17:44 Lorazepam 1 mg/ Syringe 1 ml @ 1 mls/min Q4H PRN IV 02/20/16 18:00 03/21/16 17:59 Lorazepam 0.5 mg/ Syringe 1 ml @ 1 mls/min Q4H PRN IV 02/20/16 18:00 03/21/16 17:59 Ceftriaxone Sodium/Dextrose (Rocephin Inj/ Dextrose Add-[place] 50ML) 50 ml @ 100 mls/hr DAILY@1700 IV 02/21/16 17:00 03/02/16 16:59 02/22/16 16:25 100 MLS/HR Sodium Bicarbonate (Sodium Bicarbonate Tab) 1,300 mg TID PO 02/22/16 14:00 03/23/16 13:59 02/23/16 08:36 1,300 MG Impression (1) Metabolic acidosis (2) Hypernatremia (3) Hypokalemia (4) CKD (chronic kidney disease) stage 4, GFR 15-29 ml/min (5) Nephrolithiasis (6) Bladder cancer 85-year-old gentlemen with recurrent bladder cancer causing renal impairment with bilateral hydronephrosis. Baseline creatinine has been around 2-2.5, on admission creatinine was slightly elevated from baseline which improved and currently staying around 2.1-2.2. Presented with diarrhea for last 3 weeks with poor p.o. intake. Admitted to the hospital with generalized weakness and ohypernatremia, hypokalemia and gap and non gap metabolic acidosis secondary to GI loss of potassium and bicarb as well as poor p.o. intake. Blood pressure and volume status have improved. Mr. Rodriguez remains very lethargic with decreased oral intake. Mr. Rodrgiuez has made it clear that dialysis will not be considered in the treatment plan. He had previously communicated this during outpatient visits and stated his goals of care again today. We will continue bicarbonate replacement. Monitoring electrolytes only if consistent with patient and family 's goals regarding palliative management. Encourage nutrition. NaHCO3 replacement 1300 BID. Recommendations -- NaHCO3 1300 BID -- Monitor labs if consistent with goals of care -- Encourage nutrition and enable access to free water -- Diuretics as needed for fluid retention
[2016-02-23] MEDS: CHOLESTYRAMINE LIGHT 4 GM PKT PO SCH ×2 (11:34→21:37)
--- NOTE | 2016-02-23 15:01 | Palliative Care Progress Note ---
Palliative Care Progress Note Date of Service Feb 23, 2016. Subjective Pt evaluation today including: conversation w/ family Patient sleeping when I was in room. Did not wake per family's request. stated that he has been comfortable today with no complaints, but a little more somnolent. Assessment and Plan Problem list: Confusion/altered mental status- metabolic encephalopathy Weakness Hyperchloremic metabolic acidosis E. coli UTI- possible bowel/bladder fistula? Hypotension Bladder CA BPH CAD, EF 50-55% Anemia Goals of care (Z51.5) Palliative care plan: Waiting to hear back from [facility] for potential discharge. POLST form explained to patient's and son. Filled out as follows: DNR/DNI, comfort measures only, limited use of PO antibiotics only if patient awake and able to swallow with comfort as the goal, and no IVF or artificial nutrition by tube. Thank you kindly for this consult, please contact me if there are any further palliative care needs. Palliative Performance Scale: 40 %
[2016-02-23] MEDS ORDERED: NURSING DECISION MEDICATION ORDER SCH (15:15)
[2016-02-23] MEDS ORDERED: MICONAZOLE NITRATE POWDER 43 GM EXT PRN (15:15)
--- NOTE | 2016-02-23 15:20 | Progress Note ---
Subjective Date of Service: Feb 23, 2016. (Ade Ramos PA-C) Subjective Pt evaluation today including: conversation w/ patient, physical exam, chart review, lab review, review of studies, review of inpatient medication list Patient seen and evaluated. Moved to 4th floor yesterday. Patient is mostly resting with eyes closed but awakens easily and answers questions. Verbalizes no current complaints and denies pain or SOB. Intake generally poor. Does not appear in distress. Plan for emphasis on comfort measures. Can place Canela catheter for comfort measures to reduce need to frequent bed/ gown changes from incontinence. (Ade Ramos PA-C) Problem List Medical Problems: (1) Complication of catheter Status: Acute (2) Canela catheter problem Status: Acute (3) Weakness Status: Acute (Ade Ramos PA-C) Review of Systems ROS deferred in setting of lethargy. See HPI. (Ade Ramos PA-C) Medications Current Inpatient Medications Medications (Trade) Dose Ordered Sig/Lizbeth Route Start Time Stop Time Status Last Admin Dose Admin Acetaminophen (Tylenol Tab) 650 mg Q4H PRN PO 02/17/16 01:00 03/18/16 00:59 Zolpidem Tartrate (Ambien Tab) 5 mg HSZ PRN PO 02/17/16 01:00 03/18/16 00:59 Ondansetron HCl (Zofran Inj) 4 mg Q6H PRN IV 02/17/16 01:15 03/18/16 01:14 Alfuzosin HCl (Uroxatral Tab) 10 mg QPM PO 02/17/16 21:00 03/18/16 20:59 02/22/16 20:42 10 MG Levothyroxine Sodium (Synthroid Tab) 125 mcg DAILYBB PO 02/17/16 06:00 03/18/16 05:59 02/23/16 06:27 125 MCG Multivitamins/ Minerals (Multivitamin W/ Minerals Tab) 1 tab QAM PO 02/17/16 09:00 03/18/16 08:59 02/23/16 08:35 1 TAB Miscellaneous Information (Order Awaiting Action) 1 ea QS N/A 02/17/16 08:00 03/18/16 07:59 Pantoprazole Sodium (Protonix Tab) 40 mg QAM PO 02/17/16 09:00 03/18/16 08:59 02/23/16 08:35 40 MG Cholestyramine Resin (Questran Powder Light) 4 gm BID@1000,2200 PO 02/17/16 10:00 03/18/16 09:59 02/23/16 11:34 4 GM Loperamide HCl (Imodium Cap) 2 mg UD PRN PO 02/17/16 10:30 03/18/16 10:29 02/19/16 22:12 2 MG Enteral Nutritional Formula (Boost) 1 can BID PO 02/17/16 21:00 03/18/16 20:59 02/23/16 08:36 1 CAN Saccharomyces Boulardii (Florastor Cap) 250 mg DAILY PO 02/18/16 09:00 03/19/16 08:59 02/23/16 08:35 250 MG Morphine Sulfate (MoRPHine SULFATE INJ) 4 mg Q4H PRN IV 02/20/16 17:45 03/05/16 17:44 Morphine Sulfate (MoRPHine SULFATE INJ) 2 mg Q4H PRN IV 02/20/16 17:45 03/05/16 17:44 Lorazepam (Ativan Inj) 0.5 mg Q4H PRN IV 02/20/16 17:45 03/21/16 17:44 Lorazepam 1 mg 1 mg Q4H PRN IV 02/20/16 17:45 03/21/16 17:44 Lorazepam 1 mg/ Syringe 1 ml @ 1 mls/min Q4H PRN IV 02/20/16 18:00 03/21/16 17:59 Lorazepam 0.5 mg/ Syringe 1 ml @ 1 mls/min Q4H PRN IV 02/20/16 18:00 03/21/16 17:59 Ceftriaxone Sodium/Dextrose (Rocephin Inj/ Dextrose Add-[place] 50ML) 50 ml @ 100 mls/hr DAILY@1700 IV 02/21/16 17:00 03/02/16 16:59 02/22/16 16:25 100 MLS/HR Sodium Bicarbonate (Sodium Bicarbonate Tab) 1,300 mg TID PO 02/22/16 14:00 03/23/16 13:59 02/23/16 08:36 1,300 MG (Ade Ramos PA-C) Objective Vital Signs Date Time Temp Pulse Resp B/P Pulse Ox O2 Delivery O2 Flow Rate FiO2 02/23/16 07:48 36.2 84 16 91/54 96 Room Air 02/23/16 00:00 Nasal Cannula 2.0 02/22/16 23:17 36.4 83 16 91/53 97 Nasal Cannula 2.0 02/22/16 20:00 Nasal Cannula 2.0 02/22/16 20:00 36.6 93 20 77/56 95 Room Air 02/22/16 16:00 99 Nasal Cannula 2.0 02/22/16 15:31 36.8 70 18 90/52 95 02/22/16 12:00 99 Nasal Cannula 2.0 02/22/16 12:00 36.4 86 18 77/54 99 Nasal Cannula 2.0 (Ade Ramos PA-C) Physical Exam General Appearance: WD/WN, no apparent distress ENT: hearing grossly normal Neck: supple, no JVD, trachea midline Respiratory/Chest: no respiratory distress, no accessory muscle use, + rales Cardiovascular: regular rate, rhythm, no gallop, no murmur Abdomen: normal bowel sounds, non tender, soft Extremities: + pedal edema Neurologic/Psychiatric: alert, + disoriented Skin: normal color, warm/dry (Ade Ramos PA-C) Laboratory Results Last 24 Hours Test 02/23/16 05:50 Sodium Level 145 mmol/L Potassium Level 4.6 mmol/L Chloride Level 122 mmol/L Carbon Dioxide Level 12 mmol/L Anion Gap 11.0 mmol/L Blood Urea Nitrogen 63 mg/dl Creatinine 2.30 mg/dl Est Creatinine Clear Calc Drug Dose 29.3 ml/min Estimated GFR () 29.3 Estimated GFR (Non- 25.3 BUN/Creatinine Ratio 27.4 Random Glucose 84 mg/dl Calcium Level 8.6 mg/dl (Ade Ramos PA-C) Assessment and Plan 85 M with recent c diff, presents with weakness that preceded this C diff, abnormal ECG and very mild troponin elevation. Despite treatment with bowel appropriate antibiotics, has had intermittent confusion and now lower blood pressure, has also developed hyperchloremic gap/non gap acidosis Pt has poor progress and 02/19 has lower blood pressure and agrees to make DNR but request to continue treatment. Encephalopathy: 2/2 Metabolic Acidosis and E. Coli UTI: Wax and Wanes - Rocephin 1 g daily Diarrhea: - Assessment - finished 10 days Flagyl as outpatient; urology considers possible enlarging bladder tumor influencing sigmoid colon and emptying - Repeat C. Diff - negative Hyperchloremic Metabolic Acidosis: - Etiology - fluid losses from diarrhea or intrinsic renal disease; Na WNL and stable - D/C'd fluids and bicarb gtt - continue po bicarb and monitor - lungs with rales and wet sounding cough -- Will continue monitoring as balancing fluid status and need for sodium bicarb in setting of acidosis will be challenging -- Will withhold further diuresis at this time in setting of hypotension - will continue to monitor -- Emphasize comfort measures and will allow patient to take pills as he can - Nephrology following -- Patient wishes to not pursue dialysis per renal note -- Bicarb po 1300 mg BID Hypotension: - Remains hypotensive but BPs stabilized Bladder CA: Poor Prognosis: - Has not received radiation or chemotherapy due to C. Diff infection BPH: - Uroxatral 10 mg daily and Avodart 0.5 mg daily CAD with Grade I Diastolic Dysfunction: EKG changes and Elevated Trops; Preserved EF - Assessment - patient with evidence of increased congestion with CXR imaging reviewed that shows elevation of interstitium consistent with worsening congestion from 02/19 CXR - Bumex 1 mg x 1 dose (02/20) - ASA 81 mg daily - Cardiology - suggests supply/demand mismatch 2/2 anemia and illness stress Comfort Measures: - IV pain meds and Ativan as needed - Scopolamine patch for secretion control - Allow patient to take medications as tolerated - Feeding as tolerated - comfort feedings Disposition: - Palliative Consult - Discussed with family - focus of comfort measures - request for [facility] - no escalation of care -- Refer to Palliative note - Will observe patient off bicarb gtt and monitor labs in setting of metabolic acidosis - Unfortunately it does not appear his body will compensate and this will be a progressive condition which comfort measures will be beneficial - Will be medically suitable for discharge to [facility] with Palliative Care when arrangements made (Ade Ramos, HENRYC) Attending Attestation: Pt seen/examined, chart reviewed, and care plan d/w DEBI Ramos. I agree with the coates components of her documentation. Pt quite sleepy/tired during my visit; family reports this has been typical for today. He offers no complaints of pain. vitals - BPs low, o2 sats nl gen - sleepy but follows commands & answers questions heart - RRR, s1, s2 lungs - mild rales bases abd - soft, NT ext - mild edema A/P: Progressive stage 4 bladder cancer, recent c diff colitis, CKD stage 4, mixed acidosis state, UTI, and failure to thrive. Plan - place canela for palliative purposes dispo planning - [place] for palliation d/c all labs family updated Homero SANDOVAL MD (Shaun Sandoval MD)
[2016-02-23] MEDS: SCOPOLAMINE 1.5 MG TDSY TD SCH (15:30)
[2016-02-23] MEDS: CHECK SCOPOLAMINE PATCH PLACEMENT SCH ×2 (16:00→23:08)
[2016-02-23] MEDS: CEFTRIAXONE SOD INJ 1 GM in DEXTROSE 5% ADD-VANTAGE 50ML 50 ML IV SCH (17:34)
[2016-02-23] MEDS: ALFUZosin TAB 10 MG TAB PO SCH (21:36)
[2016-02-24] MEDS: AVODART~ORDER AWAITING ACTION SCH ×4 (05:26→23:16)
[2016-02-24] MEDS: LEVOTHYROXINE 125 MCG TAB PO SCH (05:32)
[2016-02-24 07:43] VITALS: BP 87/51; PULSE 84; TEMP 36.3; O2SAT 97
[2016-02-24] MEDS: SACCHAROMYCES BOUL (FLORASTOR) 250 MG CAP PO SCH (08:42)
[2016-02-24] MEDS: PANTOprazole SOD 40 MG TAB PO SCH (08:42)
[2016-02-24] MEDS: CEROVITE ADV FORMULA TAB PO SCH (08:43)
[2016-02-24] MEDS: SODIUM BICARBONATE 650 MG TAB PO SCH ×3 (08:43→19:50)
[2016-02-24] MEDS: CHECK SCOPOLAMINE PATCH PLACEMENT SCH ×3 (08:43→23:16)
[2016-02-24] MEDS: BOOST VANILLA PO SCH ×4 (08:44→19:50)
[2016-02-24] MEDS: CHOLESTYRAMINE LIGHT 4 GM PKT PO SCH ×2 (10:31→19:50)
--- NOTE | 2016-02-24 13:59 | Progress Note ---
Subjective Date of Service: Feb 24, 2016. (Ade Ramos PA-C) Subjective Pt evaluation today including: conversation w/ patient, physical exam, review of inpatient medication list Patient seen and evaluated. Keeps eyes mostly closed but will answer simple questions. Verbalizes no complaints. Reports that he ate a good amount of breakfast however tray looks minimally touched. He does not appear in any distress and denies any pain or SOB. Comfort measures as goal and plans to D/C to [place] [place] [facility] with Palliative Care (Ade Ramos PA-C) Problem List Medical Problems: (1) Complication of catheter Status: Acute (2) Ferreira catheter problem Status: Acute (3) Weakness Status: Acute (Ade Ramos PA-C) Review of Systems ROS largely deferred as patient is lethargic and comfort measures. (Ade Ramos PA-C) Objective Vital Signs Date Time Temp Pulse Resp B/P Pulse Ox O2 Delivery O2 Flow Rate FiO2 02/24/16 08:30 Room Air 02/24/16 07:43 36.3 84 16 87/51 97 Room Air 02/24/16 00:00 Room Air 02/23/16 16:00 Room Air (Ade Ramos PA-C) Physical Exam General Appearance: no apparent distress, + thin ENT: hearing grossly normal Neck: supple, no JVD, trachea midline Respiratory/Chest: no respiratory distress, no accessory muscle use, + decreased breath sounds Cardiovascular: regular rate, rhythm, no gallop, no murmur Abdomen: normal bowel sounds, soft Neurologic/Psychiatric: + pertinent finding (Somnolent) (Ade Ramos PA-C) Assessment and Plan 85 M with recent c diff, presents with weakness that preceded this C diff, abnormal ECG and very mild troponin elevation. Despite treatment with bowel appropriate antibiotics, has had intermittent confusion and now lower blood pressure, has also developed hyperchloremic gap/non gap acidosis and UTI Pt has poor progress and 1/15 has lower blood pressure and agrees to make DNR but request to continue treatment. Encephalopathy: 2/2 Metabolic Acidosis and E. Coli UTI: Wax and Wanes - Assessment - over past couple days patient is more lethargic and mostly rests in bed with eyes closed - D/C'd antibiotics at this time Diarrhea: - Assessment - finished 10 days Flagyl as outpatient; urology considers possible enlarging bladder tumor influencing sigmoid colon and emptying - Repeat C. Diff - negative Hyperchloremic Metabolic Acidosis: - Etiology - fluid losses from diarrhea or intrinsic renal disease - no further lab draws - D/C'd fluids and bicarb gtt - continue po bicarb and monitor -- Emphasize comfort measures and will allow patient to take pills as he can - Nephrology following Hypotension: - Remains hypotensive but BPs stabilized Bladder CA: Poor Prognosis: - Has not received radiation or chemotherapy due to C. Diff infection BPH: - Uroxatral 10 mg daily and Avodart 0.5 mg daily CAD with Grade I Diastolic Dysfunction: EKG changes and Elevated Trops; Preserved EF - Cardiology - suggests supply/demand mismatch 2/2 anemia and illness stress Comfort Measures: - IV pain meds and Ativan as needed - Scopolamine patch for secretion control - Allow patient to take medications as tolerated - Feeding as tolerated - comfort feedings Disposition: - Palliative Consult - Discussed with family - focus of comfort measures - request for [facility] - no escalation of care -- Refer to Palliative note - Will be medically suitable for discharge to [facility] with Palliative Care when arrangements made (Ade Ramos, PA-C) Attending Attestation: Pt seen/examined, chart reviewed, and care plan d/w DEBI Ramos. I agree w/ the coates components of her documentation. Pt very tired this am but I am able to have an entire conversation. Denies any complaints except for fatigue. 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 Plan - palliative care at [facility]. SW involved in dispo planning - hopefully d/c to SNF tomorrow. Homero SANDOVAL MD (Shaun Sandoval MD)
[2016-02-24 15:31] VITALS: BP 92/57; PULSE 92; TEMP 36.3; O2SAT 98
[2016-02-24] MEDS: ALFUZosin TAB 10 MG TAB PO SCH (19:50)
[2016-02-25] MEDS: LEVOTHYROXINE 125 MCG TAB PO SCH (05:45)
[2016-02-25 07:55] VITALS: BP_SYST 86; BP_SYST 88; BP_DIAS 46; BP_DIAS 55; PULSE 78; TEMP 36.4; O2SAT 96
[2016-02-25] MEDS: CHECK SCOPOLAMINE PATCH PLACEMENT SCH ×2 (08:45→15:27)
[2016-02-25] MEDS: SODIUM BICARBONATE 650 MG TAB PO SCH ×3 (08:46→19:27)
[2016-02-25] MEDS: CEROVITE ADV FORMULA TAB PO SCH (08:46)
[2016-02-25] MEDS: SACCHAROMYCES BOUL (FLORASTOR) 250 MG CAP PO SCH (08:46)
[2016-02-25] MEDS: BOOST VANILLA PO SCH ×4 (08:46→19:28)
[2016-02-25] MEDS: AVODART~ORDER AWAITING ACTION SCH ×2 (08:47→15:28)
[2016-02-25] MEDS: PANTOprazole SOD 40 MG TAB PO SCH (08:47)
[2016-02-25] MEDS: CHOLESTYRAMINE LIGHT 4 GM PKT PO SCH ×2 (10:58→19:28)
--- NOTE | 2016-02-25 14:23 | Hospitalist Progress Note ---
Hospitalist Progress Note Date of Service Feb 25, 2016. (Katie Yang ., PA-C) Subjective Pt evaluation today including: conversation w/ patient, conversation w/ family , physical exam, chart review, lab review, review of inpatient medication list Voiding: canela catheter in place (draining yellow urine ) Patient states he is feeling good today. He was able to sit at the bedside and stand for a short period of time with OT today. Tolerating diet well. Continues to eat and drink- per ate a decent amount for lunch today. Patient denies any complaints or concerns. No pain. (Katie Yang ., DEBI-C) Medications Current Inpatient Medications Medications (Trade) Dose Ordered Sig/Lizbeth Route Start Time Stop Time Status Last Admin Dose Admin Acetaminophen (Tylenol Tab) 650 mg Q4H PRN PO 02/17/16 01:00 03/18/16 00:59 Zolpidem Tartrate (Ambien Tab) 5 mg HSZ PRN PO 02/17/16 01:00 03/18/16 00:59 Ondansetron HCl (Zofran Inj) 4 mg Q6H PRN IV 02/17/16 01:15 03/18/16 01:14 Alfuzosin HCl (Uroxatral Tab) 10 mg QPM PO 02/17/16 21:00 03/18/16 20:59 02/24/16 19:50 10 MG Levothyroxine Sodium (Synthroid Tab) 125 mcg DAILYBB PO 02/17/16 06:00 03/18/16 05:59 02/25/16 05:45 125 MCG Multivitamins/ Minerals (Multivitamin W/ Minerals Tab) 1 tab QAM PO 02/17/16 09:00 03/18/16 08:59 02/25/16 08:46 1 TAB Miscellaneous Information (Order Awaiting Action) 1 ea QS N/A 02/17/16 08:00 03/18/16 07:59 Pantoprazole Sodium (Protonix Tab) 40 mg QAM PO 02/17/16 09:00 03/18/16 08:59 02/25/16 08:47 40 MG Cholestyramine Resin (Questran Powder Light) 4 gm BID@1000,2200 PO 02/17/16 10:00 03/18/16 09:59 02/25/16 10:58 4 GM Loperamide HCl (Imodium Cap) 2 mg UD PRN PO 02/17/16 10:30 03/18/16 10:29 02/19/16 22:12 2 MG Enteral Nutritional Formula (Boost) 1 can BID PO 02/17/16 21:00 03/18/16 20:59 02/25/16 08:46 1 CAN Saccharomyces Boulardii (Florastor Cap) 250 mg DAILY PO 02/18/16 09:00 03/19/16 08:59 02/25/16 08:46 250 MG Morphine Sulfate (MoRPHine SULFATE INJ) 4 mg Q4H PRN IV 02/20/16 17:45 03/05/16 17:44 Morphine Sulfate (MoRPHine SULFATE INJ) 2 mg Q4H PRN IV 02/20/16 17:45 03/05/16 17:44 Lorazepam (Ativan Inj) 0.5 mg Q4H PRN IV 02/20/16 17:45 03/21/16 17:44 Lorazepam 1 mg 1 mg Q4H PRN IV 02/20/16 17:45 03/21/16 17:44 Lorazepam 1 mg/ Syringe 1 ml @ 1 mls/min Q4H PRN IV 02/20/16 18:00 03/21/16 17:59 Lorazepam/Syringe (Ativan Inj/ Syringe) 1 ml @ 1 mls/min Q4H PRN IV 02/20/16 18:00 03/21/16 17:59 Sodium Bicarbonate (Sodium Bicarbonate Tab) 1,300 mg TID PO 02/22/16 14:00 03/23/16 13:59 02/25/16 14:29 1,300 MG Miconazole Nitrate (Desenex Powder) 1 appln PRN PRN EXT 02/23/16 15:15 03/24/16 15:14 Scopolamine (Transderm-Scop Patch) 1.5 mg Q3D@0900 TD 02/23/16 15:30 03/24/16 15:29 Miscellaneous (Remove Transderm-Scop Patch) 1 ea Q3D@0859 N/A 02/23/16 15:29 03/24/16 15:28 Miscellaneous Information (Check Scopolamine Patch Placement) 1 ea QS N/A 02/23/16 16:00 03/24/16 15:59 (Katie Yang, PA-C) Objective Vital Signs Date Time Temp Pulse Resp B/P Pulse Ox O2 Delivery O2 Flow Rate FiO2 02/25/16 08:30 Room Air 02/25/16 07:55 36.4 78 18 86/46 96 88/55 02/24/16 23:50 Room Air 02/24/16 16:00 Room Air 02/24/16 15:31 36.3 92 18 92/57 98 Room Air (Katie Yang, PA-C) Physical Exam General Appearance: no apparent distress, + thin Eyes: PERRL ENT: hearing grossly normal Neck: supple Respiratory/Chest: no respiratory distress, no accessory muscle use, + decreased breath sounds Cardiovascular: regular rate, rhythm Abdomen: normal bowel sounds, non tender, soft Neurologic/Psychiatric: alert Skin: warm/dry, no rash (Katie Yang, DEBI-C) Assessment and Plan 85 M with recent c diff, presents with weakness that preceded this C diff, abnormal ECG and very mild troponin elevation. Despite treatment with bowel appropriate antibiotics, has had intermittent confusion and now lower blood pressure, has also developed hyperchloremic gap/non gap acidosis and UTI Pt has poor progress and 02/19 has lower blood pressure and agrees to make DNR but request to continue treatment. Encephalopathy: 2/2 Metabolic Acidosis and E. Coli UTI: Wax and Wanes - D/C'd antibiotics Diarrhea: - Assessment - finished 10 days Flagyl as outpatient; urology considers possible enlarging bladder tumor influencing sigmoid colon and emptying - Repeat C. Diff - negative Hyperchloremic Metabolic Acidosis: - Etiology - fluid losses from diarrhea or intrinsic renal disease - no further lab draws - D/C'd fluids and bicarb gtt - continue po bicarb and monitor -- Emphasize comfort measures and will allow patient to take pills as he can - Nephrology following Hypotension: - Remains hypotensive but BPs stabilized Bladder CA: Poor Prognosis: - Has not received radiation or chemotherapy due to C. Diff infection BPH: - Uroxatral 10 mg daily and Avodart 0.5 mg daily CAD with Grade I Diastolic Dysfunction: EKG changes and Elevated Trops; Preserved EF - Cardiology - suggests supply/demand mismatch 2/2 anemia and illness stress Comfort Measures: - IV pain meds and Ativan as needed - Scopolamine patch for secretion control - Allow patient to take medications as tolerated - Feeding as tolerated - comfort feedings Disposition: - Palliative Consult - Discussed with family - focus of comfort measures - request for [facility] - no escalation of care -- Refer to Palliative note - Will be medically suitable for discharge to [facility] with Palliative Care when arrangements made (Katie Yang ., PA-C) Attending Attestation: Pt seen/examined, chart reviewed, care plan d/c DEBI Yang. I agree w/ the coates components of her progress note. No new events overnight. Pt resting comfortably in bed. Has had a cough today. Ate decently per . Watching the inauguration. VSS no fever gen - NAD, weak appearing mouth - MMM heart - RRR lungs - decreased BS bases abd - softly distended, BS+, NT ext - no edema today A/P: Progressive stage 4 bladder cancer with CKD stage 4, recent c. diff colitis, persistent metabolic acidosis, failure to thrive. Awaiting SNF placement for palliative care. Cont palliative care pathway while awaiting transfer to [facility]. Homero SANDOVAL MD (Shuan Sandoval MD)
[2016-02-25] MEDS: BENZONATATE 100MG CAP PO SCH ×2 (15:27→19:28)
[2016-02-25 15:52] VITALS: BP 102/66; PULSE 78; TEMP 36.3; O2SAT 99
[2016-02-25] MEDS: ALFUZosin TAB 10 MG TAB PO SCH (19:28)
[2016-02-26 00:12] VITALS: BP 92/54; PULSE 84; TEMP 36.6; O2SAT 95
[2016-02-26] MEDS: CHECK SCOPOLAMINE PATCH PLACEMENT SCH ×4 (00:39→23:14)
[2016-02-26] MEDS: AVODART~ORDER AWAITING ACTION SCH ×4 (00:42→23:15)
[2016-02-26] MEDS: LEVOTHYROXINE 125 MCG TAB PO SCH (05:58)
[2016-02-26 07:26] VITALS: BP 104/64; PULSE 75; TEMP 36.5; O2SAT 99
[2016-02-26 08:00] VITALS: O2SAT 99
[2016-02-26] MEDS: BOOST VANILLA PO SCH ×4 (08:00→20:01)
[2016-02-26] MEDS: SCOPOLAMINE 1.5 MG TDSY TD SCH (08:34)
[2016-02-26] MEDS: CEROVITE ADV FORMULA TAB PO SCH (08:35)
[2016-02-26] MEDS: PANTOprazole SOD 40 MG TAB PO SCH (08:35)
[2016-02-26] MEDS: SACCHAROMYCES BOUL (FLORASTOR) 250 MG CAP PO SCH (08:36)
[2016-02-26] MEDS: BENZONATATE 100MG CAP PO SCH ×3 (08:36→19:59)
[2016-02-26] MEDS: SODIUM BICARBONATE 650 MG TAB PO SCH ×3 (08:37→20:01)
[2016-02-26] MEDS: CHOLESTYRAMINE LIGHT 4 GM PKT PO SCH ×2 (10:00→22:00)
[2016-02-26 15:06] VITALS: BP 95/60; PULSE 78; TEMP 36.5; O2SAT 98
[2016-02-26 16:04] VITALS: O2SAT 98
[2016-02-26] MEDS: ALFUZosin TAB 10 MG TAB PO SCH (20:00)
[2016-02-27 00:05] VITALS: BP 93/52; PULSE 79; TEMP 36.6; O2SAT 97
[2016-02-27] MEDS: LEVOTHYROXINE 125 MCG TAB PO SCH (06:14)
[2016-02-27 07:27] VITALS: BP 94/58; PULSE 81; TEMP 36.5; O2SAT 96
[2016-02-27 08:00] VITALS: O2SAT 96
[2016-02-27] MEDS: CHECK SCOPOLAMINE PATCH PLACEMENT SCH ×2 (08:00→16:00)
--- NOTE | 2016-02-27 08:53 | Progress Note ---
Progress Note Hospitalist Progress note: late entry for visit on 02/26/16 at 1630 Date of this note: 02/27/16 Time of this note: 0850 S: No new events overnight. Pt resting comfortably in bed. Cough continues despite tessalon pearles. Slept most of day per . Ate a hot dog and pizza! O: BPs low or low normal HR/RR/O2 sats normal no fever gen - NAD, weak appearing, but awake/alert/oriented and in good spirits today mouth - MMM heart - RRR, s1 s2 lungs - decreased BS bases o/w CTA b/l abd - softly distended, BS+, NT, no HSM ext - no edema today; pulses 2+ b/l; stasis changes b/l legs A/P: Progressive stage 4 bladder cancer with CKD stage 4, recent c. diff colitis, persistent metabolic acidosis, recent UTI, failure to thrive. Awaiting SNF placement for palliative care. Cont palliative care pathway while awaiting transfer to [facility] on Sunday. Had had diarrhea earlier this week; now no stool in several days and now with mild abd distension. Fortunately asymptomatic from such. If any worsening then abd x-ray. Family updated today. Shaun Sandoval MD
[2016-02-27] MEDS: SACCHAROMYCES BOUL (FLORASTOR) 250 MG CAP PO SCH (08:55)
[2016-02-27] MEDS: SODIUM BICARBONATE 650 MG TAB PO SCH ×3 (08:55→19:58)
[2016-02-27] MEDS: BENZONATATE 100MG CAP PO SCH ×3 (08:56→19:58)
[2016-02-27] MEDS: PANTOprazole SOD 40 MG TAB PO SCH (08:56)
[2016-02-27] MEDS: CEROVITE ADV FORMULA TAB PO SCH (08:56)
[2016-02-27] MEDS: BOOST VANILLA PO SCH ×4 (08:57→19:56)
[2016-02-27] MEDS: CHOLESTYRAMINE LIGHT 4 GM PKT PO SCH ×2 (10:44→22:00)
[2016-02-27 15:37] VITALS: BP 105/66; PULSE 77; TEMP 36.6; O2SAT 98
[2016-02-27 16:00] VITALS: O2SAT 98
[2016-02-27] MEDS: AVODART~ORDER AWAITING ACTION SCH (16:00)
[2016-02-27] MEDS: ALFUZosin TAB 10 MG TAB PO SCH (19:59)
--- NOTE | 2016-02-27 23:27 | Progress Note ---
Progress Note Hospitalist Progress note: Date of this note: 02/27/16 Time of this note: 2315 S: No new events overnight. Pt resting comfortably in bed. Denies abd pain. Passing flatus/stool; no diarrhea. Denies sob. Denies chest pain. Anxious about transfer to [facility] tomorrow. O: Vitals unchanged, afebrile gen - NAD, awake/alert/oriented and again in good spirits today mouth - MMM heart - RRR, s1 s2 lungs - decreased BS bases o/w CTA b/l abd - softly distended, BS+, NT, no HSM, ?fullness/masses b/l lower quadrants?? ext - no edema today; pulses 2+ b/l; stasis changes b/l legs A/P: Progressive stage 4 bladder cancer with CKD stage 4, recent c. diff colitis, persistent metabolic acidosis, recent UTI, failure to thrive. Cont palliative care pathway while awaiting transfer to [facility] on Sunday. Reassurance given to him that it is normal to be anxious about leaving the hospital. Support given. Family updated today. I wished him well. Shaun Sandoval MD
[2016-02-28 00:16] VITALS: BP 97/58; PULSE 80; TEMP 36.9; O2SAT 95
[2016-02-28] MEDS: CHECK SCOPOLAMINE PATCH PLACEMENT SCH ×3 (00:33→15:49)
[2016-02-28] MEDS: AVODART~ORDER AWAITING ACTION SCH ×4 (00:34→23:44)
[2016-02-28] MEDS: LEVOTHYROXINE 125 MCG TAB PO SCH (06:16)
[2016-02-28] MEDS ORDERED: Enteral Nutrition Formula PO (07:34)
[2016-02-28] MEDS ORDERED: SACC250C3 PO (07:34)
[2016-02-28] MEDS ORDERED: SODI650T9 PO (07:34)
[2016-02-28] MEDS ORDERED: IMD2X PO (07:34)
[2016-02-28] MEDS ORDERED: BENZ100C7 PO (07:34)
[2016-02-28] MEDS ORDERED: PRT40 PO (07:34)
[2016-02-28 07:41] VITALS: BP 101/76; PULSE 76; TEMP 37; O2SAT 96
[2016-02-28] MEDS: CEROVITE ADV FORMULA TAB PO SCH (08:05)
[2016-02-28] MEDS: SACCHAROMYCES BOUL (FLORASTOR) 250 MG CAP PO SCH (08:06)
[2016-02-28] MEDS: SODIUM BICARBONATE 650 MG TAB PO SCH ×3 (08:06→20:42)
[2016-02-28] MEDS: BENZONATATE 100MG CAP PO SCH ×3 (08:06→20:42)
[2016-02-28] MEDS: PANTOprazole SOD 40 MG TAB PO SCH (08:07)
[2016-02-28] MEDS: BOOST VANILLA PO SCH ×4 (08:07→20:41)
--- NOTE | 2016-02-28 08:50 | Discharge Instructions ---
Discharge Instructions Admission Reason for Admission: Abnormal Ekg, Elevated Troponin I Level (Ade Ramos PA-C) encephalopathy (Riki Yancey M.D.) Discharge Discharge Diagnosis / Problem: Metabolic Acidosis; Diarrhea: Urinary Tract Infection (Ade Ramos PA-C) Discharge Diagnosis / Problem: sepsis from urinary source present on admission (Riki Yancey M.D.) Discharge Goals Goal(s): Decrease discomfort, Improve function, Improve nutritional status (Ade Ramos PA-C) Goal(s): Diagnostic testing, Therapeutic intervention (Riki Yancey M.D.) Activity Recommendations Activity Level: Assistance Required . (Ade Ramos PA-C) Activity Level: Assistance Required Therapies: Physical Therapy, Occupational Therapy, Speech Therapy (Riki Yancey M.D.) Additional Information Patient informed of condition: Yes Advance Directives: Yes DNR: Yes Level of Care: Skilled Communicable Disease: No Prognosis: Improving Ferreira Catheter: Yes (Ade Ramos PA-C) Patient informed of condition: Yes Advance Directives: Yes DNR: Yes Level of Care: Skilled Communicable Disease: Yes Prognosis: Stable (but will move to consider palliative care ) (Riki Yancey M.D.) Instructions / Follow-Up Instructions / Follow-Up Encephalopathy: 2/2 Metabolic Acidosis and E. Coli UTI: IMPROVED - Assessment - improvement in oral intake and is less lethargic - Completed antibiotics during admission for E. Coli bacteria UTI Diarrhea: IMPROVED - Repeat C. Diff - negative during admission - May use Imodium as needed for loose stools - prescription provided - Prescription given for probiotics if tolerable for Mr. Rodriguez Persistent Hyperchloremic Metabolic Acidosis: - Continue bicarbonate tabs as prescribed - prescription provided Cough: IMPROVING - Will give a prescription for Tessalon perles to use as needed for cough Nutrition: - Oral intake of food and drink has improved and will provide prescription for BOOST to use twice a day Hypotension: STABLE - Blood pressure has been low about remained stable during hospitalization Bladder CA: - Consideration for discussion with Dr. Spicer at cancer center for palliative measures in regards to bladder cancer if desired BPH: - Uroxatral 10 mg daily and Avodart 0.5 mg daily CAD with Grade I Diastolic Dysfunction: - Continue Lasix every two days to help with any fluid retention Comfort Measures: - Discussed with palliative care and family to emphasize comfort measures and POLST form completed - DNR/DNI; comfort measures; antibiotics if for comfort only in tolerable by Mr. Rodriguez; no artificial feedings by tubes - Continue home medications as tolerated - Will keep Ferreira catheter in place to prevent discomfort from urinary retention -- Discussed with Mr. Rodriguez as he states in the past he had difficulty using urinal and would get fatigued from frequent changes and moving around Follow-Up: - You may follow-up with your family doctor in 1-2 weeks (Ade Ramos PA-C) Current Hospital Diet Patient's current hospital diet: Regular Diet (Ade Ramos PA-C) Discharge Diet Recommended Diet: Regular Diet (Ade Ramos PA-C) Recommended Diet: Regular Diet (Riki Yancey M.D.) Pending Studies Studies pending at discharge: no (Ade Ramos PA-C) Studies pending at discharge: yes List of pending studies: c diff was tested 02/28 with loose stool and is negartive cxr before discharge was without pneumonia urine re culture was drawn 02/27 (Riki Yancey M.D.) Physician Orders On Transfer POLST Discussion: with POLST completion (Ade Ramos PA-C) Laboratory Results Hemoglobin A1c Test 12/29/15 10:20 Range/Units Estimated Average Glucose 140 mg/dl Hemoglobin A1c 6.5 H 4.5-5.6 % Lipid Panel Test 12/29/15 10:20 Range/Units Triglycerides Level 111 0-150 mg/dl Cholesterol Level 124 0-200 mg/dl HDL Cholesterol 35 mg/dl Cholesterol/HDL Ratio 3.5 LDL Cholesterol, Calculated 67 mg/dl (Ade Ramos PA-C) Medical Emergencies . Who to Call and When: Medical Emergencies: If at any time you feel your situation is an emergency, please call 911 immediately. . (Ade Ramos PA-C) Non-Emergent Contact Non-Emergency issues call your: Primary Care Provider Call Non-Emergent contact if: you have a fever, your pain is concerning you, you have any medication questions . (Ade Ramos, RAMIRO) . "Provider Documentation" section prepared by Ade Ramos. (Ade Ramos, HENRYC) Core Measure Problem Core Measures: None (Ade Ramos, RAMIRO)
[2016-02-28] MEDS: CHOLESTYRAMINE LIGHT 4 GM PKT PO SCH ×2 (10:27→20:41)
[2016-02-28 14:18] VITALS: BP 101/76; PULSE 76; TEMP 37; O2SAT 96
--- NOTE | 2016-02-28 16:01 | Progress Note ---
Subjective Date of Service: Feb 28, 2016. (Ade Ramos PA-C) Subjective Pt evaluation today including: conversation w/ patient, physical exam, chart review, review of inpatient medication list Patient seen and evaluated. No acute events or complaints overnight. Verbalizes feeling good today and without discomfort. Discussed canela catheter as being used for comfort measures. He has expressed desire to continue this as he has had retention and difficulty with urination in the past. Is suitable for D/C to [facility] when arrangements confirmed. (Ade Ramos PA-C) Problem List Medical Problems: (1) Complication of catheter Status: Acute (2) Canela catheter problem Status: Acute (3) Weakness Status: Acute (Ade Ramos PA-C) Review of Systems Constitutional: No chills, No fever ENT: No sore throat Respiratory: No cough, No shortness of breath Cardiac: No chest pain Abdomen: No constipation, No diarrhea, No nausea, No pain, No vomiting Musculoskeletal: No calf pain, No swelling (Ade Ramos PA-C) Medications Current Inpatient Medications Medications (Trade) Dose Ordered Sig/Lizbeth Route Start Time Stop Time Status Last Admin Dose Admin Acetaminophen (Tylenol Tab) 650 mg Q4H PRN PO 02/17/16 01:00 03/18/16 00:59 Zolpidem Tartrate (Ambien Tab) 5 mg HSZ PRN PO 02/17/16 01:00 03/18/16 00:59 Ondansetron HCl (Zofran Inj) 4 mg Q6H PRN IV 02/17/16 01:15 03/18/16 01:14 Alfuzosin HCl (Uroxatral Tab) 10 mg QPM PO 02/17/16 21:00 03/18/16 20:59 02/27/16 19:59 10 MG Levothyroxine Sodium (Synthroid Tab) 125 mcg DAILYBB PO 02/17/16 06:00 03/18/16 05:59 02/28/16 06:16 125 MCG Multivitamins/ Minerals (Multivitamin W/ Minerals Tab) 1 tab QAM PO 02/17/16 09:00 03/18/16 08:59 02/28/16 08:05 1 TAB Miscellaneous Information (Order Awaiting Action) 1 ea QS N/A 02/17/16 08:00 03/18/16 07:59 Pantoprazole Sodium (Protonix Tab) 40 mg QAM PO 02/17/16 09:00 03/18/16 08:59 02/28/16 08:07 40 MG Cholestyramine Resin (Questran Powder Light) 4 gm BID@1000,2200 PO 02/17/16 10:00 03/18/16 09:59 02/28/16 10:27 4 GM Loperamide HCl (Imodium Cap) 2 mg UD PRN PO 02/17/16 10:30 03/18/16 10:29 02/19/16 22:12 2 MG Enteral Nutritional Formula (Boost) 1 can BID PO 02/17/16 21:00 03/18/16 20:59 02/28/16 08:07 1 CAN Saccharomyces Boulardii (Florastor Cap) 250 mg DAILY PO 02/18/16 09:00 03/19/16 08:59 02/28/16 08:06 250 MG Morphine Sulfate (MoRPHine SULFATE INJ) 4 mg Q4H PRN IV 02/20/16 17:45 03/05/16 17:44 Morphine Sulfate (MoRPHine SULFATE INJ) 2 mg Q4H PRN IV 02/20/16 17:45 03/05/16 17:44 Lorazepam (Ativan Inj) 0.5 mg Q4H PRN IV 02/20/16 17:45 03/21/16 17:44 Lorazepam 1 mg 1 mg Q4H PRN IV 02/20/16 17:45 03/21/16 17:44 Lorazepam 1 mg/ Syringe 1 ml @ 1 mls/min Q4H PRN IV 02/20/16 18:00 03/21/16 17:59 Lorazepam/Syringe (Ativan Inj/ Syringe) 1 ml @ 1 mls/min Q4H PRN IV 02/20/16 18:00 03/21/16 17:59 Sodium Bicarbonate (Sodium Bicarbonate Tab) 1,300 mg TID PO 02/22/16 14:00 03/23/16 13:59 02/28/16 13:56 1,300 MG Miconazole Nitrate (Desenex Powder) 1 appln PRN PRN EXT 02/23/16 15:15 03/24/16 15:14 Scopolamine (Transderm-Scop Patch) 1.5 mg Q3D@0900 TD 02/23/16 15:30 03/24/16 15:29 Miscellaneous (Remove Transderm-Scop Patch) 1 ea Q3D@0859 N/A 02/23/16 15:29 03/24/16 15:28 Miscellaneous Information (Check Scopolamine Patch Placement) 1 ea QS N/A 02/23/16 16:00 03/24/16 15:59 Benzonatate (Tessalon Perles Cap) 100 mg TID PO 02/25/16 15:00 03/26/16 14:59 02/28/16 13:56 100 MG (Ade Ramos PA-C) Objective Vital Signs Date Time Temp Pulse Resp B/P Pulse Ox O2 Delivery O2 Flow Rate FiO2 02/28/16 14:18 37.0 76 20 96 Room Air 02/28/16 08:10 Room Air 02/28/16 07:41 37.0 76 20 101/76 96 Room Air 02/28/16 00:16 36.9 80 18 97/58 95 Room Air 02/28/16 00:00 Room Air 02/27/16 20:00 Room Air 02/27/16 16:00 98 Room Air (Ade Ramos PA-C) Physical Exam General Appearance: no apparent distress, + thin Eyes: sclerae normal ENT: hearing grossly normal Neck: supple, no JVD, trachea midline Respiratory/Chest: lungs clear, no respiratory distress, no accessory muscle use, + decreased breath sounds (bases bilat) Cardiovascular: regular rate, rhythm, no gallop, no murmur Abdomen: normal bowel sounds, non tender, soft Extremities: no pedal edema, no calf tenderness, + pertinent finding ( bilateral chronic brown discoloration of lower extremities) Neurologic/Psychiatric: alert Skin: normal color, warm/dry (Ade Ramos PA-C) Assessment and Plan 85 M with recent c diff, presents with weakness that preceded this C diff, abnormal ECG and very mild troponin elevation. Despite treatment with bowel appropriate antibiotics, has had intermittent confusion and now lower blood pressure, has also developed hyperchloremic gap/non gap acidosis and UTI Pt has poor progress and 02/19 has lower blood pressure and agrees to make DNR but request to continue treatment. Encephalopathy: 2/2 Metabolic Acidosis and E. Coli UTI: IMPROVED Diarrhea: C. Diff Negative - IMPROVED - Imodium PRN and Probiotic Hyperchloremic Metabolic Acidosis: - Etiology - fluid losses from diarrhea or intrinsic renal disease - no further lab draws - Bicarb po TID Hypotension: STABLE Bladder CA: Poor Prognosis: - Has not received radiation or chemotherapy due to C. Diff infection BPH: - Uroxatral 10 mg daily and Avodart 0.5 mg daily CAD with Grade I Diastolic Dysfunction: EKG changes and Elevated Trops; Preserved EF - Cardiology - suggests supply/demand mismatch 2/2 anemia and illness stress Comfort Measures: - Allow patient to take medications as tolerated - Feeding as tolerated - comfort feedings Disposition: - Palliative Consult - Discussed with family - focus of comfort measures - request for [facility] - no escalation of care - Will be medically suitable for discharge to [facility] with Palliative Care when arrangements made and insurance auth approved (Ade Ramos, PA-C) PA Physician Supervision Note: I interviewed and examined the patient. Discussed with Ade Ramos PAC and agree with findings and plan as documented in the note. Any exceptions or clarifications are listed here: None Pt was seen and examined, discussed with at bedside and son in hallway Pt has some chills, no fever Progressive stage 4 bladder cancer with CKD stage 4, recent c. diff colitis, persistent metabolic acidosis, recent UTI, failure to thrive. Mental status has not cleared completely but has improved Cont palliative care while awaiting transfer to [facility] awaiting insurance auth. Documented By: Riki Yancey (Riki Yancey M.D.)
[2016-02-28 17:54] VITALS: TEMP 37.7
[2016-02-28] MEDS: ALFUZosin TAB 10 MG TAB PO SCH (20:41)
[2016-02-28 23:07] VITALS: BP 73/49; PULSE 93; TEMP 37.7; O2SAT 90
[2016-02-29 02:00] VITALS: BP 91/49; TEMP 36.5
[2016-02-29] MEDS: LEVOTHYROXINE 125 MCG TAB PO SCH (06:14)
[2016-02-29 07:33] VITALS: BP 86/40; PULSE 76; TEMP 36.5; O2SAT 91
[2016-02-29] MEDS: BOOST VANILLA PO SCH ×2 (08:00)
[2016-02-29 09:06] VITALS: O2SAT 92
[2016-02-29] MEDS: SACCHAROMYCES BOUL (FLORASTOR) 250 MG CAP PO SCH (09:22)
[2016-02-29] MEDS: CEROVITE ADV FORMULA TAB PO SCH (09:22)
[2016-02-29] MEDS: SODIUM BICARBONATE 650 MG TAB PO SCH ×2 (09:23→14:38)
[2016-02-29] MEDS: PANTOprazole SOD 40 MG TAB PO SCH (09:23)
[2016-02-29] MEDS: BENZONATATE 100MG CAP PO SCH ×2 (09:24→14:38)
[2016-02-29 10:27] LABS: MEAN CELL VOLUME 86.4 fL (80-100); MEAN CORPUSCULAR HEMOGLOBIN 27.2 pg (25-34); MEAN CORPUSCULAR HGB CONC 31.5 g/dl (32-36); MEAN PLATELET VOLUME 10.5 fL (7.4-10.4); PLATELET COUNT 241 K/uL (130-400); RED BLOOD COUNT 3.01 M/uL (4.7-6.1)
[2016-02-29] MEDS: CHOLESTYRAMINE LIGHT 4 GM PKT PO SCH (10:48)
[2016-02-29] MEDS: AVODART~ORDER AWAITING ACTION SCH ×2 (10:49→16:00)
[2016-02-29 10:53] LABS: BASO % 0.2 %; BASO ABS # 0.05 K/uL (0-0.2); COMPLETE YES; EOS % 0.3 %; IG% 0.6 %; LYMPH % 7.1 %; LYMPH ABS # 1.68 K/uL (1.2-3.4); MONO % 4.4 %; NEUT % 87.4 %
[2016-02-29 10:56] LABS: BUN/CREATININE RATIO 21.2 (10-20); CALCIUM 8.7 mg/dl (8.5-10.1); CREATININE 2.6 mg/dl (0.60-1.40); MAGNESIUM 2.2 mg/dl (1.8-2.4); POTASSIUM 3.7 mmol/L (3.5-5.1)
[2016-02-29 11:55] VITALS: BP 81/42; PULSE 76; TEMP 36.2; O2SAT 93
--- NOTE | 2016-02-29 14:35 | DIAGNOSTIC IMAGING REPORT ---
CHEST ONE VIEW PORTABLE HISTORY: Abnormal EKG. Short of breath. COMPARISON: Chest 02/21/2016. FINDINGS: Low lung volumes. The heart is stable in size. No pneumothorax. Trace bilateral pleural effusions. Right basilar linear density is consistent with subsegmental atelectasis. There is mild interstitial and vascular thickening consistent with congestive change. This remains unchanged. IMPRESSION: 1 No change in the mild pulmonary vascular congestion. 2. Trace bilateral pleural effusions. 3. Right basilar linear densities favor subsegmental atelectasis. Electronically signed by: John Reddy M.D. 02/29/2016 2:33 PM Dictated Date/Time: 02/29/2016 2:29 PM
[2016-02-29 14:43] VITALS: BP 91/52; PULSE 76; TEMP 36.6; O2SAT 95
--- NOTE | 2016-02-29 14:55 | Discharge Summary ---
Discharge Summary Admission Date: Feb 18, 2016 at 09:55 Discharge Date: Feb 29, 2016 Discharge Disposition: Home Principal Diagnosis: encephalopathy and sesis from urinary source with tonja and met bladder CA Problems/Secondary Diagnoses: elevated troponin, metabolic acidosis Medication Reconciliation New Medications: Benzonatate (Benzonatate) 100 Mg Cap 100 MG PO TID PRN for Cough for 7 Days, CAP Loperamide Hcl (Imodium) 2 Mg Cap 2 MG PO UD PRN for Diarrhea for 7 Days, CAP After each loose stool Pantoprazole (Pantoprazole Sodium) 40 Mg Tab 40 MG PO QAM for 15 Days, TAB Saccharomyces Boulardii (Florastor) 250 Mg Cap 250 MG PO DAILY for 15 Days, CAP Sodium Bicarbonate (Sodium Bicarbonate) 650 Mg Tab 1300 MG PO TID for 15 Days, TAB [Enteral Nutrition Formula] () 1 CAN LIQD 1 CAN PO BID for 15 Days Continued Medications: Acetaminophen/Codeine (Tylenol W/Codeine #3) 300 Mg/30 Mg Tab 1 TAB PO Q6 PRN for Pain, TAB Alfuzosin Hcl (Uroxatral) 10 Mg Tab 10 MG PO QPM, TAB Dutasteride (Avodart) 0.5 Mg Cap 0.5 MG PO QAM, CAP Furosemide (Lasix) 20 Mg Tab 20 MG PO Q2D, TAB NOON Levothyroxine Sodium (Levothyroxine Sodium) 125 Mcg Tab 1 TAB PO QAM for 90 Days, #90 TAB 3 Refills Multiple Vitamins W/ Minerals (Centrum Silver Adult 50+) 1 Tab Tab 1 TAB PO QAM Discontinued Medications: Aspirin (Aspirin Ec) 81 Mg Tab 81 MG PO QAM Discharge Exam Review of Systems: Constitutional: No chills, No fever, No sweats Respiratory: + dyspnea on exertion, No cough, No dyspnea at rest, No shortness of breath, No sputum Cardiovascular: No chest pain, No edema Abdomen: No nausea, No pain, No vomiting Psychiatric: + depression symptoms, No anhedonism Physical Exam: General Appearance: + mild distress, + thin Neck: supple, thyroid normal Respiratory/Chest: chest non-tender, + decreased breath sounds, + rhonchi ( bases) Cardiovascular: regular rate, rhythm, + systolic murmur Abdomen / GI: normal bowel sounds, non tender, soft Extremities: no pedal edema, normal range of motion Hospital Course PA Physician Supervision Note: 85 M with progressive bladder cancer developing sepsis after recent c diff colitis from ecoli uti poa, has developed acute renal failure and has had functional edecline, family and patient decided to move to [place]f with eye toward palliative care. 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 diff colitis, persistent metabolic acidosis, recent UTI, failure to thrive. Mental status has not cleared completely but has improved Cont palliative care while awaiting transfer to [facility] awaiting insurance auth. Documented By: Riki Yancey Total Time Spent: Greater than 30 minutes This includes examination of the patient, discharge planning, medication reconciliation, and communication with other providers. Discharge Instructions Please refer to the electronic Patient Visit Report (Discharge Instructions) for additional information.
[2016-02-29 15:39] VITALS: BP 91/52; PULSE 76; TEMP 36.6; O2SAT 95
== END 2016-02-29 17:47 | DRG 871 ==
LOC: ENRESERVDT → ENRESERVTM → C.EDC 20:22 → EDBD 20:22 → C.2T 23:41 → UNDOADMOB 23:41 → OBSVTOIN 02-18 09:55 → C.4E 02-22 19:44
PROVIDERS: ADMIT Hospitalist; ATTEND Internal Medicine
DX: A41.9 Sepsis, unspecified organism (principal); G93.41 Metabolic encephalopathy; N13.2 Hydronephrosis with renal and ureteral calculous obstruction; N39.0 Urinary tract infection, site not specified; E87.2 Acidosis; E87.0 Hyperosmolality and hypernatremia; N17.9 Acute kidney failure, unspecified; N18.4 Chronic kidney disease, stage 4 (severe); N32.1 Vesicointestinal fistula; N40.1 Benign prostatic hyperplasia with lower urinary tract symptoms; E87.6 Hypokalemia; C67.9 Malignant neoplasm of bladder, unspecified; I12.9 Hypertensive chronic kidney disease with stage 1 through stage 4 chronic kidney disease, or unspecified chronic kidney disease; E78.5 Hyperlipidemia, unspecified; E03.9 Hypothyroidism, unspecified; I25.10 Atherosclerotic heart disease of native coronary artery without angina pectoris; D50.9 Iron deficiency anemia, unspecified; Z66 Do not resuscitate; B96.20 Unspecified Escherichia coli [E. coli] as the cause of diseases classified elsewhere; Z51.5 Encounter for palliative care; R19.7 Diarrhea, unspecified; R32 Unspecified urinary incontinence; R62.7 Adult failure to thrive; Z68.28 Body mass index [BMI] 28.0-28.9, adult; R33.8 Other retention of urine; Z79.82 Long term (current) use of aspirin; Z79.899 Other long term (current) drug therapy

== ENCOUNTER → 2016-03-06 | Outpatient (CLI) | payer BC ==
[~2016-03-06] MED LIST changes: +ACET-749 PO; -ASPI81TA28 PO; +BENZ100C7 PO; +Enteral Nutrition Formula PO; +IMD2X PO; +PRT40 PO; +SACC250C3 PO; +SODI650T9 PO
[2016-03-06 09:46] LABS: MANUAL MICROSCOPIC REQUIRED? YES; REVIEW REQ? NO; SULFASALICYLIC ACID POS (NEG); URINE APPEARANCE SLIGHTLY CLOUDY (CLEAR); URINE COLOR RED; URINE SPECIFIC GRAVITY 1.006 (1.000-1.030)
[2016-03-06 09:50] LABS: URINE BACTERIA 2+ (NEG); URINE RBC >30 /hpf (0-4); URINE WBC >30 /hpf (0-5)
== END ==
LOC: C.LABCC 08:53
PROVIDERS: ATTEND Internal Medicine
DX: R82.99 Other abnormal findings in urine (principal)

== ENCOUNTER → 2016-03-08 | Outpatient (CLI) | payer BC ==
[2016-03-08 09:23] LABS: BASO % 0.2 %; BASO ABS # 0.04 K/uL (0-0.2); EOS % 2.1 %; HEMATOCRIT 26.6 % (42-52); IG% 0.5 %; LYMPH % 15.7 %; LYMPH ABS # 2.73 K/uL (1.2-3.4); MEAN CELL VOLUME 86.1 fL (80-100); MEAN CORPUSCULAR HEMOGLOBIN 26.2 pg (25-34); MEAN CORPUSCULAR HGB CONC 30.5 g/dl (32-36); MEAN PLATELET VOLUME 10.6 fL (7.4-10.4); MONO % 9.7 %; NEUT % 71.8 %; PLATELET COUNT 434 K/uL (130-400); RED BLOOD COUNT 3.09 M/uL (4.7-6.1); WHITE BLOOD COUNT 17.39 K/uL (4.8-10.8)
[2016-03-08 09:31] LABS: BLOOD UREA NITROGEN 43 mg/dl (7-18); BUN/CREATININE RATIO 21.6 (10-20); CALCIUM 8.7 mg/dl (8.5-10.1); CARBON DIOXIDE 30 mmol/L (21-32); CHLORIDE 102 mmol/L (98-107); GLUCOSE 79 mg/dl (70-99); POTASSIUM 4.1 mmol/L (3.5-5.1); SODIUM 141 mmol/L (136-145)
[2016-03-08 09:45] LABS: COMPLETE YES
== END ==
LOC: C.LABCC 09:07
PROVIDERS: ATTEND Internal Medicine
DX: N18.4 Chronic kidney disease, stage 4 (severe) (principal)

== ENCOUNTER → 2016-03-13 | Outpatient (CLI) | payer BC | END | disposition home or self-care (01) | LOC: C.LABCC 22:15 | PROVIDERS: ATTEND Internal Medicine | DX: R19.5 Other fecal abnormalities (principal) ==

== ENCOUNTER → 2016-03-16 | Outpatient (CLI) | payer BC ==
[2016-03-16 09:11] LABS: BASO % 0.4 %; BASO ABS # 0.08 K/uL (0-0.2); EOS % 1.4 %; HEMATOCRIT 25.3 % (42-52); IG% 0.7 %; LYMPH % 16.2 %; LYMPH ABS # 3.43 K/uL (1.2-3.4); MEAN CELL VOLUME 85.2 fL (80-100); MEAN CORPUSCULAR HEMOGLOBIN 25.6 pg (25-34); MEAN PLATELET VOLUME 10.7 fL (7.4-10.4); MONO % 9.4 %; NEUT % 71.9 %; PLATELET COUNT 400 K/uL (130-400); RED BLOOD COUNT 2.97 M/uL (4.7-6.1); WHITE BLOOD COUNT 21.19 K/uL (4.8-10.8)
[2016-03-16 09:20] LABS: BLOOD UREA NITROGEN 56 mg/dl (7-18); BUN/CREATININE RATIO 17.5 (10-20); CALCIUM 10.3 mg/dl (8.5-10.1); CARBON DIOXIDE 28 mmol/L (21-32); CHLORIDE 103 mmol/L (98-107); GLUCOSE 88 mg/dl (70-99); POTASSIUM 3.8 mmol/L (3.5-5.1); SODIUM 140 mmol/L (136-145)
[2016-03-16 09:42] LABS: COMPLETE YES
== END ==
LOC: C.LABCC 07:51
PROVIDERS: ATTEND Internal Medicine
DX: N18.4 Chronic kidney disease, stage 4 (severe) (principal)

== ENCOUNTER → 2016-03-20 | Outpatient (CLI) | payer BC ==
[2016-03-20 08:40] LABS: BASO % 0.4 %; BASO ABS # 0.11 K/uL (0-0.2); COMPLETE YES; EOS % 1.1 %; IG% 0.6 %; LYMPH ABS # 3.05 K/uL (1.2-3.4); MEAN CORPUSCULAR HEMOGLOBIN 26.9 pg (25-34); MEAN CORPUSCULAR HGB CONC 30.9 g/dl (32-36); MEAN PLATELET VOLUME 10.8 fL (7.4-10.4); MONO % 8.6 %; NEUT % 77.3 %; PLATELET COUNT 332 K/uL (130-400); RED BLOOD COUNT 3.68 M/uL (4.7-6.1); WHITE BLOOD COUNT 25.44 K/uL (4.8-10.8)
== END ==
LOC: C.LABCC 08:25
PROVIDERS: ATTEND Internal Medicine
DX: D64.9 Anemia, unspecified (principal)

== ENCOUNTER → 2016-03-21 | Outpatient (CLI) | payer BC ==
[2016-03-21 17:31] LABS: URINE APPEARANCE TURBID (CLEAR); URINE BILIRUBIN NEG (NEG); URINE COLOR ORANGE; URINE EPITHELIAL CELL AUTO >30 /lpf (0-5); URINE NITRITE POS (NEG); URINE SPECIFIC GRAVITY 1.007 (1.000-1.030); UROBILINOGEN NEG (NEG)
[2016-03-21 17:33] LABS: MANUAL MICROSCOPIC REQUIRED? NO; REVIEW REQ? YES
== END ==
LOC: C.LABCC 16:42
PROVIDERS: ATTEND Internal Medicine
DX: D72.829 Elevated white blood cell count, unspecified (principal)

== ENCOUNTER → 2016-03-23 | Outpatient (CLI) | payer BC ==
[2016-03-23 08:32] LABS: MEAN CELL VOLUME 86.5 fL (80-100); MEAN CORPUSCULAR HEMOGLOBIN 26.2 pg (25-34); MEAN CORPUSCULAR HGB CONC 30.3 g/dl (32-36); MEAN PLATELET VOLUME 10.8 fL (7.4-10.4); PLATELET COUNT 357 K/uL (130-400); WHITE BLOOD COUNT 27.17 K/uL (4.8-10.8)
[2016-03-23 09:08] LABS: ANISOCYTOSIS PRESENT; BASO % 0.4 %; BASO ABS # 0.11 K/uL (0-0.2); COMPLETE YES; EOS % 1.7 %; HYPOCHROMIA PRESENT; IG% 0.7 %; LYMPH % 13.5 %; LYMPH ABS # 3.68 K/uL (1.2-3.4); MONO % 7.9 %; NEUT % 75.8 %
== END ==
LOC: C.LABCC 07:38
PROVIDERS: ATTEND Internal Medicine
DX: D72.829 Elevated white blood cell count, unspecified (principal)

== ENCOUNTER → 2016-03-27 | Outpatient (CLI) | payer BC ==
[2016-03-27 08:22] LABS: HEMATOCRIT 29.6 % (42-52); MEAN CELL VOLUME 86.5 fL (80-100); MEAN CORPUSCULAR HEMOGLOBIN 26.3 pg (25-34); MEAN CORPUSCULAR HGB CONC 30.4 g/dl (32-36); MEAN PLATELET VOLUME 10.7 fL (7.4-10.4); PLATELET COUNT 347 K/uL (130-400); RED BLOOD COUNT 3.42 M/uL (4.7-6.1); WHITE BLOOD COUNT 28.52 K/uL (4.8-10.8)
[2016-03-27 09:01] LABS: BASO % 0.3 %; BASO ABS # 0.09 K/uL (0-0.2); COMPLETE YES; EOS % 2.1 %; IG% 0.6 %; LYMPH % 9.8 %; LYMPH ABS # 2.79 K/uL (1.2-3.4); MONO % 7.6 %; NEUT % 79.6 %
== END ==
LOC: C.LAB 07:41
PROVIDERS: ATTEND Internal Medicine
DX: N39.0 Urinary tract infection, site not specified (principal)